=== PATIENT | female | born 1975 | race Caucasian/White ===

== ENCOUNTER 2016-08-13 18:39 | Inpatient (IN) | payer BC ==
--- NOTE | 2016-08-13 19:51 | EDM.PDOC ---
ED HPI GENERAL MEDICAL PROBLEM - General Chief Complaint: Respiratory Problem Stated Complaint: LUNG PAIN Time Seen by Provider: 08/13/16 19:05 Source of Information: Reports: Patient, Family (), RN Notes Reviewed History Limitations: Reports: No Limitations - History of Present Illness INITIAL COMMENTS - FREE TEXT/NARRATIVE: The patient has lymphangioleiomatosis, aka MCNAIR, a rare genetic disorder that causes proliferation of abnormal smooth muscle and cystic lesion formation, affecting multiple organs, but especially the lungs. Common symptoms include progressively worsening LIN and asthma-like reversible airflow obstruction. About a third of patients will develop a spontaneous pneumothorax. The patient states that she developed a "gurgling" in her lower left ribs with inspiration, whenever she was in the left decubitus position 2 nights ago. She states that she hears a "weird sounds". She chronically has chest tightness, but states it is worse than usual. She also reports worsening dyspnea on exertion. She had nausea 2 nights ago, but none since. No recent fever, vomiting, constipation, diarrhea, or urinary symptoms. No prior similar symptoms. The patient's PCP is Emani Mcclendon. Her Iron Carrier is Dr. Forrest. Left Chest Pain Score (Numeric/FACES): 2 - Related Data Allergies Allergy/AdvReac Type Severity Reaction Status Date / Time shellfish derived Allergy Rash Verified 04/29/16 16:33 Home Meds: Home Meds Dextroamphetamine/Amphetamine [Adderall 20 mg Tablet] 1 tab PO TID 04/29/16 [ History] Fluticasone/Vilanterol [Breo Ellipta 100-25 MCG Inhalation Kit] 1 puff INH DAILY 04/29/16 [History] Meloxicam 1 tab PO DAILY 04/29/16 [History] Methocarbamol [Robaxin] 1 tab PO TID PRN 04/29/16 [History] Metoprolol Succinate 1 tab PO DAILY 04/29/16 [History] clonazePAM [Clonazepam] 1 tab PO BID PRN 04/29/16 [History] oxyCODONE HCl/Acetaminophen [oxyCODONE-Acetaminophen 5-325] 1 tab PO Q6H PRN 12/05 [History] traMADol [Ultram] 1 tab PO QID PRN 04/29/16 [History] Ibuprofen [IJD: Ibuprofen] 600 mg PO Q4H PRN #30 tablet 04/30/16 [Rx] Fluticasone/Vilanterol [Breo Ellipta 200-25 Mcg INH] 1 puff INH DAILY 08/13/16 [ History] Sirolimus 1 mg PO DAILY 08/13/16 [History] Past Medical History HEENT History: Reports: Allergic Rhinitis Cardiovascular History: Reports: Hypertension 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: Musculoskeletal History: Reports: Other (See Below) (lymphangioleiomatosis, aka MCNAIR) Psychiatric History: Reports: ADD, ADHD, Anxiety Hematologic History: Reports: Anemia, Iron Deficiency - Past Surgical History Female Surgical History: Reports: Section (x 2) Social & Family History - Tobacco Use Smoking Status *Q: Former Smoker Years of Tobacco use: 3 Used Tobacco, but Quit: Yes Month Tobacco Last Used: 10 yrs - Caffeine Use Caffeine Use: Reports: Soda - Alcohol Use Alcohol Use History: No - Recreational Drug Use Recreational Drug Use: No - Living Situation & Occupation Living situation: Reports: , with Spouse, with Family (3 kids) Occupation: Unemployed ED ROS GENERAL - Review of Systems Review Of Systems: See Below Constitutional: Reports: No Symptoms HEENT: Reports: No Symptoms Respiratory: Reports: No Symptoms Cardiovascular: Reports: No Symptoms Endocrine: Reports: No Symptoms GI/Abdominal: Reports: No Symptoms : Reports: No Symptoms Musculoskeletal: Reports: No Symptoms Skin: Reports: No Symptoms Neurological: Reports: No Symptoms Psychiatric: Reports: No Symptoms Hematologic/Lymphatic: Reports: No Symptoms Immunologic: Reports: No Symptoms ED EXAM, GENERAL - Physical Exam Exam: See Below Exam Limited By: No Limitations General Appearance: Alert, WD/WN, No Apparent Distress, Anxious Eye Exam: Bilateral Eye: Normal Inspection Ears: Normal External Exam, Hearing Grossly Normal Ear Exam: Bilateral Ear: Auricle Normal Nose: Normal Inspection, No Blood Throat/Mouth: Normal Inspection, Normal Lips, Normal Voice, No Airway Compromise Head: Atraumatic, Normocephalic Neck: Normal Inspection, Full Range of Motion Respiratory/Chest: No Respiratory Distress, Lungs Clear, Normal Breath Sounds, No Accessory Muscle Use, Other (No crepitus). No: Decreased Breath Sounds, Crackles, Rhonchi, Wheezing, Prolonged Expiration Cardiovascular: Normal Peripheral Pulses, Regular Rate, Rhythm, No Edema, No Gallop, No JVD, No Murmur, No Rub GI/Abdominal: Normal Bowel Sounds, Soft, Non-Tender, No Organomegaly, No Distention, No Abnormal Bruit, No Mass (Female) Exam: Normal External Exam, Normal Speculum Exam, Normal Bimanual Exam Rectal (Female) Exam: Normal Exam, Normal Rectal Tone Back Exam: Normal Inspection, Full Range of Motion, NT Extremities: Normal Inspection, Normal Range of Motion, Non-Tender, Normal Capillary Refill, No Pedal Edema Neurological: Alert, Oriented, CN II-XII Intact, Normal Cognition, Normal Gait, Normal Reflexes, No Motor/Sensory Deficits Psychiatric: Normal Affect, Normal Mood Skin Exam: Warm, Dry, Intact, Normal Color, No Rash Lymphatic: No Adenopathy Course - Vital Signs Last Recorded V/S: Last Vital Signs Temp 36.7 C 08/13/16 18:57 Pulse 72 08/13/16 21:55 Resp 20 08/13/16 18:57 BP 145/75 H 08/13/16 21:55 Pulse Ox 95 08/13/16 18:57 - Orders/Labs/Meds Orders: Active Orders 24 hr Category Date Time Status Chest 2V [CR] Stat Exams 08/13/16 19:26 Taken Chest w Cont [CT] Stat Exams 08/13/16 20:24 Taken Metoprolol Succinate [Toprol XL] Med 08/14/16 21:00 Active 50 mg PO BEDTIME Sodium Chloride 0.9% [Normal Saline] 1,000 ml Med 08/13/16 20:30 Active IV ASDIRECTED Sodium Chloride 0.9% [Saline Flush] Med 08/13/16 21:12 Active 10 ml FLUSH ONETIME PRN Medication Orders Sodium Chloride (Normal Saline) 1,000 mls @ 150 mls/hr IV ASDIRECTED NOEMÍ Last Admin: 08/13/16 20:51 Dose: 150 mls/hr Metoprolol Succinate (Toprol Xl) 50 mg PO BEDTIME NOEMÍ Last Admin: 08/13/16 21:55 Dose: 50 mg Sodium Chloride (Saline Flush) 10 ml FLUSH ONETIME PRN PRN Reason: Keep Vein Open Last Admin: 08/13/16 21:57 Dose: 10 ml Labs: Laboratory Tests 08/13/16 08/13/16 08/13/16 Range/Units 20:23 20:42 20:42 WBC 8.57 (3.98-10.04) K/mm3 RBC 5.05 (3.98-5.22) M/mm3 Hgb 14.4 (11.2-15.7) gm/L Hct 43.0 (34.1-44.9) % MCV 85.1 (79.4-94.8) fl MCH 28.5 (25.6-32.2) pg MCHC 33.5 (32.2-35.5) g/dl RDW Std Deviation 48.4 H (36.4-46.3) fL Plt Count 496 H (182-369) K/mm3 MPV 8.7 L (9.4-12.3) fl Neutrophils % (Manual) 62 H (40-60) % Band Neutrophils % 1 (0-10) % Lymphocytes % (Manual) 24 (20-40) % Atypical Lymphs % 0 % Monocytes % (Manual) 5 (2-10) % Eosinophils % (Manual) 7 H (0.7-5.8) % Basophils % (Manual) 1 (0.1-1.2) Platelet Estimate Adequate RBC Morph Comment Normal Puncture Site Rt radial ABG pH 7.42 (7.35-7.45) ABG pCO2 32.7 L (35.0-45.0) mmHg ABG pO2 65.0 L (80.0-100.0) mmHg ABG HCO3 20.7 L (22.0-26.0) meq/L ABG O2 Saturation 95.0 L (96.0-97.0) % ABG Base Excess -2.5 L (-2-2.0) Kayden Test Positive A-a Gradient 28 mmHg O2 Delivery Device Room air FiO2 21.00 (21.00-100.00) % Sodium 143 (136-145) mEq/L Potassium 3.8 (3.5-5.1) mEq/L Chloride 106 (98-107) mEq/L Carbon Dioxide 26 (21-32) mEq/L Anion Gap 14.8 (5-15) BUN 17 (7-18) mg/dL Creatinine 0.9 (0.55-1.02) mg/dL Est Cr Clr Drug Dosing 81.61 mL/min Estimated GFR (MDRD) > 60 (>60) mL/min BUN/Creatinine Ratio 18.9 H (14-18) Glucose 77 (74-106) mg/dL Calcium 9.2 (8.5-10.1) mg/dL Total Bilirubin 0.2 (0.2-1.0) mg/dL AST 19 (15-37) U/L ALT 27 (14-59) U/L Alkaline Phosphatase 89 (46-116) U/L Total Protein 8.4 H (6.4-8.2) g/dl Albumin 3.1 L (3.4-5.0) g/dl Globulin 5.3 gm/dL Albumin/Globulin Ratio 0.6 L (1-2) Meds: Medications Generic Name Dose Route Start Last Admin Trade Name Freq PRN Reason Stop Dose Admin Sodium Chloride 1,000 mls @ 150 mls/hr 08/13/16 20:30 08/13/16 20:51 Normal Saline IV 150 mls/hr ASDIRECTED NOEMÍ Administration Metoprolol Succinate 50 mg 08/14/16 21:00 08/13/16 21:55 Toprol Xl PO 50 mg BEDTIME NOEMÍ Administration Sodium Chloride 10 ml 08/13/16 21:12 08/13/16 21:57 Saline Flush FLUSH 10 ml ONETIME PRN Administration Keep Vein Open Discontinued Medications Generic Name Dose Route Start Last Admin Trade Name Freq PRN Reason Stop Dose Admin Iopamidol 80 ml 08/13/16 21:12 08/13/16 21:53 Isovue-370 (76%) IVPUSH 08/13/16 21:13 80 ml ONETIME ONE Administration Oxycodone/Acetaminophen 1 tab 08/13/16 21:45 08/13/16 21:56 Percocet 325-5 Mg PO 08/13/16 21:46 1 tab ONETIME ONE Administration - Radiology Interpretation Free Text/Narrative:: Two-view chest radiograph reviewed. Cardiac silhouette is within normal limits. No pulmonary vascular congestion, although there does appear to be diffusely increased pulmonary markings, consistent with pulmonary fibrosis. No pleural effusions. No focal infiltrate. There appears to be a very small pneumothorax at the left costophrenic angle. Formal read per the Radiologist pending. CT of the chest with IV contrast is read by virtual radiology as: 1. Findings consistent with lymphangioleiomyomatosis. 2. Small LEFT hydropneumothorax. - Re-Assessments/Exams Free Text/Narrative Re-Assessment/Exam: 08/13/16 20:33 Chest radiograph results discussed with Dr. Coffey, teletype mechanic at [facility], stonemason for Dr. Forrest. He is recommending we check a CT scan of the chest to not only confirm a normal thorax but also possible causes of pneumothorax, such as local infection. He would like me to check an ABG, then, presuming there is a pneumothorax, treated with 100% oxygen. This would require admission to the hospital to follow serial chest radiographs. The patient will eventually require pleurocentesis. 08/13/16 22:[address] Jesus at 22:21. He agrees to admit the patient to the medical floor. I will write bridge orders. Departure - Departure Time of Disposition: 22:23 Disposition: Admitted As Inpatient 67 Condition: fair Clinical Impression: Lymphangiomyomatosis - Discharge Information - My Orders Last 24 Hours: My Active Orders 08/13/16 19:26 Chest 2V [CR] Stat 08/13/16 20:24 Chest w Cont [CT] Stat 08/13/16 20:30 Sodium Chloride 0.9% [Normal Saline] 1,000 ml IV ASDIRECTED 08/13/16 21:12 Sodium Chloride 0.9% [Saline Flush] 10 ml FLUSH ONETIME PRN 08/14/16 21:00 Metoprolol Succinate [Toprol XL] 50 mg PO BEDTIME - Assessment/Plan Last 24 Hours: My Active Orders 08/13/16 19:26 Chest 2V [CR] Stat 08/13/16 20:24 Chest w Cont [CT] Stat 08/13/16 20:30 Sodium Chloride 0.9% [Normal Saline] 1,000 ml IV ASDIRECTED 08/13/16 21:12 Sodium Chloride 0.9% [Saline Flush] 10 ml FLUSH ONETIME PRN 08/14/16 21:00 Metoprolol Succinate [Toprol XL] 50 mg PO BEDTIME
[2016-08-13] MEDS ORDERED: Sodium Chloride 0.9% 1,000 ML IV SCH (20:30)
[2016-08-13] MEDS ORDERED: Iopamidol 755 Mg/ML 100 ML Bottle IVPUSH ONE (21:12)
[2016-08-13] MEDS ORDERED: Sodium Chloride 0.9% 10 ML Syringe FLUSH PRN (21:12)
[2016-08-13] MEDS ORDERED: Acetaminophen/oxyCODONE 325-5 MG Tab PO ONE (21:45)
[2016-08-14] MEDS ORDERED: traZODone 50 MG Tab PO PRN (00:09)
[2016-08-14] MEDS ORDERED: Cyclobenzaprine 10 MG Tab PO PRN (03:32)
[2016-08-14] MEDS: Acetaminophen/oxyCODONE 325-5 MG Tab PO PRN ×2 (03:45→13:57)
[2016-08-14] MEDS ORDERED: LORazepam 2 MG/ML MDV IV PRN (06:00)
[2016-08-14] MEDS ORDERED: Albuterol/Ipratropium 3.0-0.5 MG/3 ML Neb Soln NEB PRN (06:00)
[2016-08-14] MEDS ORDERED: Ibuprofen 400 MG Tab PO PRN (06:00)
[2016-08-14] MEDS ORDERED: Bisacodyl 5 MG Tab PO PRN (06:00)
[2016-08-14] MEDS ORDERED: Promethazine 12.5 MG in Sodium Chloride 0.9% 50 ML IV PRN (06:00)
[2016-08-14] MEDS ORDERED: Polyethylene Glycol 3350 Powder 17 GM Packet PO PRN (06:00)
[2016-08-14] MEDS ORDERED: Ondansetron 4 MG/2 ML SDV IV PRN (06:00)
[2016-08-14] MEDS ORDERED: Acetaminophen 325 MG Tab PO PRN (06:00)
[2016-08-14] MEDS ORDERED: hydrALAZINE 20 MG/ML SDV IVPUSH PRN (06:00)
[2016-08-14] MEDS ORDERED: Metoprolol Tartrate 5 MG/5 ML SDV IVPUSH PRN (06:00)
[2016-08-14] MEDS ORDERED: Temazepam 15 MG Cap PO PRN (06:00)
[2016-08-14] MEDS ORDERED: Docusate Sodium 100 MG Cap PO PRN (06:00)
[2016-08-14] MEDS ORDERED: HYDROmorphone 0.5 MG/0.5 ML Syringe IVPUSH PRN (06:00)
--- NOTE | 2016-08-14 06:00 | PCM.HP ---
H&P History of Present Illness - General Date of Service: 08/14/16 Admit Problem/Dx: Admission Diagnosis/Problem Admission Diagnosis/Problem Spontaneous pneumothorax Source of Information: Patient, Old Records, Provider, RN Notes Reviewed History Limitations: Reports: No Limitations - History of Present Illness Initial Comments - Free Text/Narative: This is a 40 yo white female with past medical hx/o HTN, AR, MCNAIR ( Lymphangioleiomyomatosis), ADD/ADHD, Anxiety and SHALINI who comes in with worsening shortness of breath that started 3 days ago. Patient feels a pooping sound when she breaths localized to her left chest. She admits to having chronic chest tightness but no worse than usual. She denies any signs of systemic infection. Patient follows Dr. Forrest, Primary Special Educator in [place]. Dr. Coffey mohs surgeon railroad brakeman was consult and recommended patient get a CT scan, r/o infection and ABG. If pos for pneumothorax, to treat with 100% O2 with serial CXR. Her work up in ED shows, a CBC remarkable for platelet 496. Her chemistry is significant for total protein of 8.4, and albumin 3.1. Her ABG shows pH 7.42, pCO2 32.7, pO2 65, HCO3 20.7, and O2 sat of 95% on RA. her CT scan report reads Diffuse bilateral thin walled cysts consistent with lymphangioleiomyomatosis and small left hydropneumothorax. Patient was admitted for medical management of MCNAIR and Small Left Sided Hydropneumothorax. Left Chest Pain Score (Numeric/FACES): 2 - Related Data Allergies/Adverse Reactions: Allergies Allergy/AdvReac Type Severity Reaction Status Date / Time shellfish derived Allergy Rash Verified 04/29/16 16:33 Home Medications: Home Meds Dextroamphetamine/Amphetamine [Adderall 20 mg Tablet] 1 tab PO TID 04/29/16 [ History] Fluticasone/Vilanterol [Breo Ellipta 100-25 MCG Inhalation Kit] 1 puff INH DAILY 04/29/16 [History] Meloxicam 1 tab PO BEDTIME 04/29/16 [History] Methocarbamol [Robaxin] 1 tab PO TID PRN 04/29/16 [History] clonazePAM [Clonazepam] 1 tab PO BID PRN 04/29/16 [History] oxyCODONE HCl/Acetaminophen [oxyCODONE-Acetaminophen 5-325] 1 tab PO Q6H PRN 12/05 [History] traMADol [Ultram] 1 tab PO QID PRN 04/29/16 [History] Ibuprofen [IJD: Ibuprofen] 600 mg PO Q4H PRN #30 tablet 04/30/16 [Rx] Fluticasone/Vilanterol [Breo Ellipta 200-25 Mcg INH] 1 puff INH DAILY 08/13/16 [ History] Sirolimus 1 mg PO DAILY 08/13/16 [History] traZODone 50 mg PO BEDTIME PRN 08/13/16 [History] Cyclobenzaprine HCl [Cyclobenzaprine HCl] 10 mg PO BID PRN 08/14/16 [History] Metoprolol Succinate 50 mg PO BEDTIME 08/14/16 [History] Past Medical History - Past Health History Medical/Surgical History: Denies Medical/Surgical History HEENT History: Reports: Allergic Rhinitis Cardiovascular History: Reports: Hypertension Respiratory History: Reports: Other (See Below) Other Respiratory History: LAMS - lymphangioleiomyomatosis Gastrointestinal History: Reports: Other (See Below) Other Gastrointestinal History: liver cyst - presents with the LAMS Genitourinary History: Reports: Renal Calculus 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 Generalized pain from chemo drug Neurological History: Reports: None Psychiatric History: Reports: ADD, ADHD, Anxiety Endocrine/Metabolic History: Reports: None Hematologic History: Reports: Anemia, Iron Deficiency, Other (See Below) Other Hematologic History: both related to Immunologic History: Reports: Immunosuppression Other Immunologic History: on an immnosuppresent drug for the LAMS Oncologic (Cancer) History: Reports: None Other Oncologic History: LMA present - Lymphangioleiomyomatosis Dermatologic History: Reports: None - Past Surgical History Head Surgeries/Procedures: Reports: None Female Surgical History: Reports: Section Social & Family History - Family History Family Medical History: Noncontributory - Tobacco Use Smoking Status *Q: Former Smoker Years of Tobacco use: 2 Packs/Tins Daily: 1 Used Tobacco, but Quit: Yes Month Tobacco Last Used: 10 years ago Second Hand Smoke Exposure: No - Caffeine Use Caffeine Use: Reports: Soda Other Caffeine Use: sometimes - Recreational Drug Use Recreational Drug Use: No - Living Situation & Occupation Living situation: Reports: , with Spouse, with Family (3 kids) Occupation: Unemployed H&P Review of Systems - Review of Systems: Review Of Systems: ROS reveals no pertinent complaints other than HPI. Exam - Exam Exam: See Below - Vital Signs Vital Signs: Last Vital Signs Temp 36.6 C 08/13/16 23:26 Pulse 93 08/13/16 23:26 Resp 18 08/13/16 23:26 BP 127/66 08/13/16 23:26 Pulse Ox 100 08/13/16 23:26 Weight: 66.224 kg - Exam Quality Assessment: Supplemental Oxygen General: Alert, Oriented, Cooperative. No: Mild Distress HEENT: Conjunctiva Clear, EACs Clear, EOMI, Hearing Intact, Mucosa Moist & [place] , Nares Patent, Normal Nasal Septum, Posterior Pharynx Clear, Pupils Equal, Pupils Reactive Neck: Supple, Trachea Midline Lungs: Clear to Auscultation, Normal Respiratory Effort, Other (no crunchy sound or crepitus) Cardiovascular: Regular Rhythm Abdomen: Normal Bowel Sounds, Soft. No: Pelvis Stable, Organomegaly, Tenderness (Female) Exam: Deferred Rectal (Female) Exam: Deferred Back Exam: Normal Inspection, Decreased Range of Motion Extremities: Normal Inspection, Normal Pulses. No: Cyanosis, Edema Peripheral Pulses: 3+: Posterior Tibial (L), Posterior Tibial (R), Dorsalis Pedis (L), Dorsalis Pedis (R) Skin: Warm, Dry, Intact Neuro Extensive - Mental Status: Oriented x3, Normal Cognition, Memory Intact Neuro Extensive - Motor, Sensory, Reflexes: CN II-XII Intact, Normal Gait Psychiatric: Alert, Normal Affect, Normal Mood - Patient Data Result Diagrams: 08/13/16 20:42 08/13/16 20:42 *Q Meaningful Use (ADM) - VTE *Q VTE Criteria *Q: - Stroke *Q Stroke Criteria *Q: - AMI *Q AMI Criteria *Q: Problem List Initiated/Reviewed/Updated: Yes Orders Last 24hrs: Active Orders 24 hr Category Date Time Status Oxygen Therapy [RC] ASDIRECTED Care 08/14/16 01:52 Active Regular Diet [DIET] Diet 08/14/16 Breakfast Active Acetaminophen/oxyCODONE [Percocet 325-5 MG] Med 08/14/16 03:32 Active 1 tab PO Q6H PRN Cyclobenzaprine [Flexeril] Med 08/14/16 03:32 Active 10 mg PO BID PRN Meloxicam Med 08/14/16 21:00 Pending 1 tab PO BEDTIME traZODone Med 08/14/16 00:09 Active 50 mg PO BEDTIME PRN Resuscitation Status Routine Resus Stat 08/14/16 03:47 Ordered Medication Orders Cyclobenzaprine HCl (Flexeril) 10 mg PO BID PRN PRN Reason: Pain Last Admin: 08/14/16 03:45 Dose: 10 mg Metoprolol Succinate (Toprol Xl) 50 mg PO BEDTIME NOEMÍ Last Admin: 08/13/16 21:55 Dose: 50 mg Non-Formulary Medication (Meloxicam) 1 tab PO BEDTIME NOEMÍ Oxycodone/Acetaminophen (Percocet 325-5 Mg) 1 tab PO Q6H PRN PRN Reason: Pain Last Admin: 08/14/16 03:45 Dose: 1 tab Sodium Chloride (Saline Flush) 10 ml FLUSH ONETIME PRN PRN Reason: Keep Vein Open Last Admin: 08/13/16 21:57 Dose: 10 ml Trazodone HCl (Trazodone) 50 mg PO BEDTIME PRN PRN Reason: Insomnia Last Admin: 08/14/16 00:26 Dose: 50 mg Assessment/Plan Comment:: Assessment/Plan: Acute: MCNAIR (Lymphangioleiomyomatosis) - Supportive care - Follow up with Primary Special Educator after discharge - She appears to be fairly stable Small Left Sided Hydropneumothorax - 2/2 MCNAIR - Serial CXR - Continue 100% O2 Therapy - Consider GS consult if she becomes more symptomatic or increasing pneumothorax size Chronic: AR HTN ADD/ADHD Anxiety Chronic Pain SHALINI Plan: Admitted to the floor overnight with bridged orders Resume Home Meds Routine AM Labs RT consult SW/NICO for d/c planning Telephone Consult with Pulmo [facility]. Daily
[2016-08-14] MEDS ORDERED: ClonazePAM 0.5 MG Tab PO PRN (06:04)
[2016-08-14] MEDS ORDERED: traMADol 50 MG Tab PO PRN (06:04)
[2016-08-14] MEDS ORDERED: Methocarbamol 500 MG Tab PO PRN (06:30)
[2016-08-14] MEDS ORDERED: Formoterol/Mometasone 200-5 MCG 8.8 GM Inhaler IH SCH (06:30)
[2016-08-14] MEDS ORDERED: Metoprolol Succinate 50 MG Tab.ER PO SCH ×2 (09:00→21:00)
[2016-08-14] MEDS ORDERED: Enoxaparin 40 MG/0.4 ML Syringe SUBCUT SCH (09:00)
[2016-08-14] MEDS ORDERED: Non-Formulary Medication 1 Each (Fluticasone/Vilanterol 1 PUFF) INH SCH (09:00)
[2016-08-14] MEDS: Morphine 2 MG/ML Syringe IVPUSH PRN ×2 (09:14→15:21)
[2016-08-14] MEDS: Dextroamphetamine/Amphetamine [Adderall 20 Mg Tablet] PO SCH ×2 (09:24→15:30)
[2016-08-14 12:33] VITALS: BP 111/90
--- NOTE | 2016-08-14 14:27 | CR ---
Chest: Portable view of the chest was obtained. Comparison: Previous chest x-ray of 08/13/16. Moderate sized pneumothorax is seen. This has increased in size from previous exam. This involves approximately 30-40% of the chest. Diffuse interstitial change and cystic findings are seen throughout the chest which are stable. Heart size and mediastinum are normal. Impression: 1. Increasing size of left sided pneumothorax. Consider chest tube. Diagnostic code #5
[2016-08-14] MEDS ORDERED: LORazepam 2 MG/ML MDV IVPUSH ONE (15:15)
--- NOTE | 2016-08-14 15:23 | PCM.SN ---
- Free Text/Narrative Note: Repeat CXR shows increasing size if left sided pneumothorax. Called in report to Dr. Coffey plastic production machine setter [employer]. He wants chest tube placement and then pleurodesis afterwards. Informed him we could only do chest tube placement here. Dr. Coffey wants either pig tail or small sized tube but told him all our tubes comes standard-big based on my observations. Informed Dr. Coffey I will be transferring her to [place]. Dr. Coffey agreed to be consulted.
--- NOTE | 2016-08-14 15:29 | PCM.DCSUM1 ---
Discharge Summary - Hospital Course Brief History: This is a 40 yo white female with past medical hx/o HTN, AR, MCNAIR (Lymphangioleiomyomatosis), ADD/ADHD, Anxiety and SHALINI who comes in with worsening shortness of breath that started 3 days ago. Patient feels a pooping sound when she breaths localized to her left chest. She admits to having chronic chest tightness but no worse than usual. She denies any signs of systemic infection. She was admitted for medical management of small left sided pneumothorax. - Discharge Data Discharge Date: 08/14/16 Discharge Disposition: DC/Tfer to Acute Hospital 02 Condition: Good - Discharge Diagnosis/Problem(s) (1) Pulmonary lymphangioleiomyomatosis SNOMED Code(s): 093413341, 925605139 ICD Code: J84.81 - LYMPHANGIOLEIOMYOMATOSIS Status: Acute Current Visit: Yes (2) Pneumothorax on left SNOMED Code(s): 641268200 ICD Code: J93.9 - PNEUMOTHORAX, UNSPECIFIED Status: Acute Current Visit: Yes (3) Anxiety and depression SNOMED Code(s): 654201866 ICD Code: F41.9 - ANXIETY DISORDER, UNSPECIFIED; F32.9 - MAJOR DEPRESSIVE DISORDER, SINGLE EPISODE, UNSPECIFIED Status: Chronic Current Visit: Yes - Patient Summary/Data Operative Procedure(s) Performed: None Complications: Worsening left sized pneumothorax Consults: Consultations 08/14/16 06:02 Consult to Case Management [CONS] Routine Consult to Foreign Exchange Services Manager [CONS] Routine Consult to Spiritual Care [CONS] Routine OT Evaluation and Treatment [CONS] Routine PT Evaluation and Treatment [CONS] Routine Respiratory Care Assess and Treatment [CONS] Routine Recommended Follow-up Testing/Procedures: Chest tube placement and pleurodesis Hospital Course: Patient was admitted for medical management of small left sided pneumothorax. However her follow up CXR shows worsening size. We called [facility] Dr. Coffey and he recommended chest tube placement and pleurodesis. Unfortunately nobody does pleurodosis here so we decided she be shipped out to [place]. Dr. Coffey agreed to be consulted. Patient will be under the services of Dr. Trammell , Hospitalist. Her vitals are stable. She leave via ground once transportation gets here. - Patient Instructions Diet: Usual Diet as Tolerated, NPO Activity: As Tolerated Driving: Do Not Drive Showering/Bathing: May Shower Notify Provider of: Increased Pain, Swelling and Redness, Nausea and/or Vomiting Other/Special Instructions: - Transfer to [facility] under the services of the . Lesa Cuenca will be consulting. - Discharge Plan Home Medications: Home Meds Dextroamphetamine/Amphetamine [Adderall 20 mg Tablet] 1 tab PO TID 04/29/16 [ History] Fluticasone/Vilanterol [Breo Ellipta 100-25 MCG Inhalation Kit] 1 puff INH DAILY 04/29/16 [History] Meloxicam 1 tab PO BEDTIME 04/29/16 [History] Methocarbamol [Robaxin] 1 tab PO TID PRN 04/29/16 [History] clonazePAM [Clonazepam] 1 tab PO BID PRN 04/29/16 [History] oxyCODONE HCl/Acetaminophen [oxyCODONE-Acetaminophen 5-325] 1 tab PO Q6H PRN 12/05 [History] traMADol [Ultram] 1 tab PO QID PRN 04/29/16 [History] Ibuprofen [IJD: Ibuprofen] 600 mg PO Q4H PRN #30 tablet 04/30/16 [Rx] Fluticasone/Vilanterol [Breo Ellipta 200-25 Mcg INH] 1 puff INH DAILY 08/13/16 [ History] Sirolimus 1 mg PO DAILY 08/13/16 [History] traZODone 50 mg PO BEDTIME PRN 08/13/16 [History] Cyclobenzaprine HCl 10 mg PO BID PRN 08/14/16 [History] Metoprolol Succinate 50 mg PO BEDTIME 08/14/16 [History] Referrals: Emani Mcclendon, [employer] DYEING MACHINE TENDER [Primary Care Provider] - - Discharge Summary/Plan Comment DC Time >30 min.: Yes (45 mins) Discharge Summary/Plan Comment: Transfer to [facility] for upper level or care - General Info Date of Service: 08/14/16 Admission Dx/Problem (Free Text: Admission Diagnosis/Problem Admission Diagnosis/Problem Spontaneous pneumothorax Subjective Update: Follow Up Functional Status: Reports: pain controlled, tolerating diet, ambulating, urinating. Denies: new symptoms - Review of Systems General: Denies: Fever, Weakness, Fatigue, Malaise, Chills HEENT: Reports: no symptoms Pulmonary: Reports: shortness of breath Cardiovascular: Denies: Chest Pain, Palpitations, Dyspnea on Exertion Gastrointestinal: Denies: Abdominal pain, Nausea, Vomiting Genitourinary: Reports: no symptoms Musculoskeletal: Reports: no symptoms Skin: Reports: no symptoms Neurological: Denies: Confusion, Dizziness, Difficulty Walking, Weakness, Gait Disturbance Psychiatric: Reports: anxiety. Denies: confusion, depression, agitation, hallucinations Systems Review Comment: No overnight or acuet issue. She i relatively stable. - Patient Data Vitals - Most Recent: Last Vital Signs Temp 37.1 C 08/14/16 12:28 Pulse 85 08/14/16 12:28 Resp 12 08/14/16 12:28 BP 111/90 08/14/16 12:28 Pulse Ox 100 08/14/16 14:30 Weight - Most Recent: 66.224 kg I&O - Last 24 hours: Intake & Output 08/14/16 08/14/16 08/14/16 06:59 14:59 22:59 Intake Total 917 120 Output Total 400 Balance 517 120 Med Orders - Current: Current Medications Acetaminophen (Tylenol) 650 mg PO Q4H PRN PRN Reason: Pain (Mild 1-3)/fever Albuterol/Ipratropium (Duoneb 3.0-0.5 Mg/3 Ml) 3 ml NEB Q4H PRN PRN Reason: Shortness Of Breath/wheezing Bisacodyl (Dulcolax) 5 mg PO DAILY PRN PRN Reason: Constipation Clonazepam (Klonopin) 0.5 mg PO BID PRN PRN Reason: Anxiety Cyclobenzaprine HCl (Flexeril) 10 mg PO BID PRN PRN Reason: Pain Last Admin: 08/14/16 03:45 Dose: 10 mg Docusate Sodium (Colace) 100 mg PO BID PRN PRN Reason: Constipation Enoxaparin Sodium (Lovenox) 40 mg SUBCUT DAILY NOEMÍ Last Admin: 08/14/16 09:17 Dose: 40 mg Hydralazine HCl (Apresoline) 20 mg IVPUSH Q4H PRN PRN Reason: Hypertension Hydromorphone HCl (Dilaudid) 0.25 mg IVPUSH Q2H PRN PRN Reason: Pain (severe 7-10) Promethazine HCl 12.5 mg/ (Sodium Chloride) 50.5 mls @ 100 mls/hr IV Q6H PRN PRN Reason: Nausea/Vomiting Ibuprofen (Motrin) 400 mg PO Q6H PRN PRN Reason: Pain (mild 1-3) Lorazepam (Ativan) 1 mg IV Q6H PRN PRN Reason: Anxiety Lorazepam (Ativan) 2 mg IVPUSH ONETIME ONE Stop: 08/14/16 15:16 Methocarbamol (Robaxin) 750 mg PO TID PRN PRN Reason: Spasms Metoprolol Succinate (Toprol Xl) 50 mg PO BEDTIME [facility] Last Admin: 08/13/16 21:55 Dose: 50 mg Metoprolol Tartrate (Lopressor) 5 mg IVPUSH Q4H PRN PRN Reason: Tachycardia Mometasone Furoate/Formoterol Fumar (Dulera 200-5 Mcg) 2 puff IH BIDRT [facility] Last Admin: 08/14/16 09:55 Dose: 2 puff Morphine Sulfate (Morphine) 1 mg IVPUSH Q4H PRN PRN Reason: Dyspnea Last Admin: 08/14/16 15:21 Dose: 1 mg Ondansetron HCl (Zofran) 4 mg IV Q6H PRN PRN Reason: Nausea/Vomiting Oxycodone/Acetaminophen (Percocet 325-5 Mg) 1 tab PO Q6H PRN PRN Reason: Pain Last Admin: 08/14/16 13:57 Dose: 1 tab Meloxicam 15 Mg 0 each PO BEDTIME [facility] Dextroamphetamine/Amphetamine [ Adderall 20 Mg Tablet] 0 each PO TID [facility] Last Admin: 08/14/16 09:24 Dose: Not Given Sirolimus 1 Mg 0 each PO DAILY [facility] Last Admin: 08/14/16 09:24 Dose: Not Given Polyethylene Glycol (Miralax) 17 gm PO DAILY PRN PRN Reason: Constipation Senna/Docusate Sodium (Senna Plus) 1 tab PO BID PRN PRN Reason: Constipation Temazepam (Restoril) 15 mg PO BEDTIME PRN PRN Reason: Sleep Tramadol HCl (Ultram) 50 mg PO QID PRN PRN Reason: Pain Trazodone HCl (Trazodone) 50 mg PO BEDTIME PRN PRN Reason: Insomnia Last Admin: 08/14/16 00:26 Dose: 50 mg Discontinued Medications Sodium Chloride (Normal Saline) 1,000 mls @ 150 mls/hr IV ASDIRECTED [facility] Last Admin: 08/13/16 20:51 Dose: 150 mls/hr Iopamidol (Isovue-370 (76%)) 80 ml IVPUSH ONETIME ONE Stop: 08/13/16 21:13 Last Admin: 08/13/16 21:53 Dose: 80 ml Metoprolol Succinate (Toprol Xl) 100 mg PO DAILY [facility] Last Admin: 08/14/16 09:11 Dose: Not Given Non-Formulary Medication (Fluticasone/Vilanterol) 1 puff INH DAILY [facility] Oxycodone/Acetaminophen (Percocet 325-5 Mg) 1 tab PO ONETIME ONE Stop: 08/13/16 21:46 Last Admin: 08/13/16 21:56 Dose: 1 tab Sodium Chloride (Saline Flush) 10 ml FLUSH ONETIME PRN PRN Reason: Keep Vein Open Last Admin: 08/13/16 21:57 Dose: 10 ml *Q Meaningful Use (DIS) - VTE *Q VTE Criteria *Q: - Stroke *Q Stroke Criteria *Q: - AMI *Q AMI Criteria *Q:
--- NOTE | 2016-08-15 08:17 | CT ---
CT chest Technique: Multiple axial sections were obtained from above the lung apices inferiorly through the lung bases. Intravenous contrast was utilized. Comparison: No previous chest CT, previous chest x-ray performed earlier on the same day (7:53 PM). Findings: Mediastinum and hilar regions show no adenopathy or mass. No chest wall abnormalities are seen. No coronary artery calcification is noted. Small portion of the visualized upper abdominal structures show a vague low-density lesion within the right lobe of the liver measuring approximately 1.1 cm in size which is likely benign. Innumerable air-filled cysts seen throughout both lungs compatible with clinical history of lymphangioleiomyomatosis (MCNAIR). Interstitial fibrosis is also seen diffusely within both lungs. Left-sided pneumothorax is seen with small amount of pleural fluid also noted within the left base. No right-sided pneumothorax is seen. Bone window settings were reviewed which show minimal degenerative spurring within the spine. Impression: 1. Left-sided hydropneumothorax which by CT exam appears to involve 20-30 percent of the lung. Consider chest tube. 2. Diffuse cystic changes and mild diffuse interstitial fibrosis. Findings are compatible with clinical history of lymphangioleiomyomatosis . 3. Other findings felt to be incidental as described above. Diagnostic code #5 Agree with preliminary report issued by [employer] ([employer] preliminary report dictated on 08/13/16, 11:05 PM Central Time)
--- NOTE | 2016-08-15 08:17 | CR ---
Chest: Two views of the chest were obtained. Comparison: Previous chest x-ray of 10/31/14. Heart size and mediastinum are normal. Lung markings are increased which appear to be chronic but improved from prior exam. Lungs are hyperinflated. Small left sided pneumothorax is seen measuring approximately 15-20 percent. Blunting of the lateral left costophrenic angle is seen compatible with small amount of fluid. Bony structures are grossly intact. Impression: 1. Small hydropneumothorax with pneumothorax measuring around 15-20 percent. 2. Chronic increased lung markings which are improved from previous study of 10/31/14. Diagnostic code #5
== END 2016-08-14 16:04 | DRG 143 ==
LOC: JD.ED 18:39 → JD.MS 22:44
PROVIDERS: ADMIT Internal Medicine; ATTEND Internal Medicine
DX: J94.8 Other specified pleural conditions (principal); J84.81 Lymphangioleiomyomatosis; I10 Essential (primary) hypertension; J30.9 Allergic rhinitis, unspecified; D50.9 Iron deficiency anemia, unspecified; F41.9 Anxiety disorder, unspecified; Z79.899 Other long term (current) drug therapy; Z87.891 Personal history of nicotine dependence; Z91.013 Allergy to seafood; F90.9 Attention-deficit hyperactivity disorder, unspecified type; G89.29 Other chronic pain
CPT/HCPCS: 36415; 36600; 71010; 71010-26; 71020; 71020-26; 71260; 71260-26; 80053; 82803; 85025; 94664; 96360; 96361; 97161-GP; 99285; 99285-25; A9270-GY; J1650; J2060; J2270; J7040; J7050; Q9967

== ENCOUNTER 2016-08-24 11:38 | Emergency (ER) | payer BC ==
--- NOTE | 2016-08-24 12:06 | EDM.PDOC ---
ED HPI GENERAL MEDICAL PROBLEM - General Chief Complaint: Lower Extremity Injury/Pain Stated Complaint: LEG PAIN Time Seen by Provider: 08/24/16 12:01 Source of Information: Reports: Patient, Family (spouse) History Limitations: Reports: No Limitations - History of Present Illness INITIAL COMMENTS - FREE TEXT/NARRATIVE: 40-year-old female presents to the ED for evaluation of bilateral calf pain. Concern for DVT presented itself after she discussed her recent hospitalization with nurse. Patient was admitted to [facility] in [facility] due to a pneumothorax. She had a initial Heimlich valve placed for 48 hours but it failed to reduce the pneumothorax. She therefore then had a formal thoracotomy with pleural thesis and pleurectomy and use of talcum powder to provide dermodesis. She had a chest tube in place for 48 hours and was removed last Tuesday. Supposedly she's been laying around a bit more than certainly normally. She has pain in both calf muscles and gastrocnemius muscles distribution. Denies any shortness of breath or pleuritic pain. Onset: Gradual (Noticed calf muscle tenderness yesterday.) Onset Date: 08/23/16 Duration: Hour(s):, Constant Location: Reports: Lower Extremity, Left, Lower Extremity, Right (The distribution of the calf musculature posteriorly. Must musculature posteriorly.) Quality: Reports: Ache Severity: Moderate (Worsened by walking.) Improves with: Reports: Rest Worsens with: Reports: Movement Context: Denies: Activity (Walking.), Exercise, Lifting, Sick Contact, Trauma, Other Associated Symptoms: Reports: No Other Symptoms, Chest Pain (Has a little chest pain at the chest tube insertion site. The wound in this area was reviewed and it is healing satisfactorily.). Denies: Confusion, Cough, cough w sputum Treatments PER DIEM CLERK: Reports: Other (see below) (None.Did receive Lovenox injections subcutaneously in the abdomen while she was hospitalized.) - Related Data Allergies Allergy/AdvReac Type Severity Reaction Status Date / Time shellfish derived Allergy Rash Verified 04/29/16 16:33 Home Meds: Home Meds Dextroamphetamine/Amphetamine [Adderall 20 mg Tablet] 1 tab PO TID 04/29/16 [ History] Fluticasone/Vilanterol [Breo Ellipta 100-25 MCG Inhalation Kit] 1 puff INH DAILY 04/29/16 [History] Meloxicam 1 tab PO BEDTIME 04/29/16 [History] Methocarbamol [Robaxin] 1 tab PO TID PRN 04/29/16 [History] clonazePAM [Clonazepam] 1 tab PO BID PRN 04/29/16 [History] oxyCODONE HCl/Acetaminophen [oxyCODONE-Acetaminophen 5-325] 1 tab PO Q6H PRN 12/05 [History] traMADol [Ultram] 1 tab PO QID PRN 04/29/16 [History] Ibuprofen [IJD: Ibuprofen] 600 mg PO Q4H PRN #30 tablet 04/30/16 [Rx] Fluticasone/Vilanterol [Breo Ellipta 200-25 Mcg INH] 1 puff INH DAILY 08/13/16 [ History] Sirolimus 1 mg PO DAILY 08/13/16 [History] traZODone 50 mg PO BEDTIME PRN 08/13/16 [History] Cyclobenzaprine HCl 10 mg PO BID PRN 08/14/16 [History] Metoprolol Succinate 50 mg PO BEDTIME 08/14/16 [History] Past Medical History - Past Health History Medical/Surgical History: Denies Medical/Surgical History HEENT History: Reports: Allergic Rhinitis Cardiovascular History: Reports: Hypertension Respiratory History: Reports: Other (See Below) Other Respiratory History: LAMS - lymphangioleiomyomatosis Gastrointestinal History: Reports: Other (See Below) Other Gastrointestinal History: liver cyst - presents with the LAMS Genitourinary History: Reports: Renal Calculus Other Genitourinary History: 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 Generalized pain from chemo drug Neurological History: Reports: None Psychiatric History: Reports: ADD, ADHD, Anxiety Endocrine/Metabolic History: Reports: None Hematologic History: Reports: Anemia, Iron Deficiency, Other (See Below) Other Hematologic History: both related to Immunologic History: Reports: Immunosuppression Other Immunologic History: on an immnosuppresent drug for the LAMS Oncologic (Cancer) History: Reports: None Other Oncologic History: LMA present - Lymphangioleiomyomatosis Dermatologic History: Reports: None - Past Surgical History Head Surgeries/Procedures: Reports: None Female Surgical History: Reports: Section Social & Family History - Family History Family Medical History: Noncontributory - Tobacco Use Smoking Status *Q: Former Smoker Years of Tobacco use: 2 Packs/Tins Daily: 1 Used Tobacco, but Quit: Yes Month Tobacco Last Used: 10 years ago Second Hand Smoke Exposure: No - Caffeine Use Caffeine Use: Reports: Soda Other Caffeine Use: sometimes - Recreational Drug Use Recreational Drug Use: No - Living Situation & Occupation Living situation: Reports: , with Spouse, with Family (3 kids) Occupation: Unemployed Review of Systems - Review of Systems Review Of Systems: See Below Constitutional: Reports: No Symptoms. Denies: Chills, Diaphoresis, Weakness, Other Eyes: Reports: No Symptoms Ears: Reports: No Symptoms Nose: Reports: No Symptoms Mouth/Throat: Reports: No Symptoms Respiratory: Reports: Other (Recovering from your be cysts on the left lung. Intermittent pleuritic chest pains.). Denies: Shortness of Breath, Wheezing Cardiovascular: Reports: No Symptoms GI/Abdominal: Reports: No Symptoms Genitourinary: Reports: No Symptoms Musculoskeletal: Reports: Other (Bilateral posterior calf pain) Skin: Reports: No Symptoms ( since yesterday.) Neurological: Reports: No Symptoms Psychiatric: Reports: No Symptoms ED EXAM, GENERAL - Physical Exam Exam: See Below Exam Limited By: No Limitations General Appearance: Alert, WD/WN, Anxious, Mild Distress Respiratory/Chest: No Respiratory Distress, Lungs Clear, Normal Breath Sounds, No Accessory Muscle Use, Other (Elected her chest wall wound where she had the chest tube. The wound is healing satisfactorily this time) Cardiovascular: Normal Peripheral Pulses, Regular Rate, Rhythm, No Edema, No Gallop, No Murmur Peripheral Pulses: 3+: Posterior Tibial (L), Posterior Tibial (R), Dorsalis Pedis (L), Dorsalis Pedis (R) GI/Abdominal: Normal Bowel Sounds Extremities: Other (She has no evidence of edema in either lower extremity. The calf muscles and cells are somewhat tender to palpation in the gastrocnemius muscle distribution bilaterally left perhaps a little worse on the right. She has good pulses. There is no evidence of DVT clinically.) Neurological: Alert, Oriented, CN II-XII Intact, Normal Cognition, Normal Gait Psychiatric: Normal Affect, Normal Mood Skin Exam: Warm, Dry, Intact, Normal Color, No Rash Course - Vital Signs Last Recorded V/S: Last Vital Signs Temp 36.7 C 08/24/16 11:52 Pulse 96 08/24/16 11:52 Resp 20 08/24/16 11:52 BP 133/90 08/24/16 11:52 Pulse Ox 86 L 08/24/16 13:46 - Orders/Labs/Meds Orders: Active Orders 24 hr Category Date Time Status Oxygen Therapy [RC] PRN Care 08/24/16 13:46 Active Chest 1V Frontal [CR] Stat Exams 08/24/16 13:44 Taken Venous Doppler Lwr Ext Bi [US] Stat Exams 08/24/16 13:03 Taken Labs: Laboratory Tests 08/24/16 08/24/16 08/24/16 Range/Units 12:13 12:13 12:13 WBC 5.63 (3.98-10.04) K/mm3 RBC 4.70 (3.98-5.22) M/mm3 Hgb 13.1 (11.2-15.7) gm/L Hct 40.1 (34.1-44.9) % MCV 85.3 (79.4-94.8) fl MCH 27.9 (25.6-32.2) pg MCHC 32.7 (32.2-35.5) g/dl RDW Std Deviation 46.1 (36.4-46.3) fL Plt Count 448 H (182-369) K/mm3 MPV 8.3 L (9.4-12.3) fl Neutrophils % (Manual) 46 (40-60) % Band Neutrophils % 0 (0-10) % Lymphocytes % (Manual) 39 (20-40) % Atypical Lymphs % 0 % Monocytes % (Manual) 6 (2-10) % Eosinophils % (Manual) 8 H (0.7-5.8) % Basophils % (Manual) 1 (0.1-1.2) Platelet Estimate Adequate RBC Morph Comment Normal PT 10.1 (8.0-13.0) SECONDS INR 0.93 D-Dimer, Quantitative 7.37 H (0.19-0.59) mg/L Sodium 139 (136-145) mEq/L Potassium 4.6 (3.5-5.1) mEq/L Chloride 103 (98-107) mEq/L Carbon Dioxide 24 (21-32) mEq/L Anion Gap 16.6 H (5-15) BUN 12 (7-18) mg/dL Creatinine 1.0 (0.55-1.02) mg/dL Est Cr Clr Drug Dosing 78.93 mL/min Estimated GFR (MDRD) > 60 (>60) mL/min BUN/Creatinine Ratio 12.0 L (14-18) Glucose 114 H (74-106) mg/dL Calcium 8.8 (8.5-10.1) mg/dL Total Bilirubin 0.2 (0.2-1.0) mg/dL AST 25 (15-37) U/L ALT 30 (14-59) U/L Alkaline Phosphatase 84 (46-116) U/L Total Protein 7.7 (6.4-8.2) g/dl Albumin 3.1 L (3.4-5.0) g/dl Globulin 4.6 gm/dL Albumin/Globulin Ratio 0.7 L (1-2) - Radiology Interpretation Free Text/Narrative:: 40-year-old female presents the ED for evaluation of bilateral lower extremity pain in the distribution of the calf musculature. This was noted yesterday and seems to be as bad as it was yesterday. Able to walk at times. She had recent hospitalization for a week due to spontaneous pneumothorax on the left side. Patient has a hereditary disease called lymphangioleiomyomatosis. She developed a spontaneous pneumothorax on the left side which failed to improve with Heimlich valve. She never required a thoracostomy where she had produces some pleural dissection. She then had a large chest tube placed for 48 hours. She is recovering from his surgery last week. She was discharged home on August 20. She developed diffuse aching in both lower extremities yesterday and seen today with painful walking. Concern was therefore for possible DVT development. However examination she has some tenderness in the calf musculature particularly the gastrocnemius muscles bilaterally. However clinically there is no evidence of a DVT. Pain does go into order a CBC and a d-dimer on her versus ultrasound in both lower extremities. Of note is brought to my attention that her O2 sats dipped from 92% down to 89%. I find this a bit unusual at her age that she would have any hypoxemia. Therefore the possibility of a pulmonary embolism does exist.. - Re-Assessments/Exams Free Text/Narrative Re-Assessment/Exam: 08/24/16 13:05 labs are back to reveal a normal white count at 5.63 hemoglobin 13.1 hematocrit 40.1 platelets are mildly elevated at 440,000. PT is 10.1 INR 0.93. D dimer came back elevated at 7.37. Therefore she will have bilateral Doppler ultrasounds performed on her lower extremities. 08/24/16 13:47 patient's O2 sats been staying around 88--89%. I will therefore start her on 2 L of oxygen by nasal prongs. It appears that she is likely going to need CT pulmonary angiogram. 08/24/16 14:24 Doppler ultrasound done on both lower extremities does not reveal any signs of DVT in either leg. She will therefore be discharged to home. 02 sts improve to 96 % when she takes a few deep breaths. Splinting respirations on the Lt due to recent pleurodesis. CXR reveals no pneumothorax and evidence of Lt sided infiltrate laterally due to recent pleurodesis. Departure - Departure Time of Disposition: 14:20 Disposition: Home, Self-Care 01 Condition: fair Clinical Impression: Bilateral lower extremity pain - Discharge Information Referrals: Emani Mcclendon, INTERIOR [employer]SEMBLIES DEVELOPER [employer] [Primary Care Provider] - Forms: ED Department Discharge Additional Instructions: Evaluation in the emergency today in regards to bilateral lower extremity pain after being laid off last week due to pneumothorax in the left lung. Chest tube placed after initial thoracostomy tube failed to improve pneumothorax. Surgery was performed of the left lung with pleurodesis and possibly stapling of blebs that were on the superficial surface of the lung. Development of bilateral lower extremity pain in the gastrocnemius muscles over the last 48 hours raised concern for possible development of deep venous thrombosis. From the history it sounds like he did receive Lovenox injections subcutaneous in the abdominal wall the you're hospitalized. On examination her lower extremities there is no clinical evidence of deep venous thrombosis. D-dimer was found to be elevated however likely related to recent surgery. Therefore ultrasound was completed on both lower extremities and no blood clots were identified.Suggest follow up with Emani Mcclendon in clinic next week for pulse oximitry check up. - My Orders Last 24 Hours: My Active Orders 08/24/16 13:03 Venous Doppler Lwr Ext Bi [US] Stat 08/24/16 13:44 Chest 1V Frontal [CR] Stat 08/24/16 13:46 Oxygen Therapy [RC] PRN - Assessment/Plan Last 24 Hours: My Active Orders 08/24/16 13:03 Venous Doppler Lwr Ext Bi [US] Stat 08/24/16 13:44 Chest 1V Frontal [CR] Stat 08/24/16 13:46 Oxygen Therapy [RC] PRN
--- NOTE | 2016-08-24 14:29 | US ---
Bilateral lower extremity deep venous ultrasound: Duplex and color flow imaging was obtained of the right and left common femoral, proximal greater saphenous, superficial femoral, popliteal, posterior tibial and peroneal veins. Findings: Normal phasic flow, augmentation and compression is seen. Impression: 1. No evidence of deep venous thrombosis is seen within either the right or left lower extremities. Diagnostic code #1
--- NOTE | 2016-08-24 14:34 | CR ---
Chest: Portable view of the chest was obtained. Comparison: Previous chest x-ray of 08/14/16. Diffuse interstitial change is seen which appears to be chronic and due to fibrosis. Vague lucency is seen along the lateral left upper chest. Difficult to exclude small residual pneumothorax from prior pneumothorax being seen en face. Nothing acute is otherwise seen within the lungs. Heart size and mediastinum are normal. Bony structures are unremarkable. Impression: 1. Diffuse interstitial change compatible with fibrosis from lymphangioleiomyomatosis as noted in previous clinical history. 2. Vague lucency along the lateral left upper chest and difficult to exclude residual pneumothorax being seen en face which could be loculated. Diagnostic code #3
[2016-08-24 14:43] VITALS: BP 134/89
== END 2016-08-24 14:38 | disposition home or self-care (01) ==
LOC: JD.ED 11:38
DX: M79.604 Pain in right leg (principal); M79.605 Pain in left leg; I10 Essential (primary) hypertension; F41.9 Anxiety disorder, unspecified; Z86.2 Personal history of diseases of the blood and blood-forming organs and certain disorders involving the immune mechanism; Z79.899 Other long term (current) drug therapy; Z91.013 Allergy to seafood; Z98.890 Other specified postprocedural states
CPT/HCPCS: 36415; 71010; 71010-26; 80053; 85025; 85379; 85610; 93970; 93970-26; 99283; 99284-25

== ENCOUNTER 2016-09-02 12:11 | Emergency (ER) | payer BC ==
[2016-09-02 12:25] VITALS: BP 144/105
--- NOTE | 2016-09-02 12:36 | EDM.PDOC ---
ED HPI GENERAL MEDICAL PROBLEM - General Chief Complaint: Respiratory Problem Stated Complaint: CHEST PAIN/GARGLING SOUND WHEN BREATHING Time Seen by Provider: 09/02/16 12:33 Source of Information: Reports: Patient, Family History Limitations: Reports: No Limitations - History of Present Illness INITIAL COMMENTS - FREE TEXT/NARRATIVE: 40-year-old female presents to the ED with mildly increased shortness of breath and gurgling in sounds in the left side of her chest. Patient had a spontaneous pneumothorax about 2 weeks ago. She required a Heimlich valve which failed to resolve the problem. She required open open thoracostomy tube drainage. She then underwent a pleural ectomy and then pleurodesis with talcum powder. The thoracotomy tube was then pulled 2 days later. I seen her last week with pain in her calves and she was worked up to rule out a DVT development and none was found. Her elevated d-dimer 7.56 was felt to be due to the recent surgery. She has noted an appreciable difference in the sounds of her breathing with gurgling sounds in the left side of her chest over the last 2 days. There is increased discomfort but not sharp and stabbing with this. No fever or chills. No cough or sputum production. He is concerned she's developed a new pneumothorax. Onset: Gradual Onset Date: 09/01/16 Duration: Hour(s): Location: Reports: Chest Quality: Reports: Other (See history of present illness) Severity: Moderate (discomfort throughout the left side of her chest but not sharp and pleuritic.) Worsens with: Reports: Breathing Context: Reports: Activity Associated Symptoms: Reports: No Other Symptoms, Chest Pain, Shortness of Breath. Denies: Confusion, Cough (Chest discomfort but not pleuritic pain), cough w sputum, Diaphoresis, Fever/Chills, Headaches, Loss of Appetite, Malaise , Nausea/Vomiting, Rash, Seizure, Syncope (Chronically. Perhaps a little worse than normal) Left Chest Pain Score (Numeric/FACES): 5 - Related Data Allergies Allergy/AdvReac Type Severity Reaction Status Date / Time shellfish derived Allergy Rash Verified 09/02/16 12:25 Home Meds: Home Meds Dextroamphetamine/Amphetamine [Adderall 20 mg Tablet] 1 tab PO TID 04/29/16 [ History] Fluticasone/Vilanterol [Breo Ellipta 100-25 MCG Inhalation Kit] 1 puff INH DAILY 04/29/16 [History] Meloxicam 1 tab PO BEDTIME 04/29/16 [History] Methocarbamol [Robaxin] 1 tab PO TID PRN 04/29/16 [History] clonazePAM [Clonazepam] 1 tab PO BID PRN 04/29/16 [History] oxyCODONE HCl/Acetaminophen [oxyCODONE-Acetaminophen 5-325] 1 tab PO Q6H PRN 12/05 [History] traMADol [Ultram] 1 tab PO QID PRN 04/29/16 [History] Ibuprofen [IJD: Ibuprofen] 600 mg PO Q4H PRN #30 tablet 04/30/16 [Rx] Fluticasone/Vilanterol [Breo Ellipta 200-25 Mcg INH] 1 puff INH DAILY 08/13/16 [ History] Sirolimus 1 mg PO DAILY 08/13/16 [History] traZODone 50 mg PO BEDTIME PRN 08/13/16 [History] Cyclobenzaprine HCl 10 mg PO BID PRN 08/14/16 [History] Metoprolol Succinate 50 mg PO BEDTIME 08/14/16 [History] oxyCODONE HCl/Acetaminophen [Percocet 5-325 mg Tablet] 1 - 2 each PO Q4H PRN # 24 tablet 09/02/16 [Rx] Past Medical History - Past Health History Medical/Surgical History: Denies Medical/Surgical History HEENT History: Reports: Allergic Rhinitis Cardiovascular History: Reports: Hypertension Respiratory History: Reports: Other (See Below) Other Respiratory History: LAMS - lymphangioleiomyomatosis, pneumothorax Gastrointestinal History: Reports: Other (See Below) Other Gastrointestinal History: liver cyst - presents with the LAMS Genitourinary History: Reports: Renal Calculus Other Genitourinary History: 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 Generalized pain from chemo drug Neurological History: Reports: None Psychiatric History: Reports: ADD, ADHD, Anxiety Endocrine/Metabolic History: Reports: None Hematologic History: Reports: Anemia, Iron Deficiency, Other (See Below) Other Hematologic History: both related to Immunologic History: Reports: Immunosuppression Other Immunologic History: on an immnosuppresent drug for the LAMS Oncologic (Cancer) History: Reports: None Other Oncologic History: LMA present - Lymphangioleiomyomatosis Dermatologic History: Reports: None - Past Surgical History Head Surgeries/Procedures: Reports: None Respiratory Surgical History: Reports: Pleurodesis, Other (See Below) Other Respiratory Surgeries/Procedures: chest tube placement Female Surgical History: Reports: Section Social & Family History - Family History Family Medical History: Noncontributory - Tobacco Use Smoking Status *Q: Former Smoker Years of Tobacco use: 2 Packs/Tins Daily: 1 Used Tobacco, but Quit: Yes Month Tobacco Last Used: 10 years ago Second Hand Smoke Exposure: No - Caffeine Use Caffeine Use: Reports: Soda Other Caffeine Use: sometimes - Recreational Drug Use Recreational Drug Use: No - Living Situation & Occupation Living situation: Reports: , with Spouse, with Family (3 kids) Occupation: Unemployed ED ROS GENERAL - Review of Systems Review Of Systems: See Below Constitutional: Reports: Fatigue. Denies: Fever, Chills, Malaise, Weakness, Decreased Appetite, Weight Loss HEENT: Reports: No Symptoms Respiratory: Reports: Shortness of Breath, Other (Gurgling respirations left chest.). Denies: Wheezing, Pleuritic Chest Pain Cardiovascular: Reports: Chest Pain, Blood Pressure Problem (Left chest discomfort.), Dyspnea on Exertion (Chronically.). 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 No: Lymphadenopathy (L), Lymphadenopathy (R) Respiratory/Chest: Respiratory Distress (Mild tachypnea at rest), Decreased Breath Sounds (Markedly decreased breath sounds to left lower lung field but no dullness to percussion.), Rhonchi (She has rhonchi orally large lower pleural rub on the left side particularly heard throughout the left anterior chest.). No: Crackles, Rales, Wheezing Cardiovascular: Normal Peripheral Pulses, Regular Rate, Rhythm, No Edema, No Murmur GI/Abdominal: Normal Bowel Sounds, Soft, Non-Tender, No Organomegaly, No Distention Extremities: Normal Inspection, Normal Range of Motion, Non-Tender, No Pedal Edema, Normal Capillary Refill Neurological: Alert, Oriented, CN II-XII Intact, Normal Cognition, Normal Gait, Normal Reflexes, No Motor/Sensory Deficits Psychiatric: Normal Affect, Normal Mood Skin Exam: Warm, Dry, Intact, Normal Color, No Rash EKG INTERPRETATION EKG Date: 09/02/16 Time: 12:20 Rhythm: NSR Rate (Beats/Min): 75 [place]: Normal P-Wave: Present QRS: Other (There is near Q-wave in V1 and V2 suggestive scope of an old anteroseptal myocardial infarction. There is left ventricular hypertrophy pattern. Left atrial hypertrophy suspect. QT is mildly prolonged.) ST-T: Normal QT: Prolonged (Mildly prolonged) Course - Vital Signs Last Recorded V/S: Last Vital Signs Temp 36.1 C 09/02/16 12:16 Pulse 86 09/02/16 12:16 Resp 20 09/02/16 12:16 BP 144/105 H 09/02/16 12:16 Pulse Ox 95 09/02/16 12:16 - Orders/Labs/Meds Orders: Active Orders 24 hr Category Date Time Status EKG Documentation Completion [RC] STAT Care 09/02/16 12:15 Active Chest 2V [CR] Stat Exams 09/02/16 12:33 Taken Meds: Medications Discontinued Medications Generic Name Dose Route Start Last Admin Trade Name Freq PRN Reason Stop Dose Admin Hydromorphone HCl 0.5 mg 09/02/16 12:51 09/02/16 13:11 Dilaudid IVPUSH 09/02/16 12:52 0.5 mg ONETIME ONE Administration Sodium Chloride 1,000 mls @ 150 mls/hr 09/02/16 13:00 09/02/16 13:08 Normal Saline IV 150 mls/hr ASDIRECTED NOEMÍ Administration Ketorolac Tromethamine 30 mg 09/02/16 13:00 09/02/16 13:10 Toradol IVPUSH 30 mg ONETIME NOEMÍ Administration Ondansetron HCl 4 mg 09/02/16 12:51 09/02/16 13:09 Zofran IVPUSH 09/02/16 12:52 4 mg ONETIME ONE Administration - Radiology Interpretation Free Text/Narrative:: 40-year-old female presents to the ED with a change in her breathing pattern. She underwent pleurodesis because of a spontaneous pneumothorax on the left side is noted to have multiple large blebs on her left lung related to her underlying connective tissue disorder. She noticed gurgling respirations developing yesterday but they got worse overnight. She is mildly more short of breath than normal. She has discomfort in the left side of the chest but no pleuritic component to the pain. Denies cough or sputum production and she has no fever or chills. O2 sats are 95% on room air. This is her usual. She desaturates on exertion. On auscultation she does have a loud pleural rub on the left side. Plan ; Two view chest x-ray to be done. - Re-Assessments/Exams Free Text/Narrative Re-Assessment/Exam: 09/02/16 12:52 patient has returned from x-ray but is having increased left- sided chest pain and heaviness. Therefore IV will be started with normal saline at 150 mils per hour. We'll give her Zofran 4 mg IV Toradol 30 mg IV and Dilaudid 0.5 mg IV for pain relief. 09/02/16 13:30 chest x-ray- two-view done reveals no recurrence of pneumothorax. The previously noted infiltrate from last week in the left lung field laterally is improved about 50% of what it was. Therefore the noisy respirations or pleural rub is likely to persist for a period of time until the pleura adhered together completely. There does not appear to be any loculated effusions. Patient reassured in this regard. She is seeking pain medication. Has a prescription that has been written by Dr. Norris's office in [place] but she's not going to be able to pick it up. Not sure if it was for Dilaudid or Percocet tabs. At this time Percocet tabs should be suitable. I will write a prescription for 20 tablets of Percocet 5-325 mg strength.. Departure - Departure Time of Disposition: 13:32 Disposition: Home, Self-Care 01 Condition: Fair Clinical Impression: Left sided chest pain, Non-cardiac chest pain, Pleural friction rub - Discharge Information Prescriptions: oxyCODONE HCl/Acetaminophen [Percocet 5-325 mg Tablet] 1 - 2 each PO Q4H PRN # 24 tablet PRN Reason: pain relief. Instructions: Nonspecific Chest Pain, [id number] Referrals: Emani Mcclendon, [facility] [Primary Care Provider] - Forms: ED Department Discharge Additional Instructions: Evaluation in the emergency room today in regards to noisy respirations gurgling type on the left side of the lung field. Recent spontaneous pneumothorax due to connective tissue disorder with pleurodesis performed using talk compartment while in [place]. Dr. Jr sandoval vascular surgeon performed surgery. On examination today O2 sats were 95% on room air. Definite pleural rub appreciated in the left lung field anteriorly. Decreased air into the left lung field posteriorly appreciated. Chest x-ray however compared to last week is improved. There is only is no recurrence of pneumothorax. There is decreased infiltrate or inflammation in the left lower lung field about half as much as there was a week ago. Is no loculated collections of fluid between the pleura. Therefore overall things seem to be healing satisfactorily. Which her hearing with breathing is a pleural friction rub not uncommon after having pleurodesis procedure. Often will last for a repeat between 10 and 30 days. Pain will gradually improve as well. Your given Dilaudid 0.5 mg IV with Toradol 30 mg IV in the ED. Use Percocet 5/3/25 milligram tablets 1 or 2 every 4-6 hours for pain relief as needed. May also continue Aleve 2 tablets every 8 hours for pain and inflammation relief. Follow up with Dr. Uriarte's plan. - My Orders Last 24 Hours: My Active Orders 09/02/16 12:15 EKG Documentation Completion [RC] STAT 09/02/16 12:33 Chest 2V [CR] Stat - Assessment/Plan Last 24 Hours: My Active Orders 09/02/16 12:15 EKG Documentation Completion [RC] STAT 09/02/16 12:33 Chest 2V [CR] Stat
[2016-09-02] MEDS ORDERED: Ondansetron 4 MG/2 ML SDV IVPUSH ONE (12:51)
[2016-09-02] MEDS ORDERED: HYDROmorphone 0.5 MG/0.5 ML Syringe IVPUSH ONE (12:51)
[2016-09-02] MEDS ORDERED: Sodium Chloride 0.9% 1,000 ML IV SCH (13:00)
[2016-09-02] MEDS ORDERED: Ketorolac 30 MG/ML SDV IVPUSH SCH (13:00)
--- NOTE | 2016-09-03 08:43 | CR ---
Chest: Two views of the chest were obtained. Comparison: Previous chest x-ray of 08/24/16, 08/14/16 and chest x-ray of 08/13/16. Lucency seen above the left hemidiaphragm. This may represent an air bleb but small loculated pneumothorax is felt to be most likely as there appears to be a small amount of pleural fluid. No additional pneumothorax is seen. Atelectasis noted behind the left heart. Diffuse interstitial changes seen which is stable. Bony structures are grossly intact. Impression: 1. Small loculated hydropneumothorax believed to be present within the left lung base. This less likely represents an air bleb. 2. Slight atelectasis and stable interstitial change. Diagnostic code #5
== END 2016-09-02 14:11 | disposition home or self-care (01) ==
LOC: JD.ED 12:11
DX: R07.89 Other chest pain (principal); R09.89 Other specified symptoms and signs involving the circulatory and respiratory systems; I10 Essential (primary) hypertension; F41.9 Anxiety disorder, unspecified; Z98.890 Other specified postprocedural states; Z87.891 Personal history of nicotine dependence; Z79.899 Other long term (current) drug therapy; Z91.013 Allergy to seafood; Z87.442 Personal history of urinary calculi
CPT/HCPCS: 71020; 93005; 96361; 96374; 96375; 99285; J1170; J1885; J2405; J7040; 99284

== ENCOUNTER 2016-11-27 20:34 | Emergency (ER) | payer BC ==
[2016-11-27 20:50] VITALS: BP 138/94
[2016-11-27] MEDS ORDERED: Albuterol/Ipratropium 3.0-0.5 MG/3 ML Neb Soln NEB ONE (21:58)
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
[2016-11-27] MEDS ORDERED: predniSONE 20 MG Tab PO ONE (22:53)
[2016-11-27] MEDS ORDERED: Codeine/Promethazine 10-6.25 MG/5 ML Syrup 5 ML UD Cup PO ONE (22:54)
--- NOTE | 2016-11-29 08:58 | CR ---
Chest: Two views of the chest were obtained. Comparison: Previous chest x-ray of 09/02/16. Interstitial fibrosis is seen which is stable. Lucency is seen within both lung bases which is felt to be incidental. Heart size and mediastinum are normal. Mild disc space narrowing is scattered within thoracic spine of mild scattered endplate osteophytes and minimal scoliosis. Impression: 1. Stable interstitial change and other incidental findings. Nothing acute is appreciated. Diagnostic code #3
--- NOTE | 2016-11-29 12:16 | CT ---
CT chest Technique: Multiple axial sections through the chest were obtained. Intravenous contrast was not utilized. Comparison: Prior chest CT of 08/13/16. Findings: Diffuse cystic change throughout both sides of the lung are seen compatible with lymphangioleiomyomatosis. Slight atelectasis or scarring is noted within the left base. Lungs otherwise are clear. No pneumothorax is seen. Mediastinum and hilar regions are unremarkable. No pericardial thickening is seen. Bone window settings were reviewed which show mild disc space narrowing within the spine with scattered endplate osteophytes. Impression: 1. Diffuse cystic change compatible with lymphangioleiomyomatosis. 2. Other incidental findings. 3. Nothing acute is appreciated. Diagnostic code #3 Agree with preliminary report issued by [facility] ([facility] preliminary report dictated on 11/27/16, 11:47 PM Central Time
== END 2016-11-27 23:35 | disposition home or self-care (01) ==
LOC: JD.ED 20:34
DX: J45.901 Unspecified asthma with (acute) exacerbation (principal); I10 Essential (primary) hypertension; Z87.891 Personal history of nicotine dependence; Z86.2 Personal history of diseases of the blood and blood-forming organs and certain disorders involving the immune mechanism; Z79.899 Other long term (current) drug therapy; Z91.013 Allergy to seafood
CPT/HCPCS: 71020; 71250; 94664; 99284; A9270

== ENCOUNTER 2017-02-01 15:36 | Emergency (ER) | payer BC ==
[2017-02-01 15:48] VITALS: BP 144/99
--- NOTE | 2017-02-01 16:58 | EDM.PDOC ---
ED HPI GENERAL MEDICAL PROBLEM - General Chief Complaint: Back Pain or Injury Stated Complaint: UPPER BACK PAIN/SOB Time Seen by Provider: 02/01/17 15:46 Source of Information: Reports: Patient History Limitations: Reports: No Limitations - History of Present Illness INITIAL COMMENTS - FREE TEXT/NARRATIVE: 41-year-old female presents for evaluation and treatment of chest tightness, shortness of breath and dyspnea with exertion. Patient also complains of pain to her left side of her back in between her shoulder blades. She has a history of lymphangiomyomatosis. She currently sees pulmonology and Wenceslao at [facility]. She has had complications from this disease including a spontaneous pneumothorax in July. Consequently had a left-sided pleurodesis. She is concerned that she may have developed another pneumothorax. States she did not have any back pain previously with her pneumothorax. Location: Reports: Back Left Back Pain Score (Numeric/FACES): 7 - Related Data Allergies Allergy/AdvReac Type Severity Reaction Status Date / Time shellfish derived Allergy Rash Verified 02/01/17 15:42 Home Meds: Home Meds Dextroamphetamine/Amphetamine [Adderall 20 mg Tablet] 1 tab PO TID 04/29/16 [ History] Meloxicam 1 tab PO BEDTIME 04/29/16 [History] clonazePAM [Clonazepam] 1 tab PO BID PRN 04/29/16 [History] traMADol [Ultram] 1 tab PO QID PRN 04/29/16 [History] Ibuprofen [IJD: Ibuprofen] 600 mg PO Q4H PRN #30 tablet 04/30/16 [Rx] Sirolimus 1 mg PO DAILY 08/13/16 [History] traZODone 50 mg PO BEDTIME PRN 08/13/16 [History] Cyclobenzaprine HCl 10 mg PO BID PRN 08/14/16 [History] oxyCODONE HCl/Acetaminophen [Percocet 5-325 mg Tablet] 1 - 2 each PO Q4H PRN # 24 tablet 09/02/16 [Rx] Hydrocodone/Chlorphen P-Stirex [Tussionex Pennkinetic Susp] 5 ml PO DAILY PRN # 50 ml 11/27/16 [Rx] Nebivolol HCl [Bystolic] 10 mg PO DAILY 11/27/16 [History] Past Medical History - Past Health History Medical/Surgical History: Denies Medical/Surgical History HEENT History: Reports: Allergic Rhinitis Cardiovascular History: Reports: Hypertension, Other (See Below) Other Cardiovascular History: MCNAIR disease Respiratory History: Reports: Other (See Below) Other Respiratory History: LAMS - lymphangioleiomyomatosis, pneumothorax Gastrointestinal History: Reports: Other (See Below) Other Gastrointestinal History: liver cyst - presents with the LAMS Genitourinary History: Reports: Renal Calculus Other Genitourinary History: 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 Generalized pain from chemo drug Neurological History: Reports: None Psychiatric History: Reports: ADD, ADHD, Anxiety Endocrine/Metabolic History: Reports: None Hematologic History: Reports: Anemia, Iron Deficiency, Other (See Below) Other Hematologic History: both related to Immunologic History: Reports: Immunosuppression Other Immunologic History: on an immnosuppresent drug for the LAMS Oncologic (Cancer) History: Reports: None Other Oncologic History: LMA present - Lymphangioleiomyomatosis Dermatologic History: Reports: None - Past Surgical History Head Surgeries/Procedures: Reports: None Respiratory Surgical History: Reports: Pleurodesis, Other (See Below) Other Respiratory Surgeries/Procedures: chest tube placement Female Surgical History: Reports: Section Social & Family History - Family History Family Medical History: Noncontributory - Tobacco Use Smoking Status *Q: Never Smoker Years of Tobacco use: 2 Packs/Tins Daily: 1 Used Tobacco, but Quit: Yes Month Tobacco Last Used: 10 years ago Second Hand Smoke Exposure: No - Caffeine Use Caffeine Use: Reports: Coffee, Soda Other Caffeine Use: sometimes - Recreational Drug Use Recreational Drug Use: No - Living Situation & Occupation Living situation: Reports: , with Spouse, with Family (3 kids) Occupation: Unemployed ED ROS GENERAL - Review of Systems Review Of Systems: See Below Respiratory: Reports: Shortness of Breath Cardiovascular: Reports: Chest Pain (tightness), Dyspnea on Exertion Musculoskeletal: Reports: Back Pain (left sided in between spine and shoulder blade) Psychiatric: Reports: Anxiety ED EXAM, GENERAL - Physical Exam Exam: See Below Exam Limited By: No Limitations General Appearance: Alert, WD/WN, No Apparent Distress, Anxious Eye Exam: Bilateral Eye: Normal Inspection Ears: Normal External Exam Nose: Normal Inspection Throat/Mouth: Normal Inspection, No Airway Compromise Respiratory/Chest: No Respiratory Distress, Lungs Clear, Normal Breath Sounds, Chest Non-Tender Cardiovascular: Normal Peripheral Pulses, Regular Rate, Rhythm, No Murmur Back Exam: Normal Inspection, Paraspinal Tenderness (muscle spasm present in the left rhomboid muscle). No: Vertebral Tenderness Neurological: Alert, Oriented, Normal Cognition Psychiatric: Normal Affect, Normal Mood Skin Exam: Warm, Dry, Normal Color Course - Vital Signs Last Recorded V/S: Last Vital Signs Temp 36.1 C 02/01/17 15:45 Pulse 93 02/01/17 15:45 Resp BP 144/99 H 02/01/17 15:45 Pulse Ox 99 02/01/17 15:45 - Orders/Labs/Meds Orders: Active Orders 24 hr Category Date Time Status Chest 2V [CR] Stat Exams 02/01/17 16:16 Ordered - Radiology Interpretation Free Text/Narrative:: chest xray reviewed by myself and Dr. Reeves. No acute intrathoracic process. - Re-Assessments/Exams Free Text/Narrative Re-Assessment/Exam: 02/01/17 16:58 I reviewed the x-ray results with the patient. She was relieved that she does not have a pneumo at this time. Feels comfortable at home, has no additional concerns. Will discharge home. Departure - Departure Time of Disposition: 16:59 Disposition: Home, Self-Care 01 Condition: Good Clinical Impression: Muscle spasm of back - Discharge Information Instructions: Muscle Cramps and Spasms, [id number] Referrals: Emani Mcclendon, ASSISTANT PROFESSOR OF PHYSICS [Primary Care Provider] - Forms: ED Department Discharge Additional Instructions: Recommending using heat to the sore area in your back. Continue with your pain medications as needed for discomfort. Follow-up with your primary care provider if your symptoms are not much better within 1 week. Please return to the ER if your symptoms change or worsen. - My Orders Last 24 Hours: My Active Orders 02/01/17 16:16 Chest 2V [CR] Stat - Assessment/Plan Last 24 Hours: My Active Orders 02/01/17 16:16 Chest 2V [CR] Stat
--- NOTE | 2017-02-02 06:56 | CR ---
Chest: Two views of the chest were obtained. Comparison: Prior chest CT of 11/27/16 and chest x-ray of 11/27/16. Lung markings are diffusely increased most of which appear to be chronic. Difficult to exclude mild superimposed bronchitis if patient has any infectious symptoms. Lungs otherwise are clear. Heart size and mediastinum are normal. Lungs are hyperinflated. Cystic change that was seen on CT study is poorly appreciated within the lungs on plain film exam. Bony structures appear within normal limits for the patient's age. Impression: 1. Lung markings are increased most of which appear chronic but difficult to exclude superimposed bronchitis if patient has infectious symptoms. 2. Other portions of the chest are stable from previous exams. Diagnostic code #3
== END 2017-02-01 17:18 | disposition home or self-care (01) ==
LOC: JD.ED 15:36
DX: M62.830 Muscle spasm of back (principal); Z79.899 Other long term (current) drug therapy; Z91.013 Allergy to seafood
CPT/HCPCS: 71020; 71020-26; 99283

== ENCOUNTER 2017-06-01 15:32 | Emergency (ER) | payer BC ==
[2017-06-01 15:43] VITALS: BP 156/117
--- NOTE | 2017-06-01 16:14 | EDM.PDOC ---
ED HPI GENERAL MEDICAL PROBLEM - General Chief Complaint: Respiratory Problem Stated Complaint: CHEST CONGESTION CHEST PAIN WHEN COUGHING Time Seen by Provider: 06/01/17 15:56 Source of Information: Reports: Patient History Limitations: Reports: No Limitations - History of Present Illness INITIAL COMMENTS - FREE TEXT/NARRATIVE: patient is a 41-year-old female with a history of MCNAIR disease who presents ED complaining of worsening productive cough with chest congestion for the past few days. Patient states kids have been sick with flu like symptoms. Over the past few days patient has been having a difficult time sleeping. She's been in contact with Dr. Oliva her produce team lead and prescribed Robitussin with codeine with minimal relief. She spoke to Dr. Oliva today and was placed on Omnicef and prednisone. She took one dose of the Omnicef. She's been coughing up some thickened mucous that is starting to thin out. She does have a history of pneumonia and also spontaneous pneumothorax requiring pleurodesis with talc. This occurred last July. 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 She's been dealing with this for the past [address] Oliva produce team lead was concerned about pneumonia and thus suggested come to the ED for chest x-ray. Patient's also wishing for influenza screening as well. Patient does have some sinus congestion, mild sore throat with coughing, ear congestion, with no recent documented fever. she denies being . She has been eating and drinking well. MCNAIR is an indolent progressive growth a smooth muscle cells throughout the lungs , pulmonary blood vessels, lymphatics, and pleura. It is rare increase exclusively young women. Chest Pain Score (Numeric/FACES): 5 - Related Data Allergies Allergy/AdvReac Type Severity Reaction Status Date / Time shellfish derived Allergy Rash Verified 06/01/17 15:43 Home Meds: Home Meds Dextroamphetamine/Amphetamine [Adderall 20 mg Tablet] 1 tab PO TID 04/29/16 [ History] clonazePAM [Clonazepam] 1 tab PO BID PRN 04/29/16 [History] traMADol [Ultram] 1 tab PO QID PRN 04/29/16 [History] Ibuprofen [IJD: Ibuprofen] 600 mg PO Q4H PRN #30 tablet 04/30/16 [Rx] Sirolimus 1 mg PO DAILY 08/13/16 [History] Cyclobenzaprine HCl 10 mg PO BID PRN 08/14/16 [History] oxyCODONE HCl/Acetaminophen [Percocet 5-325 mg Tablet] 1 - 2 each PO Q4H PRN # 24 tablet 09/02/16 [Rx] Nebivolol HCl [Bystolic] 10 mg PO DAILY 11/27/16 [History] Past Medical History - Past Health History Medical/Surgical History: Denies Medical/Surgical History HEENT History: Reports: Allergic Rhinitis Cardiovascular History: Reports: Hypertension, Other (See Below) Other Cardiovascular History: MCNAIR disease Respiratory History: Reports: Other (See Below) Other Respiratory History: LAMS - lymphangioleiomyomatosis, pneumothorax Gastrointestinal History: Reports: Other (See Below) Other Gastrointestinal History: liver cyst - presents with the LAMS Genitourinary History: Reports: Renal Calculus Other Genitourinary History: 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 Generalized pain from chemo drug Neurological History: Reports: None Psychiatric History: Reports: ADD, ADHD, Anxiety Endocrine/Metabolic History: Reports: None Hematologic History: Reports: Anemia, Iron Deficiency, Other (See Below) Other Hematologic History: both related to Immunologic History: Reports: Immunosuppression Other Immunologic History: on an immnosuppresent drug for the LAMS Oncologic (Cancer) History: Reports: None Other Oncologic History: LMA present - Lymphangioleiomyomatosis Dermatologic History: Reports: None - Past Surgical History Head Surgeries/Procedures: Reports: None Respiratory Surgical History: Reports: Pleurodesis, Other (See Below) Other Respiratory Surgeries/Procedures: chest tube placement Female Surgical History: Reports: Section Social & Family History - Family History Family Medical History: Noncontributory - Tobacco Use Smoking Status *Q: Never Smoker Years of Tobacco use: 2 Packs/Tins Daily: 1 Used Tobacco, but Quit: Yes Month/Year Tobacco Last Used: 10 years ago Second Hand Smoke Exposure: No - Caffeine Use Caffeine Use: Reports: None Other Caffeine Use: sometimes - Recreational Drug Use Recreational Drug Use: No - Living Situation & Occupation Living situation: Reports: , with Spouse, with Family (3 kids) Occupation: Unemployed ED ROS GENERAL - Review of Systems Review Of Systems: ROS reveals no pertinent complaints other than HPI. ED EXAM, GENERAL - Physical Exam Exam: See Below Exam Limited By: No Limitations General Appearance: Alert, WD/WN, No Apparent Distress Ears: Normal External Exam, Normal Canal, Hearing Grossly Normal, Normal TMs Nose: Normal Inspection Throat/Mouth: Normal Inspection, Normal Oropharynx, Normal Voice, No Airway Compromise Head: Atraumatic, Normocephalic Neck: Normal Inspection, Supple, Non-Tender, Full Range of Motion Respiratory/Chest: No Respiratory Distress, Lungs Clear, Normal Breath Sounds, No Accessory Muscle Use, Chest Non-Tender Cardiovascular: Normal Peripheral Pulses, Regular Rate, Rhythm (99) Peripheral Pulses: 4+: Radial (R) GI/Abdominal: Normal Bowel Sounds, Soft, Non-Tender, No Organomegaly, No Distention Extremities: Normal Inspection, Non-Tender, No Pedal Edema, Normal Capillary Refill Neurological: Alert, Oriented, CN II-XII Intact, Normal Cognition, No Motor/ Sensory Deficits Psychiatric: Normal Affect, Normal Mood Skin Exam: Warm, Dry, Intact, Normal Color Course - Vital Signs Last Recorded V/S: Last Vital Signs Temp 99.9 F 06/01/17 15:38 Pulse 100 06/01/17 15:38 Resp 18 06/01/17 15:38 BP 156/117 H 06/01/17 15:38 Pulse Ox - Orders/Labs/Meds Labs: Laboratory Tests 06/01/17 06/01/17 Range/Units 16:32 16:32 WBC 4.48 (3.98-10.04) K/mm3 RBC 4.74 (3.98-5.22) M/mm3 Hgb 13.8 (11.2-15.7) gm/L Hct 40.6 (34.1-44.9) % MCV 85.7 (79.4-94.8) fl MCH 29.1 (25.6-32.2) pg MCHC 34.0 (32.2-35.5) g/dl RDW Std Deviation 43.1 (36.4-46.3) fL Plt Count 277 (182-369) K/mm3 MPV 8.5 L (9.4-12.3) fl Neutrophils % (Manual) 54 (40-60) % Band Neutrophils % 0 (0-10) % Lymphocytes % (Manual) 30 (20-40) % Atypical Lymphs % 0 % Monocytes % (Manual) 12 H (2-10) % Eosinophils % (Manual) 3 (0.7-5.8) % Basophils % (Manual) 1 (0.1-1.2) Platelet Estimate Adequate RBC Morph Comment Normal Sodium 135 L (136-145) mEq/L Potassium 3.5 (3.5-5.1) mEq/L Chloride 99 (98-107) mEq/L Carbon Dioxide 24 (21-32) mEq/L Anion Gap 15.5 H (5-15) BUN 10 (7-18) mg/dL Creatinine 0.7 (0.55-1.02) mg/dL Est Cr Clr Drug Dosing 103.89 mL/min Estimated GFR (MDRD) > 60 (>60) mL/min BUN/Creatinine Ratio 14.3 (14-18) Glucose 109 H (74-106) mg/dL Calcium 8.8 (8.5-10.1) mg/dL Total Bilirubin 0.2 (0.2-1.0) mg/dL AST 47 H (15-37) U/L ALT 167 H (14-59) U/L Alkaline Phosphatase 102 (46-116) U/L C-Reactive Protein 6.6 H* (<1.0) mg/dL Total Protein 7.5 (6.4-8.2) g/dl Albumin 3.5 (3.4-5.0) g/dl Globulin 4.0 gm/dL Albumin/Globulin Ratio 0.9 L (1-2) Meds: Medications Discontinued Medications Generic Name Dose Route Start Last Admin Trade Name Freq PRN Reason Stop Dose Admin Clonazepam 0.5 mg 06/01/17 16:19 06/01/17 16:27 Klonopin PO 06/01/17 16:20 0.5 mg ONETIME ONE Administration Guaifenesin 600 mg 06/01/17 17:23 06/01/17 17:42 Mucinex PO 06/01/17 17:24 600 mg ONETIME ONE Administration - Re-Assessments/Exams Free Text/Narrative Re-Assessment/Exam: Influenza screen and also chest x-ray obtained. Will hold off on labs at this point. Patient's had no documented fever and is eating and drinking well. Patient is feeling anxious requesting something for the anxiety. Patient takes clonazepam at home. Ordered clonazepam 0.5 mg PO. Influenza screen B screen was positive. patient's out of the 48 hour window for Tamiflu. Chest x-ray final impression: Lungs are hyperinflated. Findings are similar to prior exam. Increasing interstitial change from previous exam. Findings could represent worsening pulmonary fibrosis as well as fibrosis superimposed upon acute bronchitis. Labs reviewed: CBC essentially normal, differential is pending. Sodium 135, potassium 3.5, cr 0.7, glucose 109, AST and ALT are mildly elevated, CRP 6.6. Manual differential reviewed with no concerns. Will start the patient on Mucinex 600 mg while in the ED. Patient has albuterol neb treatments at home. Will continue on the Omnicef as prescribed along with the prednisone. Will have her contact her produce team lead to discuss recent findings of influenza and determine treatment plan thereafter. Departure - Departure Time of Disposition: 17:24 Disposition: Home, Self-Care 01 Condition: Good Clinical Impression: Influenza, Lymphangiomyomatosis - Discharge Information Instructions: Shortness of Breath, Adult, [id number], Influenza, Adult, Upper Respiratory Infection, Adult, [id number] Referrals: Emani Mcclendon NP [Primary Care Provider] - Bailey Oliva MD [Ordering Only Provider] - Forms: ED Department Discharge Additional Instructions: As discussed you have influenza B. you are out of the 48 hour window for treatment with Tamiflu. Treatment at this point will be symptomatic care including: Albuterol neb treatments every 4 hours as needed for wheezing and coughing along with shortness of breath. Mucinex 600 mg twice a day, Tylenol and ibuprofen in alternating fashion for body aches and fever. Continue taking the Omnicef and prednisone as prescribed by your produce team lead. Contact your produce team lead tomorrow to advise that you have influenza and see if any modification to treatment will be started at that time. Refrain from contact with the extremely younger old or immunocompromised. Return to ED if you develop any new or worsening symptoms.
[2017-06-01] MEDS ORDERED: ClonazePAM 0.5 MG Tab PO ONE (16:19)
--- NOTE | 2017-06-01 16:42 | CR ---
Chest: 2 views of the chest were obtained. Comparison: Prior chest x-ray of 02/01/17. Increasing interstitial change is noted from prior exam. Lungs are hyperinflated. Heart size and mediastinum are normal. Scattered disc space narrowing is noted throughout the thoracic spine. Impression: 1. Lungs are hyperinflated. Findings are similar to prior exam. 2. Increasing interstitial change from previous exam. Findings could represent worsening pulmonary fibrosis as well as fibrosis superimposed upon acute bronchitis. 3. Other incidental findings. Diagnostic code #3
[2017-06-01] MEDS ORDERED: guaiFENesin 600 MG Tab.ER PO ONE (17:23)
== END 2017-06-01 17:40 | disposition home or self-care (01) ==
LOC: JD.ED 15:32
DX: J11.1 Influenza due to unidentified influenza virus with other respiratory manifestations (principal); J84.81 Lymphangioleiomyomatosis; I10 Essential (primary) hypertension; Z79.899 Other long term (current) drug therapy; Z91.013 Allergy to seafood; Z87.891 Personal history of nicotine dependence
CPT/HCPCS: 36415; 71046; 80053; 85025; 86140; 87804; 99284; A9270; 99283

== ENCOUNTER 2017-07-26 15:38 | Emergency (ER) | payer BC ==
[2017-07-26 15:47] VITALS: BP 158/99
--- NOTE | 2017-07-26 16:35 | EDM.PDOC ---
ED HPI GENERAL MEDICAL PROBLEM - General Chief Complaint: Respiratory Problem Stated Complaint: SOB Time Seen by Provider: 07/26/17 16:06 Source of Information: Reports: Patient History Limitations: Reports: No Limitations - History of Present Illness INITIAL COMMENTS - FREE TEXT/NARRATIVE: Patient is a 41 year old female with history of MCNAIR's Disease presents to the E.D. complaining of SOB that has resolved with admission to the E.D. States over the past two days has been experiencing increased SOB. Has utilized albuterol neb tx x 2 yesterday and 3 times daily due to shortness of breath. She is concerned she has a pneumothorax. Patient has a history of spontaneous pneumothorax with similar symptoms. Although she does not have any chest pain. Pneumothorax requred pleurodesis one year ago. She sees Dr. Oliva Pul[facility]ologists at [facility] every three months for routine monitoring. Patient has not been on any new medications as of recent. She denies CP, SOB, N/V, Fever, Sinus congestion, sore throat, abdominal pain, or any additional complaints. Patient denies any recent sick exposures. 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 Current medications inc Adderall, clonazepam, tramadol, ibuprofen,sirolimus, cyclobenzaprine, Percocet, and bystolic. - Related Data Allergies Allergy/AdvReac Type Severity Reaction Status Date / Time shellfish derived Allergy Rash Verified 07/28/17 11:47 Home Meds: Home Meds Dextroamphetamine/Amphetamine [Adderall 20 mg Tablet] 1 tab PO TID 04/29/16 [ History] clonazePAM [Clonazepam] 1 tab PO BID PRN 04/29/16 [History] traMADol [Ultram] 2 tab PO QID PRN 04/29/16 [History] Ibuprofen [IJD: Ibuprofen] 600 mg PO Q4H PRN #30 tablet 04/30/16 [Rx] Sirolimus 1 mg PO DAILY 08/13/16 [History] Cyclobenzaprine HCl 10 mg PO BID PRN 08/14/16 [History] oxyCODONE HCl/Acetaminophen [Percocet 5-325 mg Tablet] 1 - 2 each PO Q4H PRN # 24 tablet 09/02/16 [Rx] Metoprolol Succinate 100 mg PO DAILY 07/26/17 [History] Past Medical History - Past Health History Medical/Surgical History: Denies Medical/Surgical History HEENT History: Reports: Allergic Rhinitis Cardiovascular History: Reports: Hypertension, Other (See Below) Other Cardiovascular History: MCNAIR disease Respiratory History: Reports: Other (See Below) Other Respiratory History: LAMS - lymphangioleiomyomatosis, pneumothorax Gastrointestinal History: Reports: Other (See Below) Other Gastrointestinal History: liver cyst - presents with the LAMS Genitourinary History: Reports: Renal Calculus 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 Generalized pain from chemo drug Neurological History: Reports: None Psychiatric History: Reports: ADD, ADHD, Anxiety Endocrine/Metabolic History: Reports: None Hematologic History: Reports: Anemia, Iron Deficiency, Other (See Below) Other Hematologic History: both related to Immunologic History: Reports: Immunosuppression Other Immunologic History: on an immnosuppresent drug for the LAMS Oncologic (Cancer) History: Reports: None Other Oncologic History: LMA present - Lymphangioleiomyomatosis Dermatologic History: Reports: None - Past Surgical History Head Surgeries/Procedures: Reports: None Respiratory Surgical History: Reports: Pleurodesis, Other (See Below) Other Respiratory Surgeries/Procedures: chest tube placement Female Surgical History: Reports: Section Social & Family History - Family History Family Medical History: Noncontributory - Caffeine Use Caffeine Use: Reports: None Other Caffeine Use: sometimes - Living Situation & Occupation Living situation: Reports: , with Spouse, with Family (3 kids) Occupation: Unemployed ED ROS GENERAL - Review of Systems Review Of Systems: ROS reveals no pertinent complaints other than HPI. ED EXAM, GENERAL - Physical Exam Exam: See Below Exam Limited By: No Limitations General Appearance: Alert, WD/WN, No Apparent Distress, Other (Patient is able to speak in full sentences with no shortness of breath. She is not coughing. Vital signs are stable. She is not tachycardic.) Ears: Hearing Grossly Normal Nose: Normal Inspection Throat/Mouth: Normal Inspection, Normal Oropharynx, Normal Voice, No Airway Compromise Head: Atraumatic, Normocephalic Neck: Normal Inspection, Supple Respiratory/Chest: No Respiratory Distress, Lungs Clear, Normal Breath Sounds, No Accessory Muscle Use, Chest Non-Tender Cardiovascular: Normal Peripheral Pulses, Regular Rate, Rhythm, No Murmur Peripheral Pulses: 4+: Radial (L) GI/Abdominal: Normal Bowel Sounds, Soft, Non-Tender, No Organomegaly, No Distention Neurological: Alert, Oriented, CN II-XII Intact, Normal Cognition, No Motor/ Sensory Deficits Psychiatric: Normal Affect, Normal Mood Skin Exam: Warm, Dry, Intact, Normal Color Course - Vital Signs Last Recorded V/S: Last Vital Signs Temp 98.5 F 07/26/17 15:44 Pulse 90 07/26/17 15:44 Resp 22 H 07/26/17 15:44 BP 158/99 H 07/26/17 15:44 Pulse Ox 96 07/26/17 15:44 - Re-Assessments/Exams Free Text/Narrative Re-Assessment/Exam: Patient is requesting a chest x-ray. No additional labs will be ordered. Patient 's lung sounds are clear. She is speaking in full sentences with no signs of shortness of breath. Her vital signs are stable. All symptoms have completely resolved per patient with admission to the ED. She states she is not short of breath. 07/26/17 17:02 Reviewed x-ray with Dr. Flynn.No acute findings noted. Final interpretation pending. Discussed cxr with the patient. Continues to state she has no symptoms. Advised her to speak with Dr. Oliva tomorrow. 1710 Nursing staff has brought to my attention patient wants something for her cough. I spoke with the patient. She has a intermittent cough at HS. Requests something with codeine in it. I advised her to take a percocet later in the evening. This will decrease cough as well. She agrees with plan. Discharge instructions as documented. Departure - Departure Time of Disposition: 17:11 Disposition: Home, Self-Care 01 Condition: Good Clinical Impression: Lymphangiomyomatosis, Cough - Discharge Information Instructions: Cough, Adult Referrals: Emani Mcclendon, [employer] [Primary Care Provider] - Forms: ED Department Discharge Additional Instructions: All symptoms have resolved with admission to the ED. Continue taking all your home medications as prescribed. Contact your solar installation manager tomorrow morning to keep her updated with recent events. Return to the ED if you develop any new or worsening symptoms.
--- NOTE | 2017-07-28 10:21 | CR ---
Addendum: Previous chest x-ray was reviewed which shows a small right apical pneumothorax. This was not mentioned on original report. --- Addendum1 above dictated on [07/28/2017 14:35] by [Jadyn Bolden, Daniel Galeas] --- --- Addendum1 above signed on [07/28/2017 14:37] by [Jadyn Bolden Hilton J.] --- --- Original report below dictated on [07/28/2017 08:19] by [Jadyn Bolden, Daniel Galeas] --- --- Original report below signed on [07/28/2017 10:16] by [Jadyn Bolden, Daniel Galeas] --- Chest: Frontal view of the chest was obtained. Comparison: Prior chest x-ray of 06/01/17. Heart size and mediastinum are normal. Lungs are hyperinflated compatible with emphysematous change. Interstitial change is noted which appears slightly less prominent than on prior exam with findings now appearing to return to baseline fibrosis. No acute pulmonary densities are seen. Impression: 1. Emphysematous change and interstitial fibrosis. Findings which are felt to be baseline. Nothing acute is definitely appreciated. Diagnostic code #3 --- Addendum1 signed ---
== END 2017-07-26 17:17 | disposition home or self-care (01) ==
LOC: JD.ED 15:38
DX: J84.81 Lymphangioleiomyomatosis (principal); Z91.013 Allergy to seafood
CPT/HCPCS: 71045; 71045-26; 99285

== ENCOUNTER 2017-07-28 11:40 | Inpatient (IN) | payer BC ==
[2017-07-28] MEDS ORDERED: Sodium Chloride 0.9% 1,000 ML IV SCH (12:00)
--- NOTE | 2017-07-28 12:03 | EDM.PDOC ---
ED HPI GENERAL MEDICAL PROBLEM - General Chief Complaint: Respiratory Problem Stated Complaint: [facility] Time Seen by Provider: 07/28/17 11:58 Source of Information: Reports: Patient History Limitations: Reports: Respiratory Distress (She is working hard to breathe.) - History of Present Illness INITIAL COMMENTS - FREE TEXT/NARRATIVE: 41-year-old female presents to the ED per ambulance. Patient has developed gradually worsening dyspnea over the last 5 days. Occasional pleuritic chest pain on the right side. Tuesday and apparently a chest x-ray was carried out and was normal. Has had previous left-sided pneumothorax requiring pleurodesis. 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 She is thus prone to developing pneumothoraces. O2 sats at paramedics examination was 87-88% at home. She was hyperventilating is working hard to breathe. Denies fever or chills or cough. Just feels short of breath. Paramedics placed on 2 L/ m by nasal cannula which gave her O2 sats in the 9798 percentile. We reduced it to 1 L/m by nasal cannula and she remains at 95-96%. Onset: Gradual Onset Date: 07/24/17 Duration: Day(s):, Getting Worse Location: Reports: Chest (Dyspnea.) Quality: Reports: Other (Occasional mild pleuritic right-sided chest pains.) Severity: Moderate Improves with: Reports: None, Other (Oxygen by nasal cannula.) Worsens with: Reports: Movement (Dyspnea worsens on exertion.) Context: Denies: Activity, Exercise, Lifting, Sick Contact, Trauma, Other Associated Symptoms: Reports: Chest Pain, Malaise, Shortness of Breath. Denies : No Other Symptoms, Confusion, Cough, cough w sputum, Diaphoresis, Fever/ Chills (Occasional intermittent short-lived. 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: Other (see below) - Related Data Allergies Allergy/AdvReac Type Severity Reaction Status Date / Time shellfish derived Allergy Rash Verified 07/28/17 11:47 Home Meds: Home Meds Dextroamphetamine/Amphetamine [Adderall 20 mg Tablet] 1 tab PO TID 04/29/16 [ History] clonazePAM [Clonazepam] 1 tab PO BID PRN 04/29/16 [History] traMADol [Ultram] 2 tab PO QID PRN 04/29/16 [History] Ibuprofen [IJD: Ibuprofen] 600 mg PO Q4H PRN #30 tablet 04/30/16 [Rx] Sirolimus 1 mg PO DAILY 08/13/16 [History] Cyclobenzaprine HCl 10 mg PO BID PRN 08/14/16 [History] oxyCODONE HCl/Acetaminophen [Percocet 5-325 mg Tablet] 1 - 2 each PO Q4H PRN # 24 tablet 09/02/16 [Rx] Metoprolol Succinate 50 mg PO DAILY 07/26/17 [History] Past Medical History - Past Health History Medical/Surgical History: Denies Medical/Surgical History HEENT History: Reports: Allergic Rhinitis Cardiovascular History: Reports: Hypertension, Other (See Below) Other Cardiovascular History: MCNAIR disease Respiratory History: Reports: Other (See Below) Other Respiratory History: LAMS - lymphangioleiomyomatosis, pneumothorax Gastrointestinal History: Reports: Other (See Below) Other Gastrointestinal History: liver cyst - presents with the LAMS Genitourinary History: Reports: Renal Calculus Other Genitourinary History: 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 Generalized pain from chemo drug Neurological History: Reports: None Psychiatric History: Reports: ADD, ADHD, Anxiety Endocrine/Metabolic History: Reports: None Hematologic History: Reports: Anemia, Iron Deficiency, Other (See Below) Other Hematologic History: both related to Immunologic History: Reports: Immunosuppression Other Immunologic History: on an immnosuppresent drug for the LAMS Oncologic (Cancer) History: Reports: None Other Oncologic History: LMA present - Lymphangioleiomyomatosis Dermatologic History: Reports: None - Past Surgical History Head Surgeries/Procedures: Reports: None Respiratory Surgical History: Reports: Pleurodesis, Other (See Below) Other Respiratory Surgeries/Procedures: chest tube placement Female Surgical History: Reports: Section Social & Family History - Family History Family Medical History: Noncontributory - Tobacco Use Smoking Status *Q: Former Smoker Used Tobacco, but Quit: No - Caffeine Use Caffeine Use: Reports: None Other Caffeine Use: sometimes - Recreational Drug Use Recreational Drug Use: No - Living Situation & Occupation Living situation: Reports: , with Spouse, with Family (3 kids) Occupation: Unemployed ED ROS GENERAL - Review of Systems Review Of Systems: See Below Constitutional: Reports: Weakness, Fatigue. Denies: Fever, Chills, Malaise, Decreased Appetite, Weight Loss HEENT: Reports: No Symptoms Respiratory: Reports: Shortness of Breath, Wheezing (Occasional wheezing), Pleuritic Chest Pain (Occasional short-lived pleuritic right-sided chest pains) , Other (Very short of breath gradually worsening over the last 5 days). Denies : Cough, Sputum, Hemoptysis Cardiovascular: Reports: Dyspnea on Exertion. Denies: Chest Pain, Blood Pressure Problem (No known to be hypertensive but is hypertensive at time of evaluation with BP 150/115. She is quite anxious.), Claudication, Edema, Lightheadedness, Palpitations Endocrine: Reports: No Symptoms GI/Abdominal: Reports: No Symptoms : Reports: No Symptoms Musculoskeletal: Reports: No Symptoms Skin: Reports: No Symptoms Neurological: Reports: No Symptoms Psychiatric: Reports: No Symptoms Hematologic/Lymphatic: Reports: No Symptoms Immunologic: Reports: No Symptoms ED EXAM, GENERAL - Physical Exam Exam: See Below Exam Limited By: Respiratory Distress (Mild to moderate respiratory distress site At 22-24/m. Hypoxia on room air at 80) General Appearance: Alert (Mild to moderate respiratory distress site At 22-24/ m. Hypoxia on room air at 86-88% improved to 9596% on 1 L of oxygen per nasal cannula.), WD/WN, Anxious (Moderately anxious.), Mild Distress (Anxiety and working hard to breathe.) Eye Exam: Bilateral Eye: Normal Inspection Throat/Mouth: Normal Inspection, Normal Lips, Normal Teeth, Normal Gums, Other ( Trachea is midline.). No: Dysphagia Neck: Normal Inspection, Supple, Non-Tender, Full Range of Motion, Other. No: Carotid Bruit, Lymphadenopathy (L), Lymphadenopathy (R), Thyromegaly (Storden is midline.) Respiratory/Chest: Respiratory Distress (Mild to moderate tachypnea 22-26/m with hypoxia. Room air is 88% 95-96% on 1 L/m by nasal cannula.), Decreased Breath Sounds (Markedly decreased breath sounds to the entire right lung field.) . No: Rales, Rhonchi, Wheezing (No adventitial sounds are identified) Cardiovascular: Normal Peripheral Pulses, Regular Rate, Rhythm, No Edema, No Gallop, No Murmur Peripheral Pulses: 3+: Posterior Tibial (L), Posterior Tibial (R), Dorsalis Pedis (L), Dorsalis Pedis (R) GI/Abdominal: Normal Bowel Sounds, Soft, Non-Tender, No Organomegaly Back Exam: Normal Inspection, Full Range of Motion. No: CVA Tenderness (L), CVA Tenderness (R) Extremities: Normal Inspection, Normal Range of Motion, Non-Tender, No Pedal Edema Neurological: Alert, Oriented, CN II-XII Intact, Normal Cognition Psychiatric: Anxious (Moderately anxious. Hyperventilating.) Skin Exam: Warm, Dry, Intact, Normal Color, No Rash Course - Vital Signs Last Recorded V/S: Last Vital Signs Temp 36.5 C 07/28/17 12:55 Pulse 84 07/28/17 12:55 Resp 22 H 07/28/17 12:55 BP 150/115 H 07/28/17 12:55 Pulse Ox 97 07/28/17 12:55 - Orders/Labs/Meds Orders: Active Orders 24 hr Category Date Time Status Sodium Chloride 0.9% [Normal Saline] 100 ml Med 07/28/17 12:15 Active IV ASDIRECTED Medication Orders Acetaminophen (Tylenol) 650 mg PO Q6H PRN PRN Reason: Pain (mild 1-3) Clonazepam (Klonopin) 0.5 mg PO BID PRN PRN Reason: Anxiety Cyclobenzaprine HCl (Flexeril) 10 mg PO BID PRN PRN Reason: Pain Fentanyl (Sublimaze) 25 mcg IVPUSH Q1H PRN PRN Reason: Pain (severe 7-10) Stop: 07/29/17 13:54 Sodium Chloride (Normal Saline) 100 mls @ 60 mls/hr IV ASDIRECTED NOEMÍ Last Admin: 07/28/17 12:25 Dose: 60 mls/hr Ibuprofen (Motrin) 600 mg PO Q4H PRN PRN Reason: Pain Ketorolac Tromethamine (Toradol) 15 mg IVPUSH Q6H PRN PRN Reason: Pain Oxycodone/Acetaminophen (Percocet 325-5 Mg) 1 - 2 tab PO Q4H PRN PRN Reason: pain relief. Dextroamphetamine/Amphetamine [ Adderall 20 Mg Tablet] 1 T 0 each PO TID NOEMÍ Sirolimus [Sirolimus (] 1 Mg) 0 each PO DAILY NOEMÍ Sodium Chloride (Saline Flush) 10 ml FLUSH ASDIRECTED PRN PRN Reason: Keep Vein Open Tramadol HCl (Ultram) 100 mg PO QID PRN PRN Reason: Pain Labs: Laboratory Tests 07/28/17 07/28/17 07/28/17 Range/Units 12:35 12:35 12:35 WBC 11.43 H (3.98-10.04) K/mm3 RBC 5.16 (3.98-5.22) M/mm3 Hgb 14.8 (11.2-15.7) gm/L Hct 44.3 (34.1-44.9) % MCV 85.9 (79.4-94.8) fl MCH 28.7 (25.6-32.2) pg MCHC 33.4 (32.2-35.5) g/dl RDW Std Deviation 45.1 (36.4-46.3) fL Plt Count 353 (182-369) K/mm3 MPV 8.7 L (9.4-12.3) fl Neutrophils % (Manual) 77 H (40-60) % Band Neutrophils % 1 (0-10) % Lymphocytes % (Manual) 19 L (20-40) % Atypical Lymphs % 0 % Immat Monocytes % (Man) 0 Monocytes % (Manual) 3 (2-10) % Eosinophils % (Manual) 0 L (0.7-5.8) % Basophils % (Manual) 0 L (0.1-1.2) Metamyelocytes % 0 Myelocytes % 0 Promyelocytes % 0 Blast Cells % 0 Plasma Cell % (Manual) 0 Nucleated RBCs 0.0 % Platelet Estimate Adequate RBC Morph Comment Normal D-Dimer, Quantitative 0.36 (0.19-0.50) mg/L Sodium 139 (136-145) mEq/L Potassium 3.9 (3.5-5.1) mEq/L Chloride 103 (98-107) mEq/L Carbon Dioxide 25 (21-32) mEq/L Anion Gap 14.9 (5-15) BUN 11 (7-18) mg/dL Creatinine 0.8 (0.55-1.02) mg/dL Est Cr Clr Drug Dosing 90.90 mL/min Estimated GFR (MDRD) > 60 (>60) mL/min BUN/Creatinine Ratio 13.8 L (14-18) Glucose 102 (74-106) mg/dL Calcium 9.1 (8.5-10.1) mg/dL Total Bilirubin 0.3 (0.2-1.0) mg/dL AST 31 (15-37) U/L ALT 39 (14-59) U/L Alkaline Phosphatase 64 (46-116) U/L Total Protein 7.6 (6.4-8.2) g/dl Albumin 3.9 (3.4-5.0) g/dl Globulin 3.7 gm/dL Albumin/Globulin Ratio 1.1 (1-2) Meds: Medications Generic Name Dose Route Start Last Admin Trade Name Freq PRN Reason Stop Dose Admin Acetaminophen 650 mg 07/28/17 13:51 Tylenol PO Q6H PRN Pain (mild 1-3) Clonazepam 0.5 mg 07/28/17 13:56 Klonopin PO BID PRN Anxiety Cyclobenzaprine HCl 10 mg 07/28/17 13:56 Flexeril PO BID PRN Pain Fentanyl 25 mcg 07/28/17 13:51 Sublimaze IVPUSH 07/29/17 13:54 Q1H PRN Pain (severe 7-10) Sodium Chloride 100 mls @ 60 mls/hr 07/28/17 12:15 07/28/17 12:25 Normal Saline IV 60 mls/hr ASDIRECTED NOEMÍ Administration Ibuprofen 600 mg 07/28/17 13:56 Motrin PO Q4H PRN Pain Ketorolac Tromethamine 15 mg 07/28/17 13:51 Toradol IVPUSH Q6H PRN Pain Oxycodone/Acetaminophen 1 - 2 tab 07/28/17 13:56 Percocet 325-5 Mg PO Q4H PRN pain relief. Dextroamphetamine/ 0 each 07/28/17 15:00 Amphetamine [ PO Adderall 20 Mg TID NOEMÍ Tablet] 1 T Sirolimus [Sirolimus 0 each 07/29/17 09:00 ] 1 Mg PO DAILY NOEMÍ Sodium Chloride 10 ml 07/28/17 13:51 Saline Flush FLUSH ASDIRECTED PRN Keep Vein Open Tramadol HCl 100 mg 07/28/17 13:56 Ultram PO QID PRN Pain Discontinued Medications Generic Name Dose Route Start Last Admin Trade Name Araceli PRN Reason Stop Dose Admin Fentanyl Confirm 07/28/17 13:50 Sublimaze Administered 07/28/17 13:51 Dose 100 mcg .ROUTE .STK-MED ONE Sodium Chloride 1,000 mls @ 100 mls/hr 07/28/17 12:00 07/28/17 12:23 Normal Saline IV 100 mls/hr ASDIRECTED NOEMÍ Administration Lidocaine HCl Confirm 07/28/17 13:02 Xylocaine-Mpf 1% Administered 07/28/17 13:03 Dose 4 mls @ as directed .ROUTE .STK-MED ONE Iopamidol 100 ml 07/28/17 12:05 07/28/17 12:25 Isovue-370 (76%) IVPUSH 07/28/17 12:06 100 ml ONETIME ONE Administration Ketamine HCl Confirm 07/28/17 13:02 Ketalar Administered 07/28/17 13:03 Dose 500 mg .ROUTE .STK-MED ONE Midazolam HCl Confirm 07/28/17 13:01 Versed 1 Mg/Ml Administered 07/28/17 13:02 Dose 2 mg .ROUTE .STK-MED ONE Propofol Confirm 07/28/17 13:01 Diprivan 20 Ml Administered 07/28/17 13:02 Dose 200 mg .ROUTE .STK-MED ONE Sodium Chloride 10 ml 07/28/17 12:05 07/28/17 12:23 Saline Flush FLUSH 07/28/17 12:06 10 ml ONETIME ONE Administration - Radiology Interpretation Free Text/Narrative:: 41-year-old female with a history of lymphangioleiomyomatosis( MCNAIR`s disease) presents once again to the hospital because of increasing dyspnea and identified hypoxemia at home. Patient is prone to spontaneous pneumothoraces and have set a previous left-sided pneumothorax requiring thoracotomy tube drainage and then definitive management with pleurodesis on the left. This was not done prophylactically on the right side. On examination she is dyspneic and working hard to breathe with tachypnea 22-26/m. Requiring oxygen support at 1 L per minute by nasal cannula maintaining are 95-96%. Trachea is midline. There is diffuse decreased air entry throughout the entire right lung. Concern is therefore for development of right-sided pneumothorax. Note she was here 2 days ago and a chest x-ray done at that time did not reveal any pneumothorax. Done to include a d-dimer as well. The only thing else that would decrease air entry to the right lung would be a large mucous plug in the major bronchus. She of the chest will be done with IV contrast. - Re-Assessments/Exams Free Text/Narrative Re-Assessment/Exam: 07/28/17 12:27 CT chest confirms clinical suspicion of a large right-sided pneumothorax a proximally 70%. Patient will require a chest tube placement. I will contact Dr. Evans in this regard. Anxious and I suspect she will require some degree of anesthesia I with either with propofol for conscious sedation to allow placement of the chest tube. Large tube needs to be placed as she is a candidate for repeat pleurodesis on the right side. Previous pleurodesis was done on the left side post development of pneumothorax. 07/28/17 12:[address] Evans--web content manager surgeon who will attend the patient in the ED. Contacted [employer] to help provide conscious sedation or duration. 07/28/17 14:22 patient is having increased chest pain at the insertion site of the chest tube. I will therefore give her Dilaudid 0.5 mg IV with Zofran 4 mg IV. Again she remains very anxious and she may need small doses of Ativan during her hospitalization. Dr. Evans has written orders for admission to the hospital. Departure - Departure Time of Disposition: 14:25 Disposition: Admitted As Inpatient 67 Condition: Fair Clinical Impression: Spontaneous pneumothorax, Pulmonary lymphangioleiomyomatosis - Discharge Information - My Orders Last 24 Hours: My Active Orders 07/28/17 12:15 Sodium Chloride 0.9% [Normal Saline] 100 ml IV ASDIRECTED - Assessment/Plan Last 24 Hours: My Active Orders 07/28/17 12:15 Sodium Chloride 0.9% [Normal Saline] 100 ml IV ASDIRECTED
[2017-07-28] MEDS ORDERED: Iopamidol 755 Mg/ML 100 ML Bottle IVPUSH ONE (12:05)
[2017-07-28] MEDS ORDERED: Sodium Chloride 0.9% 10 ML Syringe FLUSH ONE (12:05)
[2017-07-28] MEDS ORDERED: Sodium Chloride 0.9% 100 ML IV SCH (12:15)
--- NOTE | 2017-07-28 12:46 | CT ---
CT chest Technique: Multiple axial sections through the chest were obtained. Intravenous contrast was utilized. Study has been performed as a pulmonary angiogram protocol. Comparison: Prior chest CT study of 11/27/16. Findings: Pulmonary arteries are well opacified. No filling defects are seen to indicate pulmonary embolism. Mediastinum and hilar regions show no adenopathy or mass. No pericardial thickening is seen. Small portion of the visualized upper abdominal structures appear within normal limits. Large right sided pneumothorax is seen. Diffuse cystic change is seen throughout both lungs. Small amount of pleural fluid is seen within the right lung base. Impression: 1. Large right-sided pneumothorax which will require a chest tube. 2. Small amount of pleural fluid within the right lung base. 3. Diffuse cystic changes throughout both lungs compatible with lymphangioleiomyomatosis. This cystic changes similar to previous CT exam. Diagnostic code #5
--- NOTE | 2017-07-28 12:51 | PCM.PREANE ---
Preanesthetic Assessment - Anesthesia/Transfusion/Family Hx Anesthesia History: Prior Anesthesia Reaction Family History of Anesthesia Reaction: Yes (pseudocholinestersae deficency) Transfusion History: No Prior Transfusion(s) - Review of Systems General: Fatigue Pulmonary: Shortness of Breath Cardiovascular: No Symptoms Gastrointestinal: No Symptoms Neurological: No Symptoms Other: Reports: None - Physical Assessment NPO Status Date: 07/28/17 NPO Status Time: 12:50 (food 0730, sips of h2o here and "there") Pulse: 84 O2 Sat by Pulse Oximetry: 97 Respiratory Rate: 22 Blood Pressure: 150/115 Temperature: 36.5 C Vital Signs: Last Vital Signs Temp 36.7 C 07/28/17 11:47 Pulse 84 07/28/17 11:47 Resp 22 H 07/28/17 11:47 BP 150/115 H 07/28/17 11:47 Pulse Ox 97 07/28/17 11:47 Height: 1.7 m Weight: 65.771 kg ASA Class: 2 Mental Status: Alert & Oriented x3 Airway Class: Mallampati = 1 Dentition: Reports: Normal Dentition Thyro-Mental Finger Breadths: 3 Mouth Opening Finger Breadths: 3 ROM/Head Extension: Full Lungs: Clear to Auscultation, Normal Respiratory Effort, Decreased Breath Sounds (right side) Cardiovascular: Regular Rhythm, Tachycardia - Lab Values: Laboratory Last Values WBC 11.43 K/mm3 (3.98-10.04) H 07/28/17 12:35 RBC 5.16 M/mm3 (3.98-5.22) 07/28/17 12:35 Hgb 14.8 gm/L (11.2-15.7) 07/28/17 12:35 Hct 44.3 % (34.1-44.9) 07/28/17 12:35 MCV 85.9 fl (79.4-94.8) 07/28/17 12:35 MCH 28.7 pg (25.6-32.2) 07/28/17 12:35 MCHC 33.4 g/dl (32.2-35.5) 07/28/17 12:35 RDW Std Deviation 45.1 fL (36.4-46.3) 07/28/17 12:35 Plt Count 353 K/mm3 (182-369) 05/10/18 12:35 MPV 8.7 fl (9.4-12.3) L 07/28/17 12:35 - Allergies Allergies/Adverse Reactions: Allergies Allergy/AdvReac Type Severity Reaction Status Date / Time shellfish derived Allergy Rash Verified 07/28/17 11:47 - Blood Blood Available: No Product(s) Available: None - Anesthesia Plan Pre-Op Medication Ordered: Beta Ayo Beta Ayo: Metoprolol Med Last Dose Date: 07/27/17 Med Last Dose Time: 20:00 - Acknowledgements Anesthesia Type Planned: MAC Pt an Appropriate Candidate for the Planned Anesthesia: Yes Alternatives and Risks of Anesthesia Discussed w Pt/Guardian: Yes Pt/Guardian Understands and Agrees with Anesthesia Plan: Yes PreAnesthesia Questionnaire - Past Health History Medical/Surgical History: Denies Medical/Surgical History HEENT History: Reports: Allergic Rhinitis Cardiovascular History: Reports: Hypertension, Other (See Below) Other Cardiovascular History: MCNAIR disease Respiratory History: Reports: Other (See Below) Other Respiratory History: LAMS - lymphangioleiomyomatosis, pneumothorax Gastrointestinal History: Reports: Other (See Below) Other Gastrointestinal History: liver cyst - presents with the LAMS Genitourinary History: Reports: Renal Calculus 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 Generalized pain from chemo drug Neurological History: Reports: None Psychiatric History: Reports: ADD, ADHD, Anxiety Endocrine/Metabolic History: Reports: None Hematologic History: Reports: Anemia, Iron Deficiency, Other (See Below) Other Hematologic History: both related to Immunologic History: Reports: Immunosuppression Other Immunologic History: on an immnosuppresent drug for the LAMS Oncologic (Cancer) History: Reports: None Other Oncologic History: LMA present - Lymphangioleiomyomatosis Dermatologic History: Reports: None - Past Surgical History Head Surgeries/Procedures: Reports: None Respiratory Surgical History: Reports: Pleurodesis, Other (See Below) Other Respiratory Surgeries/Procedures: chest tube placement Female Surgical History: Reports: Section - SUBSTANCE USE Smoking Status *Q: Former Smoker Recreational Drug Use History: No - HOME MEDS Home Medications: Home Meds Dextroamphetamine/Amphetamine [Adderall 20 mg Tablet] 1 tab PO TID 04/29/16 [ History] clonazePAM [Clonazepam] 1 tab PO BID PRN 04/29/16 [History] traMADol [Ultram] 1 tab PO QID PRN 04/29/16 [History] Ibuprofen [IJD: Ibuprofen] 600 mg PO Q4H PRN #30 tablet 04/30/16 [Rx] Sirolimus 1 mg PO DAILY 08/13/16 [History] Cyclobenzaprine HCl 10 mg PO BID PRN 08/14/16 [History] oxyCODONE HCl/Acetaminophen [Percocet 5-325 mg Tablet] 1 - 2 each PO Q4H PRN # 24 tablet 09/02/16 [Rx] Metoprolol Succinate 50 mg PO DAILY 07/26/17 [History] - CURRENT (IN HOUSE) MEDS Current Meds: Current Medications Sodium Chloride (Normal Saline) 1,000 mls @ 100 mls/hr IV ASDIRECTED [facility] Last Admin: 07/28/17 12:23 Dose: 100 mls/hr Sodium Chloride (Normal Saline) 100 mls @ 60 mls/hr IV ASDIRECTED [facility] Last Admin: 07/28/17 12:25 Dose: 60 mls/hr Discontinued Medications Iopamidol (Isovue-370 (76%)) 100 ml IVPUSH ONETIME ONE Stop: 07/28/17 12:06 Last Admin: 07/28/17 12:25 Dose: 100 ml Sodium Chloride (Saline Flush) 10 ml FLUSH ONETIME ONE Stop: 07/28/17 12:06 Last Admin: 07/28/17 12:23 Dose: 10 ml
[2017-07-28] MEDS ORDERED: Propofol 200 MG/20 ML SDV ONE (13:01)
[2017-07-28] MEDS ORDERED: Midazolam 1 MG/ML 2 ML SDV ONE (13:01)
[2017-07-28] MEDS ORDERED: Lidocaine 1% 4 ML ONE (13:02)
[2017-07-28] MEDS ORDERED: Ketamine 500 mg/10 ML MDV ONE (13:02)
[2017-07-28] MEDS ORDERED: fentaNYL 100 MCG/2 ML SDV ONE (13:50)
[2017-07-28] MEDS ORDERED: Acetaminophen 325 MG Tab PO PRN (13:51)
[2017-07-28] MEDS ORDERED: Sodium Chloride 0.9% 10 ML Syringe FLUSH PRN (13:51)
[2017-07-28] MEDS ORDERED: Ibuprofen 600 MG Tab PO PRN (13:56)
--- NOTE | 2017-07-28 14:01 | PCM.HP ---
H&P History of Present Illness - General Date of Service: 07/28/17 Admit Problem/Dx: Admission Diagnosis/Problem Admission Diagnosis/Problem Pneumothorax on right Source of Information: Patient, RN History Limitations: Reports: No Limitations, Other (Anxious) - History of Present Illness Initial Comments - Free Text/Narative: 41-year-old female presents with a history of shortness of breath. She has a history of a left-sided spontaneous pneumothorax treated with surgical pleurodesis. She was seen in the ED and a CT scan revealed a right-sided pneumothorax with pulmonary parenchymal bullous disease. I was asked see her for chest tube placement and subsequent management. - Related Data Allergies/Adverse Reactions: Allergies Allergy/AdvReac Type Severity Reaction Status Date / Time shellfish derived Allergy Rash Verified 07/28/17 11:47 Home Medications: Home Meds Dextroamphetamine/Amphetamine [Adderall 20 mg Tablet] 1 tab PO TID 04/29/16 [ History] clonazePAM [Clonazepam] 1 tab PO BID PRN 04/29/16 [History] traMADol [Ultram] 2 tab PO QID PRN 04/29/16 [History] Ibuprofen [IJD: Ibuprofen] 600 mg PO Q4H PRN #30 tablet 04/30/16 [Rx] Sirolimus 1 mg PO DAILY 08/13/16 [History] Cyclobenzaprine HCl 10 mg PO BID PRN 08/14/16 [History] oxyCODONE HCl/Acetaminophen [Percocet 5-325 mg Tablet] 1 - 2 each PO Q4H PRN # 24 tablet 09/02/16 [Rx] Metoprolol Succinate 50 mg PO DAILY 07/26/17 [History] Past Medical History - Past Health History Medical/Surgical History: Denies Medical/Surgical History HEENT History: Reports: Allergic Rhinitis Cardiovascular History: Reports: Hypertension, Other (See Below) Other Cardiovascular History: MCNAIR disease Respiratory History: Reports: Other (See Below) Other Respiratory History: LAMS - lymphangioleiomyomatosis, pneumothorax Gastrointestinal History: Reports: Other (See Below) Other Gastrointestinal History: liver cyst - presents with the LAMS Genitourinary History: Reports: Renal Calculus Other Genitourinary History: 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 Generalized pain from chemo drug Neurological History: Reports: None Psychiatric History: Reports: ADD, ADHD, Anxiety Endocrine/Metabolic History: Reports: None Hematologic History: Reports: Anemia, Iron Deficiency, Other (See Below) Other Hematologic History: both related to Immunologic History: Reports: Immunosuppression Other Immunologic History: on an immnosuppresent drug for the LAMS Oncologic (Cancer) History: Reports: None Other Oncologic History: LMA present - Lymphangioleiomyomatosis Dermatologic History: Reports: None - Past Surgical History Head Surgeries/Procedures: Reports: None Respiratory Surgical History: Reports: Pleurodesis, Other (See Below) Other Respiratory Surgeries/Procedures: chest tube placement Female Surgical History: Reports: Section Social & Family History - Family History Family Medical History: Noncontributory - Tobacco Use Smoking Status *Q: Former Smoker Used Tobacco, but Quit: No - Caffeine Use Caffeine Use: Reports: None Other Caffeine Use: sometimes - Recreational Drug Use Recreational Drug Use: No - Living Situation & Occupation Living situation: Reports: , with Spouse, with Family (3 kids) Occupation: Unemployed H&P Review of Systems - Review of Systems: Review Of Systems: ROS reveals no pertinent complaints other than HPI. Exam - Exam Exam: See Below - Vital Signs Vital Signs: Last Vital Signs Temp 36.5 C 07/28/17 12:55 Pulse 84 07/28/17 12:55 Resp 22 H 07/28/17 12:55 BP 150/115 H 07/28/17 12:55 Pulse Ox 97 07/28/17 12:55 Weight: 65.771 kg - Exam Quality Assessment: Supplemental Oxygen General: Alert, Oriented, Cooperative, Mild Distress HEENT: EOMI, Hearing Intact Neck: Supple, Trachea Midline Lungs: Normal Respiratory Effort, Decreased Breath Sounds (Right chest) Cardiovascular: Regular Rate, Regular Rhythm, Normal S1, Normal S2 GI/Abdominal Exam: Soft, Non-Tender Rectal (Female) Exam: Deferred Extremities: Normal Inspection, Non-Tender Skin: Warm, Dry, Intact Neuro Extensive - Mental Status: Alert, Oriented x3, Normal Mood/Affect, Normal Cognition Psychiatric: Alert, Normal Affect, Normal Mood, Anxious - Patient Data Lab Results Last 24 hrs: Laboratory Results - last 24 hr 05/10/18 05/10/18 05/10/18 Range/Units 12:35 12:35 12:35 WBC 11.43 H (3.98-10.04) K/mm3 RBC 5.16 (3.98-5.22) M/mm3 Hgb 14.8 (11.2-15.7) gm/L Hct 44.3 (34.1-44.9) % MCV 85.9 (79.4-94.8) fl MCH 28.7 (25.6-32.2) pg MCHC 33.4 (32.2-35.5) g/dl RDW Std Deviation 45.1 (36.4-46.3) fL Plt Count 353 (182-369) K/mm3 MPV 8.7 L (9.4-12.3) fl Neutrophils % (Manual) 77 H (40-60) % Band Neutrophils % 1 (0-10) % Lymphocytes % (Manual) 19 L (20-40) % Atypical Lymphs % 0 % Immat Monocytes % (Man) 0 Monocytes % (Manual) 3 (2-10) % Eosinophils % (Manual) 0 L (0.7-5.8) % Basophils % (Manual) 0 L (0.1-1.2) Metamyelocytes % 0 Myelocytes % 0 Promyelocytes % 0 Blast Cells % 0 Plasma Cell % (Manual) 0 Nucleated RBCs 0.0 % Platelet Estimate Adequate RBC Morph Comment Normal D-Dimer, Quantitative 0.36 (0.19-0.50) mg/L Sodium 139 (136-145) mEq/L Potassium 3.9 (3.5-5.1) mEq/L Chloride 103 (98-107) mEq/L Carbon Dioxide 25 (21-32) mEq/L Anion Gap 14.9 (5-15) BUN 11 (7-18) mg/dL Creatinine 0.8 (0.55-1.02) mg/dL Est Cr Clr Drug Dosing 90.90 mL/min Estimated GFR (MDRD) > 60 (>60) mL/min BUN/Creatinine Ratio 13.8 L (14-18) Glucose 102 (74-106) mg/dL Calcium 9.1 (8.5-10.1) mg/dL Total Bilirubin 0.3 (0.2-1.0) mg/dL AST 31 (15-37) U/L ALT 39 (14-59) U/L Alkaline Phosphatase 64 (46-116) U/L Total Protein 7.6 (6.4-8.2) g/dl Albumin 3.9 (3.4-5.0) g/dl Globulin 3.7 gm/dL Albumin/Globulin Ratio 1.1 (1-2) Result Diagrams: 07/28/17 12:35 07/28/17 12:35 - Problem List (1) Pneumothorax, right SNOMED Code(s): 793641610 ICD Code: J93.9 - PNEUMOTHORAX, UNSPECIFIED Status: Acute Current Visit: Yes Problem List Initiated/Reviewed/Updated: Yes Orders Last 24hrs: Active Orders 24 hr Category Date Time Status Patient Status [ADT] Routine ADT 07/28/17 13:51 Ordered Chest Tube Management [RC] ASDIRECTED Care 07/28/17 13:51 Ordered Head of Bed Elevation [RC] ASDIRECTED Care 07/28/17 13:53 Ordered Oxygen Therapy [RC] PRN Care 07/28/17 13:51 Ordered Up to Chair [RC] ASDIRECTED Care 07/28/17 13:51 Ordered Vital Signs [RC] PER UNIT ROUTINE Care 07/28/17 13:51 Ordered Regular Diet [DIET] Diet 07/28/17 Dinner Ordered Chest 1V-Tube Placement Chk NC [CR] Stat Exams 07/28/17 13:55 Ordered Acetaminophen [Tylenol] Med 07/28/17 13:51 Ordered 650 mg PO Q6H PRN Acetaminophen/oxyCODONE [Percocet 325-5 MG] Med 07/28/17 13:56 Ordered 1 - 2 each PO Q4H PRN ClonazePAM [KlonoPIN] Med 07/28/17 13:56 Ordered 1 tab PO BID PRN Cyclobenzaprine [Flexeril] Med 07/28/17 13:56 Ordered 10 mg PO BID PRN Dextroamphetamine/Amphetamine [Adderall 20 mg Tablet] Med 07/28/17 15:00 Ordered 1 tab PO TID Ibuprofen [Motrin] Med 07/28/17 13:56 Ordered 600 mg PO Q4H PRN Ketorolac [Toradol] Med 07/28/17 13:51 Ordered 15 mg IVPUSH Q6H PRN Sirolimus [Sirolimus] Med 07/29/17 09:00 Ordered 1 mg PO DAILY Sodium Chloride 0.9% [Normal Saline] 1,000 ml Med 07/28/17 12:00 Active IV ASDIRECTED Sodium Chloride 0.9% [Normal Saline] 100 ml Med 07/28/17 12:15 Active IV ASDIRECTED Sodium Chloride 0.9% [Saline Flush] Med 07/28/17 13:51 Ordered 10 ml FLUSH ASDIRECTED PRN fentaNYL [Sublimaze] Med 07/28/17 13:51 Ordered 25 mcg IVPUSH Q1H PRN traMADol [Ultram] Med 07/28/17 13:56 Ordered 2 tab PO QID PRN Saline Lock Insert [OM.PC] Routine Oth 07/28/17 13:51 Ordered Resuscitation Status Routine Resus Stat 07/28/17 13:51 Ordered Medication Orders Acetaminophen (Tylenol) 650 mg PO Q6H PRN PRN Reason: Pain (mild 1-3) Fentanyl (Sublimaze) 25 mcg IVPUSH Q1H PRN PRN Reason: Pain (severe 7-10) Stop: 07/29/17 13:54 Sodium Chloride (Normal Saline) 1,000 mls @ 100 mls/hr IV ASDIRECTED [facility] Last Admin: 07/28/17 12:23 Dose: 100 mls/hr Sodium Chloride (Normal Saline) 100 mls @ 60 mls/hr IV ASDIRECTED [facility] Last Admin: 07/28/17 12:25 Dose: 60 mls/hr Ketorolac Tromethamine (Toradol) 15 mg IVPUSH Q6H PRN PRN Reason: Pain Sodium Chloride (Saline Flush) 10 ml FLUSH ASDIRECTED PRN PRN Reason: Keep Vein Open Assessment/Plan Comment:: Right-sided pneumothorax secondary to underlying connective tissue disorder. She 'll need a chest tube for lung reexpansion. Continuous suction for 5-7 days if there is an ongoing leak then I recommend thoracoscopic intervention.
--- NOTE | 2017-07-28 14:04 | PCM.OPNOTE ---
- General Post-Op/Procedure Note Date of Surgery/Procedure: 07/28/17 Operative Procedure(s): Right tube thoracostomy Findings: Air in the right chest secondary to pneumothorax Pre Op Diagnosis: Right symptomatic pneumothorax Post-Op Diagnosis: Same Anesthesia Technique: Local, MAC, Moderate Sedation Primary Surgeon: James Evans Pathology: None EBL in mLs: 0 Complications: None Condition: Good Free Text/Narrative:: After adequate IV sedation with monitoring the patient was placed on her left side. The fifth intercostal space at the inferior mammary crease and right anterior axillary line was prepped and draped sterilely with field towels. 5 mL of local analgesia was infused into the skin subcutaneous tissues and intercostal space. An 11 blade was used to make a 1 1/2 cm incision through the skin and subcutaneous tissues and through the intercostal musculature. There was a del cast[place] of air. A 28 Irish chest tube was inserted into the right pleural space and connected to suction. The tube was secured to the skin with an 0 silk suture. Gauze and silk tape were used for the dressing. There was a small air leak in the atrium. She tolerated the procedure well. A chest x-ray is pending.
[2017-07-28] MEDS ORDERED: Ondansetron 4 MG/2 ML SDV IVPUSH ONE (14:22)
[2017-07-28] MEDS ORDERED: HYDROmorphone 0.5 MG/0.5 ML SYRINGE IVPUSH ONE (14:22)
[2017-07-28] MEDS: Ketorolac 15 MG/ML SDV IVPUSH PRN ×3 (14:30→23:41)
[2017-07-28] MEDS: Acetaminophen/oxyCODONE 325-5 MG Tab PO PRN ×2 (14:31→18:44)
--- NOTE | 2017-07-28 14:41 | CR ---
Chest: Frontal view of the chest was obtained. Comparison: Prior chest CT performed earlier on the same date (12:12 PM). Right sided chest tube is seen. Previous pneumothorax has been evacuated. Diffuse interstitial change is seen. No acute pulmonary densities are noted. Heart size and mediastinum are normal. Bony structures are unremarkable. Impression: 1. Right-sided chest tube with evacuation of previous pneumothorax. 2. Other portions of the chest are stable. Diagnostic code #3
[2017-07-28] MEDS: traMADol 50 MG Tab PO PRN (16:23)
[2017-07-28] MEDS: ClonazePAM 0.5 MG Tab PO PRN (16:24)
[2017-07-28] MEDS ORDERED: Ondansetron 4 MG/2 ML SDV IVPUSH PRN (17:06)
[2017-07-28] MEDS: LORazepam 1 MG Tab PO PRN (17:13)
[2017-07-28] MEDS: fentaNYL 100 MCG/2 ML SDV IVPUSH PRN ×2 (18:10→20:32)
[2017-07-28] MEDS: AMPHETAMINE PO SCH ×2 (20:13→21:03)
[2017-07-28] MEDS: DEXTROAMPHETAMINE PO SCH ×2 (20:13→21:03)
[2017-07-28] MEDS: Cyclobenzaprine 10 MG Tab PO PRN (21:14)
[2017-07-28] MEDS: Zolpidem 5 MG Tab PO PRN (21:14)
[2017-07-29] MEDS: Acetaminophen/oxyCODONE 325-5 MG Tab PO PRN ×5 (02:18→23:36)
[2017-07-29] MEDS: LORazepam 1 MG Tab PO PRN ×3 (02:33→20:49)
[2017-07-29] MEDS: fentaNYL 100 MCG/2 ML SDV IVPUSH PRN ×4 (02:49→12:40)
[2017-07-29] MEDS: traMADol 50 MG Tab PO PRN ×2 (03:31→10:42)
[2017-07-29] MEDS: Ketorolac 15 MG/ML SDV IVPUSH PRN ×3 (06:59→20:41)
--- NOTE | 2017-07-29 08:23 | PCM.PN ---
- General Info Date of Service: 07/29/17 Functional Status: Reports: Pain Controlled (Mostly complains of localized chest wall pain on the right but significantly improved since chest tube insertion.), Tolerating Diet, Urinating - Patient Data Vitals - Most Recent: Last Vital Signs Temp 36.7 C 07/29/17 06:46 Pulse 75 07/29/17 06:46 Resp 16 07/29/17 06:46 BP 117/84 07/29/17 06:46 Pulse Ox 94 L 07/29/17 06:46 Weight - Most Recent: 67.903 kg I&O - Last 24 Hours: Intake & Output 07/28/17 07/29/17 07/29/17 22:59 06:59 14:59 Intake Total 0 630 Output Total 800 Balance 0 -170 Lab Results Last 24 Hours: Laboratory Results - last 24 hr 07/28/17 07/28/17 07/28/17 Range/Units 12:35 12:35 12:35 WBC 11.43 H (3.98-10.04) K/mm3 RBC 5.16 (3.98-5.22) M/mm3 Hgb 14.8 (11.2-15.7) gm/L Hct 44.3 (34.1-44.9) % MCV 85.9 (79.4-94.8) fl MCH 28.7 (25.6-32.2) pg MCHC 33.4 (32.2-35.5) g/dl RDW Std Deviation 45.1 (36.4-46.3) fL Plt Count 353 (182-369) K/mm3 MPV 8.7 L (9.4-12.3) fl Neutrophils % (Manual) 77 H (40-60) % Band Neutrophils % 1 (0-10) % Lymphocytes % (Manual) 19 L (20-40) % Atypical Lymphs % 0 % Immat Monocytes % (Man) 0 Monocytes % (Manual) 3 (2-10) % Eosinophils % (Manual) 0 L (0.7-5.8) % Basophils % (Manual) 0 L (0.1-1.2) Metamyelocytes % 0 Myelocytes % 0 Promyelocytes % 0 Blast Cells % 0 Plasma Cell % (Manual) 0 Nucleated RBCs 0.0 % Platelet Estimate Adequate RBC Morph Comment Normal D-Dimer, Quantitative 0.36 (0.19-0.50) mg/L Sodium 139 (136-145) mEq/L Potassium 3.9 (3.5-5.1) mEq/L Chloride 103 (98-107) mEq/L Carbon Dioxide 25 (21-32) mEq/L Anion Gap 14.9 (5-15) BUN 11 (7-18) mg/dL Creatinine 0.8 (0.55-1.02) mg/dL Est Cr Clr Drug Dosing 90.90 mL/min Estimated GFR (MDRD) > 60 (>60) mL/min BUN/Creatinine Ratio 13.8 L (14-18) Glucose 102 (74-106) mg/dL Calcium 9.1 (8.5-10.1) mg/dL Total Bilirubin 0.3 (0.2-1.0) mg/dL AST 31 (15-37) U/L ALT 39 (14-59) U/L Alkaline Phosphatase 64 (46-116) U/L Total Protein 7.6 (6.4-8.2) g/dl Albumin 3.9 (3.4-5.0) g/dl Globulin 3.7 gm/dL Albumin/Globulin Ratio 1.1 (1-2) Med Orders - Current: Current Medications Acetaminophen (Tylenol) 650 mg PO Q6H PRN PRN Reason: Pain (mild 1-3) Clonazepam (Klonopin) 0.5 mg PO BID PRN PRN Reason: Anxiety Last Admin: 07/28/17 16:24 Dose: 0.5 mg Cyclobenzaprine HCl (Flexeril) 10 mg PO BID PRN PRN Reason: Pain Last Admin: 07/28/17 21:14 Dose: 10 mg Fentanyl (Sublimaze) 25 mcg IVPUSH Q1H PRN PRN Reason: Pain (severe 7-10) Stop: 07/29/17 13:54 Last Admin: 07/29/17 02:49 Dose: 25 mcg Ibuprofen (Motrin) 600 mg PO Q4H PRN PRN Reason: Pain Ketorolac Tromethamine (Toradol) 15 mg IVPUSH Q6H PRN PRN Reason: Pain Last Admin: 07/29/17 06:59 Dose: 15 mg Lorazepam (Ativan) 2 mg PO Q8H PRN PRN Reason: Anxiety Last Admin: 07/29/17 02:33 Dose: 2 mg Ondansetron HCl (Zofran) 4 mg IVPUSH Q6H PRN PRN Reason: Nausea Oxycodone/Acetaminophen (Percocet 325-5 Mg) 1 - 2 tab PO Q4H PRN PRN Reason: pain relief. Last Admin: 07/29/17 02:18 Dose: 2 tab Dextroamphetamine/Amphetamine [ Adderall 20 Mg Tablet] 1 T 0 each PO TID [facility] Last Admin: 07/28/17 21:03 Dose: Not Given Sirolimus [Sirolimus (] 1 Mg) 0 each PO DAILY [facility] Sodium Chloride (Saline Flush) 10 ml FLUSH ASDIRECTED PRN PRN Reason: Keep Vein Open Tramadol HCl (Ultram) 100 mg PO QID PRN PRN Reason: Pain Last Admin: 07/29/17 03:31 Dose: 100 mg Zolpidem Tartrate (Ambien) 5 mg PO BEDTIME PRN PRN Reason: Sleep Last Admin: 07/28/17 21:14 Dose: 5 mg Discontinued Medications Fentanyl (Sublimaze) Confirm Administered Dose 100 mcg .ROUTE .STK-MED ONE Stop: 07/28/17 13:51 Hydromorphone HCl (Dilaudid) 0.5 mg IVPUSH ONETIME ONE Stop: 07/28/17 14:23 Last Admin: 07/28/17 14:42 Dose: 0.5 mg Sodium Chloride (Normal Saline) 1,000 mls @ 100 mls/hr IV ASDIRECTED [facility] Last Admin: 07/28/17 12:23 Dose: 100 mls/hr Sodium Chloride (Normal Saline) 100 mls @ 60 mls/hr IV ASDIRECTED [facility] Last Admin: 07/28/17 12:25 Dose: 60 mls/hr Lidocaine HCl (Xylocaine-Mpf 1%) Confirm Administered Dose 4 mls @ as directed .ROUTE .STK-MED ONE Stop: 07/28/17 13:03 Iopamidol (Isovue-370 (76%)) 100 ml IVPUSH ONETIME ONE Stop: 07/28/17 12:06 Last Admin: 07/28/17 12:25 Dose: 100 ml Ketamine HCl (Ketalar) Confirm Administered Dose 500 mg .ROUTE .STK-MED ONE Stop: 07/28/17 13:03 Midazolam HCl (Versed 1 Mg/Ml) Confirm Administered Dose 2 mg .ROUTE .STK-MED ONE Stop: 07/28/17 13:02 Ondansetron HCl (Zofran) 4 mg IVPUSH ONETIME ONE Stop: 07/28/17 14:23 Last Admin: 07/28/17 14:34 Dose: Not Given Propofol (Diprivan 20 Ml) Confirm Administered Dose 200 mg .ROUTE .STK-MED ONE Stop: 07/28/17 13:02 Sodium Chloride (Saline Flush) 10 ml FLUSH ONETIME ONE Stop: 07/28/17 12:06 Last Admin: 07/28/17 12:23 Dose: 10 ml - Exam General: Alert, Oriented, Cooperative, No Acute Distress - Problem List & Annotations (1) Pneumothorax, right SNOMED Code(s): 381362689 Code(s): J93.9 - PNEUMOTHORAX, UNSPECIFIED Status: Acute Current Visit: Yes - Problem List Review Problem List Initiated/Reviewed/Updated: Yes - My Orders Last 24 Hours: My Active Orders 07/28/17 13:51 Patient Status [ADT] Routine Chest Tube Management [RC] QSHIFT Oxygen Therapy [RC] PRN Up to Chair [RC] QSHIFT Vital Signs [RC] Q4HR Acetaminophen [Tylenol] 650 mg PO Q6H PRN Ketorolac [Toradol] 15 mg IVPUSH Q6H PRN Sodium Chloride 0.9% [Saline Flush] 10 ml FLUSH ASDIRECTED PRN fentaNYL [Sublimaze] 25 mcg IVPUSH Q1H PRN Saline Lock Insert [OM.PC] Routine Resuscitation Status Routine 07/28/17 13:53 Head of Bed Elevation [RC] QSHIFT 07/28/17 13:56 Acetaminophen/oxyCODONE [Percocet 325-5 MG] 1 - 2 tab PO Q4H PRN ClonazePAM [KlonoPIN] 0.5 mg PO BID PRN Cyclobenzaprine [Flexeril] 10 mg PO BID PRN Ibuprofen [Motrin] 600 mg PO Q4H PRN traMADol [Ultram] 100 mg PO QID PRN 07/28/17 15:00 Patient's Own Medication [Ptom] 0 each PO TID 07/28/17 17:05 LORazepam [Ativan] 2 mg PO Q8H PRN 07/28/17 17:06 Ondansetron [Zofran] 4 mg IVPUSH Q6H PRN 07/28/17 20:02 Zolpidem [Ambien] 5 mg PO BEDTIME PRN 07/28/17 21:21 Cooling Measures [Cooling Warming Measures] [RC] ASDIRECTED 07/28/17 Dinner Regular Diet [DIET] 07/29/17 09:00 Patient's Own Medication [Ptom] 0 each PO DAILY - Assessment Assessment:: Stable p.m. Anxiety is less. Chest tube shows no air leak. Plan the same. She tells me that her filleter from the [facility] recommend early thoracoscopic management of her spontaneous right-sided pneumothorax because of the underlying parenchymal disease and her need for sacrilimus. Dr. Norris was her thoracic surgeon in [place] who operated on the left chest and my office will reach out to him regarding a procedure for the right chest. - Plan Plan:: See above.
[2017-07-29] MEDS: DEXTROAMPHETAMINE PO SCH ×3 (09:11→22:56)
[2017-07-29] MEDS: AMPHETAMINE PO SCH ×3 (09:11→22:56)
[2017-07-29] MEDS: SIROLIMUS 1 MG PO SCH (12:04)
[2017-07-29] MEDS: Cyclobenzaprine 10 MG Tab PO PRN (14:56)
[2017-07-29] MEDS ORDERED: fentaNYL 12 MCG/HR Transdermal Patch TRDERM SCH (16:00)
[2017-07-29] MEDS: Zolpidem 5 MG Tab PO PRN (20:42)
[2017-07-30] MEDS: Ketorolac 15 MG/ML SDV IVPUSH PRN ×3 (07:29→21:15)
[2017-07-30] MEDS: Acetaminophen/oxyCODONE 325-5 MG Tab PO PRN ×4 (07:30→21:14)
--- NOTE | 2017-07-30 08:07 | PCM.PN ---
- General Info Date of Service: 07/30/17 Functional Status: Reports: Pain Controlled, Tolerating Diet, Urinating - Patient Data Vitals - Most Recent: Last Vital Signs Temp 36.7 C 07/30/17 05:09 Pulse 82 07/30/17 05:09 Resp 16 07/30/17 05:09 BP 107/60 07/30/17 05:09 Pulse Ox 97 07/30/17 05:09 Weight - Most Recent: 67.903 kg I&O - Last 24 Hours: Intake & Output 07/29/17 07/30/17 07/30/17 22:59 06:59 14:59 Intake Total 1000 1200 Output Total 718 Balance 282 1200 Med Orders - Current: Current Medications Acetaminophen (Tylenol) 650 mg PO Q6H PRN PRN Reason: Pain (mild 1-3) Clonazepam (Klonopin) 0.5 mg PO BID PRN PRN Reason: Anxiety Last Admin: 07/28/17 16:24 Dose: 0.5 mg Cyclobenzaprine HCl (Flexeril) 10 mg PO BID PRN PRN Reason: Pain Last Admin: 07/29/17 14:56 Dose: 10 mg Fentanyl (Duragesic) 12 mcg TRDERM Q72H [facility] Last Admin: 07/29/17 15:51 Dose: 12 mcg Ibuprofen (Motrin) 600 mg PO Q4H PRN PRN Reason: Pain Ketorolac Tromethamine (Toradol) 15 mg IVPUSH Q6H PRN PRN Reason: Pain Last Admin: 07/30/17 07:29 Dose: 15 mg Lorazepam (Ativan) 2 mg PO Q8H PRN PRN Reason: Anxiety Last Admin: 07/29/17 20:49 Dose: 2 mg Metoprolol Succinate (Toprol Xl) 100 mg PO DAILY [facility] Miscellaneous Information (Remove Patch) 1 ea TRDERM Q72H [facility] Ondansetron HCl (Zofran) 4 mg IVPUSH Q6H PRN PRN Reason: Nausea Oxycodone/Acetaminophen (Percocet 325-5 Mg) 1 - 2 tab PO Q4H PRN PRN Reason: pain relief. Last Admin: 07/30/17 07:30 Dose: 2 tab Dextroamphetamine/Amphetamine [ Adderall 20 Mg Tablet] 1 T 0 each PO TID [facility] Last Admin: 07/29/17 22:56 Dose: Not Given Sirolimus [Sirolimus (] 1 Mg) 0 each PO DAILY [facility] Last Admin: 07/29/17 12:04 Dose: Not Given Sodium Chloride (Saline Flush) 10 ml FLUSH ASDIRECTED PRN PRN Reason: Keep Vein Open Tramadol HCl (Ultram) 100 mg PO QID PRN PRN Reason: Pain Last Admin: 07/29/17 10:42 Dose: 100 mg Zolpidem Tartrate (Ambien) 5 mg PO BEDTIME PRN PRN Reason: Sleep Last Admin: 07/29/17 20:42 Dose: 5 mg Discontinued Medications Fentanyl (Sublimaze) Confirm Administered Dose 100 mcg .ROUTE .STK-MED ONE Stop: 07/28/17 13:51 Fentanyl (Sublimaze) 25 mcg IVPUSH Q1H PRN PRN Reason: Pain (severe 7-10) Stop: 07/29/17 13:54 Last Admin: 07/29/17 12:40 Dose: 25 mcg Hydromorphone HCl (Dilaudid) 0.5 mg IVPUSH ONETIME ONE Stop: 07/28/17 14:23 Last Admin: 07/28/17 14:42 Dose: 0.5 mg Sodium Chloride (Normal Saline) 1,000 mls @ 100 mls/hr IV ASDIRECTED [facility] Last Admin: 07/28/17 12:23 Dose: 100 mls/hr Sodium Chloride (Normal Saline) 100 mls @ 60 mls/hr IV ASDIRECTED [facility] Last Admin: 07/28/17 12:25 Dose: 60 mls/hr Lidocaine HCl (Xylocaine-Mpf 1%) Confirm Administered Dose 4 mls @ as directed .ROUTE .STK-MED ONE Stop: 07/28/17 13:03 Iopamidol (Isovue-370 (76%)) 100 ml IVPUSH ONETIME ONE Stop: 07/28/17 12:06 Last Admin: 07/28/17 12:25 Dose: 100 ml Ketamine HCl (Ketalar) Confirm Administered Dose 500 mg .ROUTE .STK-MED ONE Stop: 07/28/17 13:03 Midazolam HCl (Versed 1 Mg/Ml) Confirm Administered Dose 2 mg .ROUTE .STK-MED ONE Stop: 07/28/17 13:02 Ondansetron HCl (Zofran) 4 mg IVPUSH ONETIME ONE Stop: 07/28/17 14:23 Last Admin: 07/28/17 14:34 Dose: Not Given Propofol (Diprivan 20 Ml) Confirm Administered Dose 200 mg .ROUTE .STK-MED ONE Stop: 07/28/17 13:02 Sodium Chloride (Saline Flush) 10 ml FLUSH ONETIME ONE Stop: 07/28/17 12:06 Last Admin: 07/28/17 12:23 Dose: 10 ml - Exam Lungs: Other (Some respiratory variation in the collection unit but no) - Problem List & Annotations (1) Pneumothorax, right SNOMED Code(s): 762866792 Code(s): J93.9 - PNEUMOTHORAX, UNSPECIFIED Status: Acute Current Visit: Yes - Problem List Review Problem List Initiated/Reviewed/Updated: Yes - My Orders Last 24 Hours: My Active Orders 07/29/17 09:00 Patient's Own Medication [Ptom] 0 each PO DAILY 07/29/17 16:00 fentaNYL [Duragesic] 12 mcg TRDERM Q72H 07/30/17 09:00 Metoprolol Succinate [Toprol XL] 100 mg PO DAILY 08/01/17 16:00 Remove Patch 1 ea TRDERM Q72H - Assessment Assessment:: Pain better controlled. - Plan Plan:: Discussed transfer plans to [facility] on Dr. Norris's service to be discharged Tuesday at 05 30 after placement of a Heimlich valve.
[2017-07-30] MEDS: LORazepam 1 MG Tab PO PRN ×2 (08:58→17:56)
[2017-07-30] MEDS: DEXTROAMPHETAMINE PO SCH ×3 (08:59→21:11)
[2017-07-30] MEDS: AMPHETAMINE PO SCH ×3 (08:59→21:11)
[2017-07-30] MEDS ORDERED: Metoprolol Succinate 50 MG Tab.ER PO SCH (09:00)
[2017-07-30] MEDS ORDERED: fentaNYL 25 MCG/HR Transdermal Patch TRDERM SCH (09:00)
[2017-07-30] MEDS: SIROLIMUS 1 MG PO SCH ×2 (16:17→21:11)
[2017-07-30] MEDS ORDERED: Magnesium Hydroxide 400 MG/5 ML Susp 30 ML Cup PO ONE (17:49)
[2017-07-30] MEDS: Docusate Sodium 100 MG Cap PO SCH ×2 (17:55→21:10)
[2017-07-30] MEDS: ClonazePAM 0.5 MG Tab PO PRN (18:25)
[2017-07-30] MEDS: Zolpidem 5 MG Tab PO PRN (21:12)
[2017-07-30] MEDS: Metoprolol Succinate 50 MG Tab.ER PO SCH (21:12)
[2017-07-31] MEDS: Acetaminophen/oxyCODONE 325-5 MG Tab PO PRN ×5 (03:12→20:41)
[2017-07-31] MEDS: LORazepam 1 MG Tab PO PRN ×3 (03:13→19:46)
[2017-07-31] MEDS: Docusate Sodium 100 MG Cap PO SCH ×2 (08:09→20:39)
--- NOTE | 2017-07-31 08:52 | PCM.PN ---
- General Info Date of Service: 07/31/17 Functional Status: Reports: Pain Controlled, Tolerating Diet, Ambulating - Review of Systems Gastrointestinal: Reports: Flatus, Other (Bowel movement) - Patient Data Vitals - Most Recent: Last Vital Signs Temp 36.4 C 07/31/17 03:16 Pulse 72 07/31/17 07:45 Resp 14 07/31/17 03:16 BP 100/48 L 07/31/17 07:45 Pulse Ox 96 07/31/17 07:45 Weight - Most Recent: 66.95 kg I&O - Last 24 Hours: Intake & Output 07/30/17 07/31/17 07/31/17 22:59 06:59 14:59 Intake Total 2640 1050 Output Total 600 Balance 2640 450 Med Orders - Current: Current Medications Acetaminophen (Tylenol) 650 mg PO Q6H PRN PRN Reason: Pain (mild 1-3) Clonazepam (Klonopin) 0.5 mg PO BID PRN PRN Reason: Anxiety Last Admin: 07/30/17 18:25 Dose: 0.5 mg Cyclobenzaprine HCl (Flexeril) 10 mg PO BID PRN PRN Reason: Pain Last Admin: 07/29/17 14:56 Dose: 10 mg Docusate Sodium (Colace) 100 mg PO BID [facility] Last Admin: 07/31/17 08:09 Dose: 100 mg Fentanyl (Duragesic) 25 mcg TRDERM Q72H [facility] Last Admin: 07/30/17 10:49 Dose: 25 mcg Ibuprofen (Motrin) 600 mg PO Q4H PRN PRN Reason: Pain Ketorolac Tromethamine (Toradol) 15 mg IVPUSH Q6H PRN PRN Reason: Pain Last Admin: 07/30/17 21:15 Dose: 15 mg Lorazepam (Ativan) 2 mg PO Q8H PRN PRN Reason: Anxiety Last Admin: 07/31/17 03:13 Dose: 2 mg Metoprolol Succinate (Toprol Xl) 100 mg PO BEDTIME [facility] Last Admin: 07/30/17 21:12 Dose: 100 mg Midazolam HCl (Versed 1 Mg/Ml) 1 mg IVPUSH ONETIME ONE Stop: 08/01/17 05:01 Miscellaneous Information (Remove Patch) 1 ea TRDERM Q72H [facility] Ondansetron HCl (Zofran) 4 mg IVPUSH Q6H PRN PRN Reason: Nausea Oxycodone/Acetaminophen (Percocet 325-5 Mg) 1 - 2 tab PO Q4H PRN PRN Reason: pain relief. Last Admin: 07/31/17 08:08 Dose: 2 tab Dextroamphetamine/Amphetamine [ Adderall 20 Mg Tablet] 1 T 0 each PO TID [facility] Last Admin: 07/30/17 21:11 Dose: Not Given Sirolimus [Sirolimus (] 1 Mg) 0 each PO BEDTIME [facility] Last Admin: 07/30/17 21:11 Dose: 1 each Sodium Chloride (Saline Flush) 10 ml FLUSH ASDIRECTED PRN PRN Reason: Keep Vein Open Tramadol HCl (Ultram) 100 mg PO QID PRN PRN Reason: Pain Last Admin: 07/29/17 10:42 Dose: 100 mg Zolpidem Tartrate (Ambien) 5 mg PO BEDTIME PRN PRN Reason: Sleep Last Admin: 07/30/17 21:12 Dose: 5 mg Discontinued Medications Fentanyl (Sublimaze) Confirm Administered Dose 100 mcg .ROUTE .STK-MED ONE Stop: 07/28/17 13:51 Fentanyl (Sublimaze) 25 mcg IVPUSH Q1H PRN PRN Reason: Pain (severe 7-10) Stop: 07/29/17 13:54 Last Admin: 07/29/17 12:40 Dose: 25 mcg Fentanyl (Duragesic) 12 mcg TRDERM Q72H [facility] Last Admin: 07/29/17 15:51 Dose: 12 mcg Hydromorphone HCl (Dilaudid) 0.5 mg IVPUSH ONETIME ONE Stop: 07/28/17 14:23 Last Admin: 07/28/17 14:42 Dose: 0.5 mg Sodium Chloride (Normal Saline) 1,000 mls @ 100 mls/hr IV ASDIRECTED [facility] Last Admin: 07/28/17 12:23 Dose: 100 mls/hr Sodium Chloride (Normal Saline) 100 mls @ 60 mls/hr IV ASDIRECTED [facility] Last Admin: 07/28/17 12:25 Dose: 60 mls/hr Lidocaine HCl (Xylocaine-Mpf 1%) Confirm Administered Dose 4 mls @ as directed .ROUTE .STK-MED ONE Stop: 07/28/17 13:03 Iopamidol (Isovue-370 (76%)) 100 ml IVPUSH ONETIME ONE Stop: 07/28/17 12:06 Last Admin: 07/28/17 12:25 Dose: 100 ml Ketamine HCl (Ketalar) Confirm Administered Dose 500 mg .ROUTE .STK-MED ONE Stop: 07/28/17 13:03 Magnesium Hydroxide (Milk Of Magnesia) 30 ml PO ONETIME ONE Stop: 07/30/17 17:50 Last Admin: 07/30/17 17:55 Dose: Not Given Metoprolol Succinate (Toprol Xl) 100 mg PO DAILY [facility] Last Admin: 07/30/17 16:17 Dose: Not Given Midazolam HCl (Versed 1 Mg/Ml) Confirm Administered Dose 2 mg .ROUTE .STK-MED ONE Stop: 07/28/17 13:02 Miscellaneous Information (Remove Patch) 1 ea TRDERM Q72H [facility] Ondansetron HCl (Zofran) 4 mg IVPUSH ONETIME ONE Stop: 07/28/17 14:23 Last Admin: 07/28/17 14:34 Dose: Not Given Sirolimus [Sirolimus (] 1 Mg) 0 each PO DAILY [facility] Last Admin: 07/30/17 16:17 Dose: Not Given Propofol (Diprivan 20 Ml) Confirm Administered Dose 200 mg .ROUTE .STK-MED ONE Stop: 07/28/17 13:02 Sodium Chloride (Saline Flush) 10 ml FLUSH ONETIME ONE Stop: 07/28/17 12:06 Last Admin: 07/28/17 12:23 Dose: 10 ml - Exam Lungs: Normal Respiratory Effort - Problem List & Annotations (1) Pneumothorax, right SNOMED Code(s): 851046920 Code(s): J93.9 - PNEUMOTHORAX, UNSPECIFIED Status: Acute Current Visit: Yes - Problem List Review Problem List Initiated/Reviewed/Updated: Yes - My Orders Last 24 Hours: My Active Orders 07/30/17 08:09 Communication Order [RC] ROUTINE 07/30/17 09:00 fentaNYL [Duragesic] 25 mcg TRDERM Q72H 07/30/17 18:00 Docusate Sodium [Colace] 100 mg PO BID 07/30/17 21:00 Metoprolol Succinate [Toprol XL] 100 mg PO BEDTIME Patient's Own Medication [Ptom] 0 each PO BEDTIME 07/31/17 08:48 Communication Order [RC] ROUTINE Ready for Discharge [RC] PER UNIT ROUTINE 08/01/17 05:00 Midazolam [Versed 1 MG/ML] 1 mg IVPUSH ONETIME ONE 08/02/17 09:00 Remove Patch 1 ea TRDERM Q72H - Assessment Assessment:: Doing well - Plan Plan:: Discharge tomorrow morning at 05 30 after the Heimlich valve is placed over 0500. I will premedicate with Versed.
[2017-07-31] MEDS: DEXTROAMPHETAMINE PO SCH ×2 (10:42→14:24)
[2017-07-31] MEDS: AMPHETAMINE PO SCH ×2 (10:42→14:24)
[2017-07-31] MEDS: Ketorolac 15 MG/ML SDV IVPUSH PRN ×2 (11:07→19:44)
[2017-07-31] MEDS: ClonazePAM 0.5 MG Tab PO PRN (15:21)
[2017-07-31] MEDS: Zolpidem 5 MG Tab PO PRN (19:46)
[2017-07-31] MEDS: Metoprolol Succinate 50 MG Tab.ER PO SCH (20:40)
[2017-07-31] MEDS: SIROLIMUS 1 MG PO SCH (20:40)
[2017-08-01] MEDS: AMPHETAMINE PO SCH (00:13)
[2017-08-01] MEDS: DEXTROAMPHETAMINE PO SCH (00:13)
[2017-08-01] MEDS: Acetaminophen/oxyCODONE 325-5 MG Tab PO PRN (00:50)
[2017-08-01] MEDS ORDERED: Naloxone 0.4 MG/ML SDV IVPUSH PRN (02:02)
[2017-08-01] MEDS: Ketorolac 15 MG/ML SDV IVPUSH PRN (04:35)
[2017-08-01] MEDS: Cyclobenzaprine 10 MG Tab PO PRN (04:36)
[2017-08-01] MEDS ORDERED: Midazolam 1 MG/ML 2 ML SDV IVPUSH ONE (05:00)
[2017-08-01] MEDS: LORazepam 1 MG Tab PO PRN (05:16)
--- NOTE | 2017-08-01 05:23 | PCM.DCSUM1 ---
Discharge Summary - Hospital Course Free Text/Narrative:: Patient did well with the chest tube in place. The air leak stopped just after tube insertion and lung expansion. There was physiologic chest tube drainage while the chest tube remained in place on suction. Patient had some anxiety during this admission which was managed with anxiolytics. She also had a chest tube pain which was managed with a fentanyl patch. - Discharge Data Discharge Date: 08/01/17 Discharge Disposition: Home, Self-Care 01 Condition: Good - Discharge Diagnosis/Problem(s) (1) Pneumothorax, right SNOMED Code(s): 395679018 ICD Code: J93.9 - PNEUMOTHORAX, UNSPECIFIED Status: Acute Current Visit: Yes - Patient Summary/Data Operative Procedure(s) Performed: Right tube thoracostomy Complications: None Consults: None Recommended Follow-up Testing/Procedures: Dr. Norris a chest surgeon in [place] will see her for preop today. Planned Operative Procedure(s) after DC: Video-assisted thoracoscopic right chest procedure Hospital Course: Uneventful. - Patient Instructions Diet: NPO Activity: No Strenuous Activities Driving: Do Not Drive Showering/Bathing: No Showering Wound/Incision Care: Keep Operative Site/Wound Site Clean and Dry Notify Provider of: Fever - Discharge Plan Home Medications: Home Meds Dextroamphetamine/Amphetamine [Adderall 20 mg Tablet] 30 mg PO BID 04/29/16 [ History] clonazePAM [Clonazepam] 1 tab PO BID PRN 04/29/16 [History] traMADol [Ultram] 2 tab PO QID PRN 04/29/16 [History] Ibuprofen [IJD: Ibuprofen] 600 mg PO Q4H PRN #30 tablet 04/30/16 [Rx] Sirolimus 1 mg PO DAILY 08/13/16 [History] Cyclobenzaprine HCl 10 mg PO BID PRN 08/14/16 [History] oxyCODONE HCl/Acetaminophen [Percocet 5-325 mg Tablet] 1 - 2 each PO Q4H PRN # 24 tablet 09/02/16 [Rx] Metoprolol Succinate 100 mg PO DAILY 07/26/17 [History] Patient Handouts: Pneumothorax, Heimlich Valve Home Care Forms: ED Department Discharge Referrals: Emani Mcclendon, [employer] [Primary Care Provider] - - Discharge Summary/Plan Comment DC Time >30 min.: No Discharge Summary/Plan Comment: Discharge today. The patient's will drive her to [facility] to see Dr. Norris in his thoracic surgery clinic this morning. Preop labs will be performed followed by surgery this afternoon. - Patient Data Vitals - Most Recent: Last Vital Signs Temp 36.7 C 07/31/17 20:38 Pulse 77 07/31/17 20:40 Resp 18 07/31/17 20:38 BP 119/82 07/31/17 20:40 Pulse Ox 99 07/31/17 20:38 Weight - Most Recent: 68.084 kg I&O - Last 24 hours: Intake & Output 07/31/17 07/31/17 08/01/17 14:59 22:59 06:59 Intake Total 180 1500 Output Total 87 Balance 180 1413 Med Orders - Current: Current Medications Acetaminophen (Tylenol) 650 mg PO Q6H PRN PRN Reason: Pain (mild 1-3) Clonazepam (Klonopin) 0.5 mg PO BID PRN PRN Reason: Anxiety Last Admin: 07/31/17 15:21 Dose: 0.5 mg Cyclobenzaprine HCl (Flexeril) 10 mg PO BID PRN PRN Reason: Pain Last Admin: 08/01/17 04:36 Dose: 10 mg Docusate Sodium (Colace) 100 mg PO BID [facility] Last Admin: 07/31/17 20:39 Dose: 100 mg Fentanyl (Duragesic) 25 mcg TRDERM Q72H [facility] Last Admin: 07/30/17 10:49 Dose: 25 mcg Ibuprofen (Motrin) 600 mg PO Q4H PRN PRN Reason: Pain Ketorolac Tromethamine (Toradol) 15 mg IVPUSH Q6H PRN PRN Reason: Pain Last Admin: 08/01/17 04:35 Dose: 15 mg Lorazepam (Ativan) 2 mg PO Q8H PRN PRN Reason: Anxiety Last Admin: 08/01/17 05:16 Dose: 2 mg Metoprolol Succinate (Toprol Xl) 100 mg PO BEDTIME [facility] Last Admin: 07/31/17 20:40 Dose: 100 mg Miscellaneous Information (Remove Patch) 1 ea TRDERM Q72H [facility] Naloxone HCl (Narcan) 0.4 mg IVPUSH ONETIME PRN PRN Reason: Sedation Ondansetron HCl (Zofran) 4 mg IVPUSH Q6H PRN PRN Reason: Nausea Oxycodone/Acetaminophen (Percocet 325-5 Mg) 1 - 2 tab PO Q4H PRN PRN Reason: pain relief. Last Admin: 08/01/17 00:50 Dose: 2 tab Dextroamphetamine/Amphetamine [ Adderall 20 Mg Tablet] 1 T 0 each PO TID [facility] Last Admin: 08/01/17 00:13 Dose: Not Given Sirolimus [Sirolimus (] 1 Mg) 0 each PO BEDTIME [facility] Last Admin: 07/31/17 20:40 Dose: 1 each Sodium Chloride (Saline Flush) 10 ml FLUSH ASDIRECTED PRN PRN Reason: Keep Vein Open Tramadol HCl (Ultram) 100 mg PO QID PRN PRN Reason: Pain Last Admin: 07/29/17 10:42 Dose: 100 mg Zolpidem Tartrate (Ambien) 5 mg PO BEDTIME PRN PRN Reason: Sleep Last Admin: 07/31/17 19:46 Dose: 5 mg Discontinued Medications Fentanyl (Sublimaze) Confirm Administered Dose 100 mcg .ROUTE .STK-MED ONE Stop: 07/28/17 13:51 Fentanyl (Sublimaze) 25 mcg IVPUSH Q1H PRN PRN Reason: Pain (severe 7-10) Stop: 07/29/17 13:54 Last Admin: 07/29/17 12:40 Dose: 25 mcg Fentanyl (Duragesic) 12 mcg TRDERM Q72H [facility] Last Admin: 07/29/17 15:51 Dose: 12 mcg Hydromorphone HCl (Dilaudid) 0.5 mg IVPUSH ONETIME ONE Stop: 07/28/17 14:23 Last Admin: 07/28/17 14:42 Dose: 0.5 mg Sodium Chloride (Normal Saline) 1,000 mls @ 100 mls/hr IV ASDIRECTED [facility] Last Admin: 07/28/17 12:23 Dose: 100 mls/hr Sodium Chloride (Normal Saline) 100 mls @ 60 mls/hr IV ASDIRECTED [facility] Last Admin: 07/28/17 12:25 Dose: 60 mls/hr Lidocaine HCl (Xylocaine-Mpf 1%) Confirm Administered Dose 4 mls @ as directed .ROUTE .STK-MED ONE Stop: 07/28/17 13:03 Iopamidol (Isovue-370 (76%)) 100 ml IVPUSH ONETIME ONE Stop: 07/28/17 12:06 Last Admin: 07/28/17 12:25 Dose: 100 ml Ketamine HCl (Ketalar) Confirm Administered Dose 500 mg .ROUTE .STK-MED ONE Stop: 07/28/17 13:03 Magnesium Hydroxide (Milk Of Magnesia) 30 ml PO ONETIME ONE Stop: 07/30/17 17:50 Last Admin: 07/30/17 17:55 Dose: Not Given Metoprolol Succinate (Toprol Xl) 100 mg PO DAILY [facility] Last Admin: 07/30/17 16:17 Dose: Not Given Midazolam HCl (Versed 1 Mg/Ml) Confirm Administered Dose 2 mg .ROUTE .STK-MED ONE Stop: 07/28/17 13:02 Midazolam HCl (Versed 1 Mg/Ml) 1 mg IVPUSH ONETIME ONE Stop: 08/01/17 05:01 Last Admin: 08/01/17 04:57 Dose: 1 mg Miscellaneous Information (Remove Patch) 1 ea TRDERM Q72H [facility] Ondansetron HCl (Zofran) 4 mg IVPUSH ONETIME ONE Stop: 07/28/17 14:23 Last Admin: 07/28/17 14:34 Dose: Not Given Sirolimus [Sirolimus (] 1 Mg) 0 each PO DAILY [facility] Last Admin: 07/30/17 16:17 Dose: Not Given Propofol (Diprivan 20 Ml) Confirm Administered Dose 200 mg .ROUTE .STK-MED ONE Stop: 07/28/17 13:02 Sodium Chloride (Saline Flush) 10 ml FLUSH ONETIME ONE Stop: 07/28/17 12:06 Last Admin: 07/28/17 12:23 Dose: 10 ml
[2017-08-01 05:40] VITALS: BP 115/85
[2017-08-01] MEDS ORDERED: Remove Patch*FENTANYL TRDERM SCH (16:00)
[2017-08-02] MEDS ORDERED: Remove Patch*FENTANYL TRDERM SCH (09:00)
== END 2017-08-01 05:28 | disposition home or self-care (01) | DRG 142 ==
LOC: JD.ED 11:40 → JD.MS 13:51
PROVIDERS: ADMIT Surgery; ATTEND Surgery
PROC: 0W9900Z Drainage of Right Pleural Cavity with Drainage Device, Open Approach (ICD-10-PCS; principal; 2017-07-28)
DX: J84.81 Lymphangioleiomyomatosis (principal); J93.83 Other pneumothorax; I10 Essential (primary) hypertension; G89.29 Other chronic pain; F90.9 Attention-deficit hyperactivity disorder, unspecified type; F41.9 Anxiety disorder, unspecified; D50.9 Iron deficiency anemia, unspecified; M54.9 Dorsalgia, unspecified; Z91.013 Allergy to seafood; Z79.899 Other long term (current) drug therapy; Z87.891 Personal history of nicotine dependence
CPT/HCPCS: 00520; 32551; 36415; 71275; 71275-26; 80053; 85007; 85027; 85379; 94760; 94762; 96360; 99285-25; A9270-GY; J1170; J1885; J2001; J2250; J2704; J3010; J7030; J7040; J7050; Q9967

== ENCOUNTER 2017-10-31 15:25 | Emergency (ER) | payer BC ==
[2017-10-31 15:31] VITALS: BP 136/83
[2017-10-31] MEDS ORDERED: Sodium Chloride 0.9% 1,000 ML IV ONE (16:30)
--- NOTE | 2017-10-31 16:51 | CT ---
Head CT Technique: Multiple axial sections through the brain were obtained. Intravenous contrast was utilized. Comparison: No prior intracranial imaging. Findings: Ventricles along the basal cisterns and sulci over convexities are within normal limits for the patient's age. No abnormal parenchymal densities are seen. No evidence of intracranial hemorrhage. No midline shift or mass effect is seen. Bone window settings were reviewed which shows no acute calvarial abnormality. Visualized paranasal sinuses are clear. Impression: 1. Nothing acute is appreciated on noncontrast head CT study. Diagnostic code #1
--- NOTE | 2017-10-31 17:45 | EDM.PDOC ---
ED HPI GENERAL MEDICAL PROBLEM - General Chief Complaint: Neurological Problem Stated Complaint: [facility] Time Seen by Provider: 10/31/17 15:44 Source of Information: Reports: Patient History Limitations: Reports: No Limitations - History of Present Illness INITIAL COMMENTS - FREE TEXT/NARRATIVE: 41 year old female arrives via [facility] for evaluation following a possible seizure. Patient does not recall the event. Reports she remembers sitting on the porch with her mother. Then remembers arriving at the hospital. Per the patient's mother they were sitting on the porch together when the patient all of a sudden became stiff, her eyes "rolled to the back of her head" and she began foaming at the mouth. She did not fall. EMS was called. Per EMS patient was combative upon arrival. 2mg versed administered. Upon arrival to the ED the patient is alert and cooperative. She reports feeling fatigued. Patient has no history of seizures. She denies any recent trauma. Denies any drug or alcohol use. Patient denies any headaches, nausea, vomiting, chest pain , shortness of breath, tongue biting, urinary incontinence or stool incontinence. 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 She denies any chest pain or shortness of breath today. Patient currently sees a specialist in [place] for MCNAIR. Goes about once a year. Next scheduled to go in November. - Related Data Allergies Allergy/AdvReac Type Severity Reaction Status Date / Time shellfish derived Allergy Rash Verified 10/31/17 15:31 Home Meds: Home Meds clonazePAM [Clonazepam] 1 tab PO BID PRN 04/29/16 [History] traMADol [Ultram] 2 tab PO QID PRN 04/29/16 [History] Sirolimus 1 mg PO DAILY 08/13/16 [History] oxyCODONE HCl/Acetaminophen [Percocet 5-325 mg Tablet] 1 - 2 each PO Q4H PRN # 24 tablet 09/02/16 [Rx] Metoprolol Succinate 100 mg PO DAILY 07/26/17 [History] Albuterol [Ventolin HFA] 2 puff INH Q4H PRN 10/31/17 [History] Amphetamine Sulfate [Evekeo] 30 mg PO BID 10/31/17 [History] Ipratropium [Atrovent 0.06% Nasal [place]] 2 spray IN BID 10/31/17 [History] Naloxone [Narcan] 0.4 mg IN DAILY PRN 10/31/17 [History] Past Medical History - Past Health History Medical/Surgical History: Denies Medical/Surgical History HEENT History: Reports: Allergic Rhinitis Cardiovascular History: Reports: Hypertension, Other (See Below) Other Cardiovascular History: MCNAIR disease Respiratory History: Reports: Other (See Below) Other Respiratory History: LAMS - lymphangioleiomyomatosis, pneumothorax Gastrointestinal History: Reports: Other (See Below) Other Gastrointestinal History: liver cyst - presents with the LAMS Genitourinary History: Reports: Renal Calculus 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 Generalized pain from chemo drug Neurological History: Reports: None Psychiatric History: Reports: ADD, ADHD, Anxiety, Panic Attack Endocrine/Metabolic History: Reports: None Hematologic History: Reports: Anemia, Iron Deficiency, Other (See Below) Other Hematologic History: both related to Immunologic History: Reports: Immunosuppression Other Immunologic History: on an immnosuppresent drug for the LAMS Oncologic (Cancer) History: Reports: None Other Oncologic History: LMA present - Lymphangioleiomyomatosis Dermatologic History: Reports: None - Past Surgical History Head Surgeries/Procedures: Reports: None Respiratory Surgical History: Reports: Pleurodesis, Other (See Below) Other Respiratory Surgeries/Procedures: chest tube placement Female Surgical History: Reports: Section Social & Family History - Family History Family Medical History: Noncontributory - Tobacco Use Smoking Status *Q: Never Smoker Second Hand Smoke Exposure: No - Caffeine Use Caffeine Use: Reports: Soda Other Caffeine Use: sometimes Caffeine Use Comment: Patient states she drinks about 3 sodas per week - Recreational Drug Use Recreational Drug Use: No - Living Situation & Occupation Living situation: Reports: , with Spouse, with Family (3 kids) Occupation: Unemployed ED ROS GENERAL - Review of Systems Review Of Systems: See Below Constitutional: Reports: Fatigue HEENT: Reports: Other (no tongue biting) Respiratory: Denies: Shortness of Breath Cardiovascular: Denies: Chest Pain GI/Abdominal: Denies: Nausea, Stool Incontinence, Vomiting : Denies: Incontinence Neurological: Reports: Confusion, Seizure. Denies: Headache, Numbness, Tingling - Physical Exam Exam: See Below Exam Limited By: No Limitations General Appearance: Alert, WD/WN, No Apparent Distress Eye Exam: Bilateral Eye: Normal Inspection Ears: Normal External Exam Nose: Normal Inspection Throat/Mouth: Normal Inspection, Normal Lips, Normal Oropharynx, Normal Voice, No Airway Compromise. No: Evidence of Tongue Biting Head Exam: Atraumatic, Normocephalic Neck: Normal Inspection, Full Range of Motion Respiratory/Chest: No Respiratory Distress, Lungs Clear, Normal Breath Sounds Cardiovascular: Normal Peripheral Pulses, Regular Rate, Rhythm, No Murmur Neuro Exam (Abbreviated): Alert (AxOx3), Oriented, Normal Cognition, Memory Loss Recent Events Psychiatric: Normal Affect, Normal Mood Skin Exam: Warm, Dry, Normal Color Course - Vital Signs Last Recorded V/S: Last Vital Signs Temp 98.7 F 10/31/17 15:28 Pulse 121 H 10/31/17 15:28 Resp 16 10/31/17 15:28 BP 136/83 10/31/17 15:28 Pulse Ox 92 L 10/31/17 15:28 - Orders/Labs/Meds Labs: Laboratory Tests 10/31/17 10/31/17 10/31/17 Range/Units 16:09 16:09 16:09 WBC 9.43 (3.98-10.04) K/mm3 RBC 5.07 (3.98-5.22) M/mm3 Hgb 14.4 (11.2-15.7) gm/L Hct 42.9 (34.1-44.9) % MCV 84.6 (79.4-94.8) fl MCH 28.4 (25.6-32.2) pg MCHC 33.6 (32.2-35.5) g/dl RDW Std Deviation 46.1 (36.4-46.3) fL Plt Count 380 H (182-369) K/mm3 MPV 8.8 L (9.4-12.3) fl Neut % (Auto) 80.6 H (34.0-71.1) % Lymph % (Auto) 12.3 L (19.3-51.7) % [place] % (Auto) 6.4 (4.7-12.5) % Eos % (Auto) 0.4 L (0.7-5.8) Baso % (Auto) 0.2 (0.1-1.2) % Neut # (Auto) 7.60 H (1.56-6.13) K/mm3 Lymph # (Auto) 1.16 L (1.18-3.74) K/mm3 [place] # (Auto) 0.60 H (0.24-0.36) K/mm3 Eos # (Auto) 0.04 (0.04-0.36) K/mm3 Baso # (Auto) 0.02 (0.01-0.08) K/mm3 Sodium 141 (136-145) mEq/L Potassium 3.6 (3.5-5.1) mEq/L Chloride 105 (98-107) mEq/L Carbon Dioxide 22 (21-32) mEq/L Anion Gap 17.6 H (5-15) BUN 14 (7-18) mg/dL Creatinine 1.0 (0.55-1.02) mg/dL Est Cr Clr Drug Dosing 72.72 mL/min Estimated GFR (MDRD) > 60 (>60) mL/min BUN/Creatinine Ratio 14.0 (14-18) Glucose 155 H (74-106) mg/dL Calcium 8.8 (8.5-10.1) mg/dL Phosphorus 3.2 (2.6-4.7) mg/dL Magnesium 2.2 (1.8-2.4) mg/dl Total Bilirubin 0.3 (0.2-1.0) mg/dL AST 32 (15-37) U/L ALT 44 (14-59) U/L Alkaline Phosphatase 64 (46-116) U/L Total Protein 7.6 (6.4-8.2) g/dl Albumin 4.0 (3.4-5.0) g/dl Globulin 3.6 gm/dL Albumin/Globulin Ratio 1.1 (1-2) HCG, Qual (NEGATIVE) Urine Color (Yellow) Urine Appearance (Clear) Urine pH (5.0-8.0) Ur Specific [place] (1.005-1.030) Urine Protein (Negative) Urine Glucose (UA) (Negative) Urine Ketones (Negative) Urine Occult Blood (Negative) Urine Nitrite (Negative) Urine Bilirubin (Negative) Urine Urobilinogen (0.2-1.0) Ur Leukocyte Esterase (Negative) Urine RBC (0-5) /hpf Urine WBC (0-5) /hpf Ur Epithelial Cells (0-5) /hpf Urine Bacteria (FEW) /hpf Urine Mucus (FEW) /hpf Urine Opiates Screen (NEGATIVE) Ur Buprenorphine Scrn (NEGATIVE) Ur Oxycodone Screen (NEGATIVE) Urine Methadone Screen (NEGATIVE) Ur Propoxyphene Screen (NEGATIVE) Ur Barbiturates Screen (NEGATIVE) Ur Tricyclics Screen (NEGATIVE) Ur Phencyclidine Scrn (NEGATIVE) Ur Amphetamine Screen (NEGATIVE) U Methamphetamines Scrn (NEGATIVE) U Benzodiazepines Scrn (NEGATIVE) U Cocaine Metab Screen (NEGATIVE) U Marijuana (THC) Screen (NEGATIVE) Ethyl Alcohol 0.00 (0.00) gm% 10/31/17 10/31/17 10/31/17 Range/Units 16:09 16:50 16:50 WBC (3.98-10.04) K/mm3 RBC (3.98-5.22) M/mm3 Hgb (11.2-15.7) gm/L Hct (34.1-44.9) % MCV (79.4-94.8) fl MCH (25.6-32.2) pg MCHC (32.2-35.5) g/dl RDW Std Deviation (36.4-46.3) fL Plt Count (182-369) K/mm3 MPV (9.4-12.3) fl Neut % (Auto) (34.0-71.1) % Lymph % (Auto) (19.3-51.7) % [place] % (Auto) (4.7-12.5) % Eos % (Auto) (0.7-5.8) Baso % (Auto) (0.1-1.2) % Neut # (Auto) (1.56-6.13) K/mm3 Lymph # (Auto) (1.18-3.74) K/mm3 [place] # (Auto) (0.24-0.36) K/mm3 Eos # (Auto) (0.04-0.36) K/mm3 Baso # (Auto) (0.01-0.08) K/mm3 Sodium (136-145) mEq/L Potassium (3.5-5.1) mEq/L Chloride (98-107) mEq/L Carbon Dioxide (21-32) mEq/L Anion Gap (5-15) BUN (7-18) mg/dL Creatinine (0.55-1.02) mg/dL Est Cr Clr Drug Dosing mL/min Estimated GFR (MDRD) (>60) mL/min BUN/Creatinine Ratio (14-18) Glucose (74-106) mg/dL Calcium (8.5-10.1) mg/dL Phosphorus (2.6-4.7) mg/dL Magnesium (1.8-2.4) mg/dl Total Bilirubin (0.2-1.0) mg/dL AST (15-37) U/L ALT (14-59) U/L Alkaline Phosphatase (46-116) U/L Total Protein (6.4-8.2) g/dl Albumin (3.4-5.0) g/dl Globulin gm/dL Albumin/Globulin Ratio (1-2) HCG, Qual Negative (NEGATIVE) Urine Color Yellow (Yellow) Urine Appearance Slt cloudy H (Clear) Urine pH 5.5 (5.0-8.0) Ur Specific [place] > or = 1.030 (1.005-1.030) Urine Protein 3+ H (Negative) Urine Glucose (UA) Negative (Negative) Urine Ketones Negative (Negative) Urine Occult Blood Trace-intact H (Negative) Urine Nitrite Negative (Negative) Urine Bilirubin Negative (Negative) Urine Urobilinogen 0.2 (0.2-1.0) Ur Leukocyte Esterase Negative (Negative) Urine RBC 5-10 H (0-5) /hpf Urine WBC 5-10 H (0-5) /hpf Ur Epithelial Cells 10-20 H (0-5) /hpf Urine Bacteria Moderate H (FEW) /hpf Urine Mucus Few (FEW) /hpf Urine Opiates Screen Presumptive positive H (NEGATIVE) Ur Buprenorphine Scrn Negative (NEGATIVE) Ur Oxycodone Screen Negative (NEGATIVE) Urine Methadone Screen Negative (NEGATIVE) Ur Propoxyphene Screen Negative (NEGATIVE) Ur Barbiturates Screen Negative (NEGATIVE) Ur Tricyclics Screen Presumptive positive H (NEGATIVE) Ur Phencyclidine Scrn Negative (NEGATIVE) Ur Amphetamine Screen Presumptive positive H (NEGATIVE) U Methamphetamines Scrn Negative (NEGATIVE) U Benzodiazepines Scrn Negative (NEGATIVE) U Cocaine Metab Screen Negative (NEGATIVE) U Marijuana (THC) Screen Negative (NEGATIVE) Ethyl Alcohol (0.00) gm% Meds: Medications Discontinued Medications Generic Name Dose Route Start Last Admin Trade Name Araceli PRN Reason Stop Dose Admin Sodium Chloride 1,000 mls @ 999 mls/hr 10/31/17 16:30 10/31/17 16:48 Normal Saline IV 10/31/17 17:30 999 mls/hr ONETIME ONE Administration - Radiology Interpretation Free Text/Narrative:: Head CT Technique: Multiple axial sections through the brain were obtained. Intravenous contrast was utilized. Comparison: No prior intracranial imaging. Findings: Ventricles along the basal cisterns and sulci over convexities are within normal limits for the patient's age. No abnormal parenchymal densities are seen. No evidence of intracranial hemorrhage. No midline shift or mass effect is seen. Bone window settings were reviewed which shows no acute calvarial abnormality. Visualized paranasal sinuses are clear. Impression: 1. Nothing acute is appreciated on noncontrast head CT study. - Re-Assessments/Exams Free Text/Narrative Re-Assessment/Exam: 10/31/17 18:17 Reviewed labs and imaging with the patient. Recommend close follow-up in the clinic this week. Recommend an MRI and EEG. She can follow up with clinic provider for further workup. Recommend she see neurology. No driving until cleared by neurology. Discharge instructions as documented. Departure - Departure Time of Disposition: 18:18 Disposition: Home, Self-Care 01 Condition: Fair Clinical Impression: Confusion, Seizure - Discharge Information *PRESCRIPTION DRUG MONITORING PROGRAM REVIEWED*: No *COPY OF PRESCRIPTION DRUG MONITORING REPORT IN PATIENT JAIMIE: No Instructions: Confusion Referrals: Emani Mcclendon, HOMOGENIZER OPERATOR [Primary Care Provider] - Forms: ED Department Discharge Additional Instructions: Follow-up in the clinic this week. If you are unable to see Emani Mcclendon recommend Dr. Guerrero or Stormy Pastor at the clinic. Call [phone] schedule with one of these providers. you will likely need an MRI of your brain and EEG for further workup. make sure you are drinking plenty of fluids. No driving until cleared by neurology. Rest. Follow-up with neurology. Call [phone] to schedule with a provider there. Recommend Dr. Vuong or Dr. Bunn. Please return to the ER should your symptoms change or worsen.
== END 2017-10-31 18:35 | disposition home or self-care (01) ==
LOC: JD.ED 15:25
DX: R56.9 Unspecified convulsions (principal); R41.0 Disorientation, unspecified; I10 Essential (primary) hypertension; F41.9 Anxiety disorder, unspecified; Z79.899 Other long term (current) drug therapy; Z91.013 Allergy to seafood
CPT/HCPCS: 36415; 70450; 80053; 80306; 81001; 83735; 84100; 84703; 85025; 96360; 99285; G0480; J7040; 99284

== ENCOUNTER 2018-11-13 08:16 | Emergency (ER) | payer BC ==
[2018-11-13 08:25] VITALS: BP 154/114
--- NOTE | 2018-11-13 08:52 | EDM.PDOC ---
ED HPI GENERAL MEDICAL PROBLEM - General Chief Complaint: Respiratory Problem Stated Complaint: DIFFICULTY BREATHING Time Seen by Provider: 11/13/18 08:51 - History of Present Illness INITIAL COMMENTS - FREE TEXT/NARRATIVE: 42-year-old female resents the emergency room with a worsening cough. This started about 5 days ago and she's developed yellow-green sputum when she coughs. Patient has a history of MCNAIR disease he's had recurrent pneumothorax is however is doing low but better after pleurodesis therapy. Patient denies any fevers or chills she thought she was coming down with a sore throat but that started get better on its own. She uses her nebulizer at home to 3 times a day with this worsening cough and this seems to be helping Priscilla uses her rescue inhaler 3-5 times a day and this seems to be helping. She has a little bit of discomfort with breathing in deeply otherwise has no chest discomfort. Left Back Pain Score (Numeric/FACES): 5 - Related Data Allergies Allergy/AdvReac Type Severity Reaction Status Date / Time shellfish derived Allergy Rash Verified 10/31/17 15:31 Home Meds: Home Meds clonazePAM [Clonazepam] 1 tab PO BID PRN 04/29/16 [History] Sirolimus 1 mg PO DAILY 08/13/16 [History] oxyCODONE HCl/Acetaminophen [Percocet 5-325 mg Tablet] 1 - 2 each PO Q4H PRN # 24 tablet 09/02/16 [Rx] Metoprolol Succinate 100 mg PO DAILY 07/26/17 [History] Albuterol [Ventolin HFA] 2 puff INH Q4H PRN 10/31/17 [History] Amphetamine Sulfate [Evekeo] 30 mg PO BID 10/31/17 [History] Ipratropium [Atrovent 0.06% Nasal [place]] 2 spray IN BID 10/31/17 [History] Naloxone [Narcan] 0.4 mg IN DAILY PRN 10/31/17 [History] Doxycycline [Vibramycin] 100 mg PO Q12H #14 tab 11/13/18 [Rx] Past Medical History - Past Health History Medical/Surgical History: Denies Medical/Surgical History HEENT History: Reports: Allergic Rhinitis Cardiovascular History: Reports: Hypertension, Other (See Below) Other Cardiovascular History: MCNAIR disease Respiratory History: Reports: Other (See Below) Other Respiratory History: LAMS - lymphangioleiomyomatosis, pneumothorax Gastrointestinal History: Reports: Other (See Below) Other Gastrointestinal History: liver cyst - presents with the LAMS Genitourinary History: Reports: Renal Calculus 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 Generalized pain from chemo drug Neurological History: Reports: None Psychiatric History: Reports: ADD, ADHD, Anxiety, Panic Attack Endocrine/Metabolic History: Reports: None Hematologic History: Reports: Anemia, Iron Deficiency, Other (See Below) Other Hematologic History: both related to Immunologic History: Reports: Immunosuppression Other Immunologic History: on an immnosuppresent drug for the LAMS Oncologic (Cancer) History: Reports: None Other Oncologic History: MCNAIR present - Lymphangioleiomyomatosis Dermatologic History: Reports: None - Infectious Disease History Infectious Disease History: Reports: None - Past Surgical History Head Surgeries/Procedures: Reports: None Respiratory Surgical History: Reports: Pleurodesis, Other (See Below) Other Respiratory Surgeries/Procedures: chest tube placement Female Surgical History: Reports: Section Social & Family History - Family History Family Medical History: Noncontributory - Tobacco Use Smoking Status *Q: Never Smoker - Caffeine Use Caffeine Use: Reports: Tea Other Caffeine Use: sometimes Caffeine Use Comment: Patient states she drinks about 3 sodas per week - Recreational Drug Use Recreational Drug Use: No - Living Situation & Occupation Living situation: Reports: , with Spouse, with Family (3 kids) Occupation: Unemployed ED ROS GENERAL - Review of Systems Review Of Systems: See Below Constitutional: Reports: No Symptoms HEENT: Reports: Throat Pain (This has resolved) Respiratory: Reports: Pleuritic Chest Pain (Intermittent with deep breathing only), Cough, Sputum. Denies: Wheezing Cardiovascular: Reports: No Symptoms Endocrine: Reports: No Symptoms GI/Abdominal: Reports: No Symptoms Musculoskeletal: Reports: No Symptoms ED EXAM, GENERAL - Physical Exam Exam: See Below Exam Limited By: No Limitations General Appearance: Alert, No Apparent Distress Eye Exam: Bilateral Eye: Normal Inspection Ears: Normal External Exam, Normal Canal, Hearing Grossly Normal, Normal TMs Nose: Normal Inspection, Normal Mucosa, No Blood Throat/Mouth: Normal Inspection, Normal Lips, Normal Teeth, Normal Gums, Normal Oropharynx, Normal Voice, No Airway Compromise Head: Atraumatic, Normocephalic Neck: Normal Inspection, Supple, Non-Tender, Full Range of Motion. No: Lymphadenopathy (L), Lymphadenopathy (R), Thyromegaly Respiratory/Chest: No Respiratory Distress, Lungs Clear, Normal Breath Sounds Cardiovascular: Normal Peripheral Pulses, Regular Rate, Rhythm, No Edema, No Murmur GI/Abdominal: Normal Bowel Sounds, Soft, Non-Tender, No Organomegaly, No Distention, No Abnormal Bruit, No Mass Back Exam: Normal Inspection. No: CVA Tenderness (L), CVA Tenderness (R) Neurological: Alert, Oriented, Normal Cognition Course - Vital Signs Last Recorded V/S: Last Vital Signs Temp 36.4 C 11/13/18 08:22 Pulse 92 11/13/18 08:22 Resp 20 11/13/18 08:22 BP 154/114 H 11/13/18 08:22 Pulse Ox 99 11/13/18 08:22 - Re-Assessments/Exams Free Text/Narrative Re-Assessment/Exam: 11/13/18 09:42 Chest x-rays reviewed she's got some hyperinflation increased lung markings especially in the bases no obvious infiltrate overall lung markings are increased but this is stable with the patient's MCNAIR lung disease we will start her on doxycycline especially with the productive cough bringing up off-colored sputum. I discussed this with the patient and she agrees. She'll follow-up with her primary in the next couple of days. Departure - Departure Time of Disposition: 09:44 Disposition: Home, Self-Care 01 Clinical Impression: Bronchitis - Discharge Information Prescriptions: Doxycycline [Vibramycin] 100 mg PO Q12H #14 tab Referrals: Emani Mcclendon CASE FITTER [Primary Care Provider] - Forms: ED Department Discharge Additional Instructions: Return to the emergency room with any questions problems or worsening symptoms. Increase her nebulizer treatment 4 times a day at least and use your rescue inhaler as needed. Follow-up with your primary provider here in town in the next couple of days. Take the antibiotics as directed.
--- NOTE | 2018-11-13 09:26 | CR ---
Chest: Two views of the chest were obtained. Comparison: Prior chest x-ray of 04/03/18. Diffuse increased lung markings are seen. Findings appear to be slightly more prominent than seen on previous exam which is most likely technique related. I believe the findings are most likely chronic although difficult to exclude slight superimposed acute bronchitis. Lungs are hyperinflated which appear stable. Bony structures appear within normal limits for the patient's age. Heart size and mediastinum are normal. Impression: 1. Diffuse increased lung markings. Most if not all findings are stable from previous chest x-ray. As mentioned above, difficult to exclude superimposed acute bronchitis. 2. Lungs remain hyperinflated which is stable. Diagnostic code #3
== END 2018-11-13 09:55 | disposition home or self-care (01) ==
LOC: JD.ED 08:16
DX: J40 Bronchitis, not specified as acute or chronic (principal); I10 Essential (primary) hypertension; D64.9 Anemia, unspecified; F41.0 Panic disorder [episodic paroxysmal anxiety]; F90.9 Attention-deficit hyperactivity disorder, unspecified type; Z91.013 Allergy to seafood; Z79.899 Other long term (current) drug therapy
CPT/HCPCS: 71046; 71046-26; 99283; 99284-25

== ENCOUNTER 2019-04-14 05:11 | Emergency (ER) | payer BC ==
[2019-04-14 05:19] VITALS: BP 150/116; PULSE 87
[2019-04-14] MEDS ORDERED: Albuterol/Ipratropium 3.0-0.5 MG/3 ML Neb Soln NEB ONE (05:41)
[2019-04-14] MEDS ORDERED: Budesonide 0.5 MG/2 ML Neb Susp NEB ONE (05:42)
--- NOTE | 2019-04-14 05:49 | EDM.PDOC ---
ED HPI GENERAL MEDICAL PROBLEM - General Chief Complaint: ENT Problem Stated Complaint: cough short of breath chest pain Time Seen by Provider: 04/14/19 05:22 Source of Information: Reports: Patient History Limitations: Reports: No Limitations - History of Present Illness INITIAL COMMENTS - FREE TEXT/NARRATIVE: This is a 43-year-old female. She has a history of MIKE disease ( lymphangioleiomyomatosis). She has had a spontaneous pneumothorax in the past. She began coughing about 2 to 3 days ago and it is a constant cough with green sputum. She says her lungs are sore from her coughing and her chest is sore from her coughing but she is concerned that she might have pneumonia or another pneumothorax. She has no history of fever or chills. She is already on doxycycline for her face. She is on prednisone that she started and she has an albuterol breathing treatments and inhaler that she has been using. She has tried ioev-yke-zjottes cough syrups and Tessalon Perles but nothing seems to help. She did take some NyQuil last night that allowed her to sleep for about 3 to 4 hours. She basically comes to the clinic because of her concern for pneumonia or pneumothorax. Chest Pain Score (Numeric/FACES): 6 - Related Data Allergies Allergy/AdvReac Type Severity Reaction Status Date / Time shellfish derived Allergy Rash Verified 04/14/19 05:19 Home Meds: Home Meds clonazePAM [Clonazepam] 1 tab PO BID PRN 04/29/16 [History] Sirolimus 1 mg PO DAILY 08/13/16 [History] oxyCODONE HCl/Acetaminophen [Percocet 5-325 mg Tablet] 1 - 2 each PO Q4H PRN # 24 tablet 09/02/16 [Rx] Metoprolol Succinate 100 mg PO DAILY 07/26/17 [History] Albuterol [Ventolin HFA] 2 puff INH Q4H PRN 10/31/17 [History] Amphetamine Sulfate [Evekeo] 30 mg PO BID 10/31/17 [History] Ipratropium [Atrovent 0.06% Nasal Braxton] 2 spray IN BID 10/31/17 [History] Naloxone [Narcan] 0.4 mg IN DAILY PRN 10/31/17 [History] Past Medical History - Past Health History Medical/Surgical History: Denies Medical/Surgical History HEENT History: Reports: Allergic Rhinitis Cardiovascular History: Reports: Hypertension, Other (See Below) Other Cardiovascular History: MIKE disease Respiratory History: Reports: Other (See Below) Other Respiratory History: LAMS - lymphangioleiomyomatosis, pneumothorax Gastrointestinal History: Reports: Other (See Below) Other Gastrointestinal History: liver cyst - presents with the LAMS Genitourinary History: Reports: Renal Calculus Other Genitourinary History: 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 Generalized pain from chemo drug Neurological History: Reports: None Psychiatric History: Reports: ADD, ADHD, Anxiety, Panic Attack Endocrine/Metabolic History: Reports: None Hematologic History: Reports: Anemia, Iron Deficiency, Other (See Below) Other Hematologic History: both related to Immunologic History: Reports: Immunosuppression Other Immunologic History: on an immnosuppresent drug for the LAMS Oncologic (Cancer) History: Reports: None Other Oncologic History: MIKE present - Lymphangioleiomyomatosis Dermatologic History: Reports: None - Infectious Disease History Infectious Disease History: Reports: None - Past Surgical History Head Surgeries/Procedures: Reports: None Respiratory Surgical History: Reports: Pleurodesis, Other (See Below) Other Respiratory Surgeries/Procedures: chest tube placement Female Surgical History: Reports: Section Social & Family History - Family History Family Medical History: Noncontributory - Tobacco Use Smoking Status *Q: Never Smoker Second Hand Smoke Exposure: No - Caffeine Use Caffeine Use: Reports: Tea Other Caffeine Use: sometimes Caffeine Use Comment: Patient states she drinks about 3 sodas per week - Recreational Drug Use Recreational Drug Use: No - Living Situation & Occupation Living situation: Reports: , with Spouse, with Family (3 kids) Occupation: Unemployed ED ROS GENERAL - Review of Systems Review Of Systems: See Below Constitutional: Denies: Fever, Chills HEENT: Reports: Rhinitis Respiratory: Reports: Shortness of Breath, Cough Cardiovascular: Reports: Chest Pain Endocrine: Reports: No Symptoms GI/Abdominal: Reports: No Symptoms : Reports: No Symptoms Musculoskeletal: Reports: No Symptoms Skin: Reports: No Symptoms Neurological: Reports: No Symptoms Psychiatric: Reports: No Symptoms Hematologic/Lymphatic: Reports: No Symptoms ED EXAM, GENERAL - Physical Exam Exam: See Below Exam Limited By: No Limitations General Appearance: Alert, WD/WN, No Apparent Distress Eye Exam: Bilateral Eye: Normal Inspection Ears: Normal External Exam Nose: Clear Rhinorrhea Throat/Mouth: Normal Inspection, Normal Lips, Normal Voice, No Airway Compromise , Other (Complains of a scratchy throat) Head: Normocephalic Neck: Supple Respiratory/Chest: No Respiratory Distress, Decreased Breath Sounds. No: Crackles, Rales, Rhonchi, Pleural Rub, Retractions Cardiovascular: Regular Rate, Rhythm, No Murmur Back Exam: Normal Inspection, Full Range of Motion Extremities: Normal Inspection, Normal Range of Motion Neurological: Alert, Oriented Psychiatric: Normal Affect, Normal Mood Skin Exam: Warm, Dry Course - Vital Signs Last Recorded V/S: Last Vital Signs Temp 96.7 F 04/14/19 05:18 Pulse 87 04/14/19 05:18 Resp 20 04/14/19 05:18 BP 150/116 H 04/14/19 05:18 Pulse Ox 95 04/14/19 05:55 - Orders/Labs/Meds Orders: Active Orders 24 hr Category Date Time Status RT Aerosol Therapy [RC] ASDIRECTED Care 04/14/19 05:42 Active RT Aerosol Therapy [RC] ASDIRECTED Care 04/14/19 05:42 Active Chest 2V [CR] Stat Exams 04/14/19 05:41 Taken Meds: Medications Discontinued Medications Generic Name Dose Route Start Last Admin Trade Name Freq PRN Reason Stop Dose Admin Albuterol/Ipratropium 3 ml 04/14/19 05:41 04/14/19 05:53 Duoneb 3.0-0.5 Mg/3 Ml NEB 04/14/19 05:42 3 ml ONETIME ONE Administration Budesonide 0.5 mg 04/14/19 05:42 04/14/19 05:53 Pulmicort NEB 04/14/19 05:43 0.5 mg ONETIME ONE Administration - Radiology Interpretation Free Text/Narrative:: Chest x-ray does not show any pneumothorax or pneumonia. She does have different looking lung bahena due to her Mike disease. - Re-Assessments/Exams Free Text/Narrative Re-Assessment/Exam: 04/14/19 06:18 Spoke to the patient regarding the chest x-ray results. I do not see a pneumothorax or any suggestion of pneumonia. Patient is requesting some Tussionex to stop the cough since everything [id number] working and Tessalon Perles are not working. I will provide her a very small quantity of the Tussionex. She understands that he does have narcotics and it and she does not want to add additional medical problems by getting hooked on narcotics. She states she understands this. She apparently has a birthday that she has to host today for her child and she wants to be able to get through the day. Departure - Departure Time of Disposition: 06:33 Disposition: Home, Self-Care 01 Condition: Fair Clinical Impression: Lymphangioleiomyomatosis, Cough Upper respiratory infection Qualifiers: URI type: unspecified viral URI Qualified Code(s): J06.9 - Acute upper respiratory infection, unspecified - Discharge Information *PRESCRIPTION DRUG MONITORING PROGRAM REVIEWED*: Yes *COPY OF PRESCRIPTION DRUG MONITORING REPORT IN PATIENT JAIMIE: No Referrals: Emani Mcclendon, ASSISTANT SERVICE MANAGER [Primary Care Provider] - Forms: ED Department Discharge Additional Instructions: The Tussionex as needed for your cough, I gave you a limited supply since you already take medications of this caliber, follow-up with your doctor on Tuesday for recheck since you might eventually need to be placed on antibiotics, rest assured you do not have pneumonia or a pneumothorax at this time, return to the ER as needed Sepsis Event Note - Evaluation Sepsis Screening Result: No Definite Risk - Focused Exam Vital Signs: Vital Signs Temp Pulse Resp BP Pulse Ox Pulse Ox 04/14/19 05:55 95 04/14/19 05:18 96.7 F 87 20 150/116 H 98 Date Exam was Performed: 04/14/19 Time Exam was Performed: 06:33 - My Orders Last 24 Hours: My Active Orders 04/14/19 05:41 Chest 2V [CR] Stat 04/14/19 05:42 RT Aerosol Therapy [RC] ASDIRECTED RT Aerosol Therapy [RC] ASDIRECTED - Assessment/Plan Last 24 Hours: My Active Orders 04/14/19 05:41 Chest 2V [CR] Stat 04/14/19 05:42 RT Aerosol Therapy [RC] ASDIRECTED RT Aerosol Therapy [RC] ASDIRECTED
--- NOTE | 2019-04-14 13:33 | CR ---
Chest: 2 views of the chest were obtained. Comparison: Previous chest x-ray of 11/20/18. Lungs are hyperinflated. Diffuse reticulonodular interstitial change is seen which appears fairly stable from prior study. No definite acute parenchymal change is appreciated. Mild scoliosis is noted within the spine. Mild scattered disc space narrowing and endplate spurring is noted within the spine. Impression: 1. Hyperinflated lungs. 2. Reticulonodular interstitial change throughout both lungs. Findings are stable from prior exam. 3. Nothing acute is definitely appreciated. Diagnostic code #3 Study was dictated in [place] Standard Time
== END 2019-04-14 06:54 | disposition home or self-care (01) ==
LOC: JD.ED 05:11
DX: J84.81 Lymphangioleiomyomatosis (principal); J06.9 Acute upper respiratory infection, unspecified; I10 Essential (primary) hypertension; Z79.899 Other long term (current) drug therapy; Z91.013 Allergy to seafood
CPT/HCPCS: 71046; 71046-26; 94640; 99283; 99285-25; J7620-GY

== ENCOUNTER 2022-03-06 17:33 | Emergency (ER) | payer BC ==
[2022-03-06] MEDS ORDERED: Sodium Chloride 0.9% 10 ML Syringe FLUSH PRN (17:52)
[2022-03-06] MEDS ORDERED: Albuterol/Ipratropium 3.0-0.5 MG/3 ML Neb Soln NEB ONE (18:46)
[2022-03-06] MEDS ORDERED: LORazepam 0.5 MG Tab PO ONE (18:46)
[2022-03-06 20:30] VITALS: BP 124/93; PULSE 88
== END 2022-03-06 20:00 | disposition home or self-care (01) ==
LOC: JD.ED 17:33
DX: R06.02 Shortness of breath (principal); R09.02 Hypoxemia; I10 Essential (primary) hypertension; Z91.013 Allergy to seafood; Z79.899 Other long term (current) drug therapy
CPT/HCPCS: 36415; 71045; 80053; 85025; 94640; 94762; 99285; A9270; J3490; J7620-GY

== ENCOUNTER 2022-03-10 14:54 | Emergency (ER) | payer BC ==
[2022-03-10] MEDS ORDERED: Morphine 4 MG/ML Syringe IVPUSH ONE (15:33)
[2022-03-10] MEDS ORDERED: Morphine 2 MG/ML SYRINGE IVPUSH ONE (15:36)
[2022-03-10 17:34] LABS: CORONAVIRUS COVID-19 NAA NEGATIVE (NEGATIVE)
[2022-03-10 18:23] VITALS: BP 136/76; PULSE 85
== END 2022-03-10 18:12 | disposition home or self-care (01) ==
LOC: JD.ED 14:54
DX: R07.81 Pleurodynia (principal); I10 Essential (primary) hypertension; Z91.013 Allergy to seafood; Z79.899 Other long term (current) drug therapy; Z20.822 Contact with and (suspected) exposure to COVID-19
CPT/HCPCS: 0241U; 36415; 71046; 80053; 84484; 85025; 85379; 85610; 85730; 93005; 96374; 99284; J2270

== ENCOUNTER 2022-09-23 10:18 | Emergency (ER) | payer BC ==
[2022-09-23 10:23] VITALS: BP 153/101; PULSE 102
[2022-09-23] MEDS ORDERED: predniSONE 20 MG Tab PO ONE (10:46)
[2022-09-23] MEDS ORDERED: Albuterol/Ipratropium 3.0-0.5 MG/3 ML Neb Soln NEB ONE (10:46)
== END 2022-09-23 12:25 | disposition home or self-care (01) ==
LOC: JD.ED 10:18
DX: J18.9 Pneumonia, unspecified organism (principal); I10 Essential (primary) hypertension; Z91.013 Allergy to seafood; Z79.899 Other long term (current) drug therapy; Z87.891 Personal history of nicotine dependence
CPT/HCPCS: 71046; 94640; 99285; J7512; 99283; J7620-GY

== ENCOUNTER 2022-10-17 19:34 | Inpatient (IN) | payer BC ==
[2022-10-17] MEDS ORDERED: Sodium Chloride 0.9% 10 ML Syringe FLUSH PRN (20:02)
[2022-10-17 20:13] LABS: HEMATOCRIT 46.4 % (34.1-44.9); HEMOGLOBIN 15.3 gm/dl (11.2-15.7); MEAN CORPUSCULAR HEMOGLOBIN 27.9 pg (25.6-32.2); MEAN CORPUSCULAR VOLUME 84.5 fl (79.4-94.8); MEAN PLATELET VOLUME 9.1 fl (9.4-12.3); PLATELET COUNT,PLT 507 K/mm3 (182-369); RED BLOOD CELL COUNT 5.49 M/mm3 (3.98-5.22); WHITE BLOOD CELL COUNT,WBC 9.05 K/mm3 (3.98-10.04)
[2022-10-17 20:21] LABS: A/G RATIO 0.8 (1-2); ALBUMIN 3.8 g/dl (3.4-5.0); ANION GAP 16.5 (5-15); BILIRUBIN TOTAL 0.3 mg/dL (0.2-1.0); BUN/CREATININE RATIO 13.3 (14-18); C-REACTIVE PROTEIN 0.2 mg/dL (<1.0); CALCIUM 9.4 mg/dL (8.5-10.1); CREATININE 0.9 mg/dL (0.55-1.02); EST CRCL DRUG DOSING (CG) 76.76 mL/min; POTASSIUM,K 3.5 mEq/L (3.5-5.1); PROTEIN TOTAL,TP 8.4 g/dl (6.4-8.2)
[2022-10-17 20:40] LABS: BAND PERCENT MAN 0 % (0-10); BASOPHILS PERCENT MAN 1 (0.1-1.2); EOSINOPHILS PERCENT MAN 0 % (0.7-5.8); LYMPHOCYTES % ATYPICAL MANUAL 0 %; LYMPHOCYTES PERCENT MAN 18 % (20-40); MONOCYTES PERCENT MAN 6 % (2-10)
[2022-10-17 20:42] LABS: PLATELET COUNT ESTIMATE INCREASED; TOXIC GRANULATION 1+ SLIGHT
[2022-10-17 20:55] LABS: LACTIC ACID 0.9 mmol/L (0.4-2.0)
[2022-10-17] MEDS ORDERED: LORazepam 2 MG/ML SDV IVPUSH ONE (21:16)
[2022-10-17] MEDS ORDERED: Iopamidol 612 MG/ML 100 ML Bottle IVPUSH ONE (21:30)
[2022-10-17] MEDS ORDERED: Acetaminophen/oxyCODONE 325-5 MG Tab PO ONE (22:36)
[2022-10-18] MEDS ORDERED: LORazepam 2 MG/ML SDV IVPUSH STA ×2 (00:35→01:24)
[2022-10-18] MEDS ORDERED: predniSONE 20 MG Tab PO STA (01:05)
[2022-10-18] MEDS: LORazepam 2 MG/ML SDV IVPUSH PRN ×7 (03:40→22:32)
[2022-10-18] MEDS ORDERED: Promethazine 25 MG Tab PO PRN (06:20)
[2022-10-18] MEDS ORDERED: Albuterol 6.7 GM Inhaler INH PRN (07:10)
[2022-10-18] MEDS: Losartan 50 MG Tab PO SCH (08:01)
[2022-10-18] MEDS: Acetaminophen/oxyCODONE 325-5 MG Tab PO SCH ×5 (08:02→23:09)
[2022-10-18] MEDS ORDERED: Non-Formulary Medication 1 Each (Sertraline 100 MG Tablet) PO SCH (09:00)
[2022-10-18] MEDS ORDERED: AMPHETAMINE SULFATE 10 MG PO SCH (09:00)
[2022-10-18] MEDS: Sertraline 50 MG Tab PO SCH (11:15)
[2022-10-18] MEDS: Formoterol/Mometasone 200-5 MCG 8.8 GM Inhaler IH SCH ×2 (11:17→20:12)
[2022-10-18] MEDS ORDERED: Naloxone 0.4 MG/ML SDV IVPUSH PRN (12:06)
[2022-10-18] MEDS: Morphine 2 MG/ML SYRINGE IVPUSH PRN ×4 (14:28→22:32)
[2022-10-18] MEDS: ClonazePAM 0.5 MG Tab PO PRN (17:31)
[2022-10-18] MEDS: Albuterol 0.083% 2.5 MG/3 ML Neb Soln NEB PRN (17:37)
[2022-10-18] MEDS: SIROLIMUS 1 MG PO SCH (20:45)
[2022-10-19] MEDS: Acetaminophen/oxyCODONE 325-5 MG Tab PO SCH ×6 (03:38→23:48)
[2022-10-19] MEDS: LORazepam 2 MG/ML SDV IVPUSH PRN ×7 (03:38→23:50)
[2022-10-19] MEDS: Morphine 2 MG/ML SYRINGE IVPUSH PRN ×7 (04:34→23:50)
[2022-10-19] MEDS: Sertraline 50 MG Tab PO SCH ×2 (07:56→09:34)
[2022-10-19] MEDS: Losartan 50 MG Tab PO SCH ×2 (07:56→09:34)
[2022-10-19] MEDS: predniSONE 20 MG Tab PO SCH ×2 (07:57→09:34)
[2022-10-19] MEDS ORDERED: predniSONE 20 MG Tab PO SCH (09:00)
[2022-10-19] MEDS: ClonazePAM 0.5 MG Tab PO PRN ×2 (09:51→21:18)
[2022-10-19] MEDS ORDERED: Iopamidol 612 MG/ML 100 ML Bottle IVPUSH ONE (10:47)
[2022-10-19] MEDS ORDERED: Sodium Chloride 0.9% 10 ML Syringe FLUSH PRN (10:47)
[2022-10-19] MEDS: Formoterol/Mometasone 200-5 MCG 8.8 GM Inhaler IH SCH ×2 (10:59→20:19)
[2022-10-19] MEDS: Albuterol 0.083% 2.5 MG/3 ML Neb Soln NEB PRN (15:35)
[2022-10-19] MEDS: cloNIDine 0.1 MG Tab ** OWN MED PO SCH ×2 (20:37→21:19)
[2022-10-19] MEDS: SIROLIMUS 1 MG PO SCH (21:18)
[2022-10-20] MEDS: Morphine 2 MG/ML SYRINGE IVPUSH PRN ×2 (02:47→08:01)
[2022-10-20] MEDS: LORazepam 2 MG/ML SDV IVPUSH PRN ×2 (02:47→07:57)
[2022-10-20] MEDS: Acetaminophen/oxyCODONE 325-5 MG Tab PO SCH ×2 (02:48→08:04)
[2022-10-20] MEDS: Losartan 50 MG Tab PO SCH (08:04)
[2022-10-20] MEDS: predniSONE 20 MG Tab PO SCH (08:05)
[2022-10-20] MEDS: Sertraline 50 MG Tab PO SCH (08:06)
[2022-10-20] MEDS: ClonazePAM 0.5 MG Tab PO PRN (08:08)
[2022-10-20] MEDS: Formoterol/Mometasone 200-5 MCG 8.8 GM Inhaler IH SCH (08:43)
[2022-10-20] MEDS ORDERED: LORazepam 0.5 MG Tab PO PRN ×2 (09:40→12:00)
[2022-10-20 10:12] VITALS: BP 114/87; PULSE 90
== END 2022-10-20 10:30 | DRG 142 ==
LOC: JD.ED 19:34 → JD.MS 10-18 01:36 → OBSVTOIN 10-18 11:41
PROVIDERS: ADMIT Emergency Medicine; ATTEND Emergency Medicine
DX: J84.81 Lymphangioleiomyomatosis (principal); I10 Essential (primary) hypertension; F98.8 Other specified behavioral and emotional disorders with onset usually occurring in childhood and adolescence; F41.9 Anxiety disorder, unspecified; F32.A Depression, unspecified; R09.02 Hypoxemia; J93.83 Other pneumothorax; J45.909 Unspecified asthma, uncomplicated; D50.9 Iron deficiency anemia, unspecified; Z99.81 Dependence on supplemental oxygen; Z91.013 Allergy to seafood; Z79.899 Other long term (current) drug therapy; Z87.01 Personal history of pneumonia (recurrent); Z79.51 Long term (current) use of inhaled steroids
CPT/HCPCS: 36415; 71045; 71045-26; 71260; 71260-26; 80053; 83605; 85007; 85027; 85379; 86140; 87040; 93005; 93010; 94640; 94667; 94762; 96374; 96376; 99285; 99285-25; A9270-GY; J2060; J2270; J3490; J7512; J7620-GY; Q9967

== ENCOUNTER 2023-07-03 20:25 | Emergency (ER) | payer BC ==
[2023-07-03] MEDS ORDERED: Magnesium Sulfate (4.06 MEQ/ML) 5 GM/10 ML SDV IV ONE (20:30)
[2023-07-03 20:38] LABS: BASOPHILS ABSOLUTE AUTO 0.1 K/mm3 (0.0-0.2); EOSINOPHILS ABSOLUTE AUTO 0.2 K/mm3 (0.0-0.4); EOSINOPHILS PERCENT AUTO 2.3 % (0.0-6.0); HEMATOCRIT 43.8 % (37.0-47.0); HEMOGLOBIN 14.3 gm/dl (12.0-16.0); IMMATURE GRAN ABSOLUTE AUTO 0.01 K/mm3 (0.00-0.05); IMMATURE GRAN PERCENT AUTO 0.1 % (0.0-0.4); LYMPHOCYTES ABSOLUTE AUTO 3.2 K/mm3 (1.0-4.8); LYMPHOCYTES PERCENT AUTO 38.4 % (24.0-44.0); MEAN CORPUSCULAR HEMOGLOBIN 28.5 pg (28.0-32.0); MEAN CORPUSCULAR HGB CONC 32.6 g/dl (32.0-36.0); MEAN CORPUSCULAR VOLUME 87.3 fl (83.0-99.0); MEAN PLATELET VOLUME 8.6 fl (9.4-12.3); MONOCYTES ABSOLUTE AUTO 0.7 K/mm3 (0.0-0.8); MONOCYTES PERCENT AUTO 8.1 % (0.0-8.0); NEUTROPHILS ABSOLUTE AUTO 4.2 K/mm3 (1.8-7.7); NEUTROPHILS PERCENT AUTO 50.1 % (41.0-71.0); PLATELET COUNT,PLT 369 K/mm3 (150-400); RED BLOOD CELL COUNT 5.02 M/mm3 (4.10-5.30)
[2023-07-03] MEDS: Albuterol/Ipratropium 3.0-0.5 MG/3 ML Neb Soln NEB SCH (20:44)
[2023-07-03] MEDS: Magnesium Sulfate/Water 2 GM in Premix Bag 1 BAG IV ONE (20:53)
[2023-07-03] MEDS: ALPRAZolam 0.25 MG Tab PO ONE (20:54)
[2023-07-03] MEDS: methylPREDNISolone Sodium Succinate 125 MG/2 ML SDV IVPUSH ONE (20:54)
[2023-07-03 21:08] LABS: A/G RATIO 1.1 (1-2); ALANINE AMINOTRANSFERASE,ALT 36 U/L (14-59); ALKALINE PHOSPHATASE 93 U/L (46-116); ANION GAP 13.6 (5-15); ASPARTATE AMNIOTRANSFERASE,AST 29 U/L (15-37); BILIRUBIN TOTAL 0.2 mg/dL (0.2-1.0); BLOOD UREA NITROGEN,BUN 7 mg/dL (7-18); BUN/CREATININE RATIO 8.8 (14-18); CALCIUM 8.6 mg/dL (8.5-10.1); CARBON DIOXIDE,CO2 28 mEq/L (21-32); CHLORIDE,CL 101 mEq/L (98-107); CREATININE 0.8 mg/dL (0.55-1.02); ESTIMATED GFR 92 mL/min (>60); GLUCOSE RANDOM 118 mg/dL (70-99); POTASSIUM,K 3.6 mEq/L (3.5-5.1); PROTEIN TOTAL,TP 7.6 g/dl (6.4-8.2); SODIUM,NA 139 mEq/L (136-145)
[2023-07-03 21:37] LABS: CORONAVIRUS COVID-19 NAA NEGATIVE (NEGATIVE); INFLUENZA A NAA NEGATIVE (NEGATIVE); RESPIRATORY SYNCYTIAL VIR NAA NEGATIVE (NEGATIVE)
[2023-07-03 22:23] VITALS: BP 145/89; PULSE 90
== END 2023-07-03 22:24 | disposition home or self-care (01) ==
LOC: JD.ED 20:25
DX: J45.41 Moderate persistent asthma with (acute) exacerbation (principal); J84.81 Lymphangioleiomyomatosis; I10 Essential (primary) hypertension; Z91.013 Allergy to seafood; Z79.899 Other long term (current) drug therapy; Z86.19 Personal history of other infectious and parasitic diseases; Z79.51 Long term (current) use of inhaled steroids
CPT/HCPCS: 0241U; 36415; 71045; 80053; 85025; 94640; 96374; 96375; 99285; A9270; J2930; J3475; J7620-GY

== ENCOUNTER 2023-08-16 18:10 | Emergency (ER) | payer BC ==
[2023-08-16] MEDS: LORazepam 2 MG/ML SDV IVPUSH ONE ×2 (19:29→20:41)
[2023-08-16] MEDS: Sodium Chloride 0.9% 10 ML Syringe FLUSH PRN (19:29)
[2023-08-16 19:52] LABS: BASOPHILS ABSOLUTE AUTO 0.1 K/mm3 (0.0-0.2); BASOPHILS PERCENT AUTO 0.9 % (0.0-1.0); EOSINOPHILS ABSOLUTE AUTO 0.4 K/mm3 (0.0-0.4); EOSINOPHILS PERCENT AUTO 3.9 % (0.0-6.0); HEMATOCRIT 50.2 % (37.0-47.0); HEMOGLOBIN 16.6 gm/dl (12.0-16.0); IMMATURE GRAN ABSOLUTE AUTO 0.02 K/mm3 (0.00-0.05); IMMATURE GRAN PERCENT AUTO 0.2 % (0.0-0.4); LYMPHOCYTES ABSOLUTE AUTO 2.5 K/mm3 (1.0-4.8); LYMPHOCYTES PERCENT AUTO 26.1 % (24.0-44.0); MEAN CORPUSCULAR HEMOGLOBIN 28.1 pg (28.0-32.0); MEAN CORPUSCULAR HGB CONC 33.1 g/dl (32.0-36.0); MEAN CORPUSCULAR VOLUME 84.9 fl (83.0-99.0); MEAN PLATELET VOLUME 8.6 fl (9.4-12.3); MONOCYTES ABSOLUTE AUTO 0.8 K/mm3 (0.0-0.8); MONOCYTES PERCENT AUTO 8.1 % (0.0-8.0); NEUTROPHILS ABSOLUTE AUTO 5.9 K/mm3 (1.8-7.7); NEUTROPHILS PERCENT AUTO 60.8 % (41.0-71.0); PLATELET COUNT,PLT 381 K/mm3 (150-400); RED BLOOD CELL COUNT 5.91 M/mm3 (4.10-5.30); WHITE BLOOD CELL COUNT,WBC 9.72 K/mm3 (3.9-11.3)
[2023-08-16 20:13] LABS: ALANINE AMINOTRANSFERASE,ALT 80 U/L (14-59); ALBUMIN 4.5 g/dl (3.4-5.0); ALKALINE PHOSPHATASE 90 U/L (46-116); ANION GAP 13.5 (5-15); ASPARTATE AMNIOTRANSFERASE,AST 65 U/L (15-37); BILIRUBIN TOTAL 0.2 mg/dL (0.2-1.0); BLOOD UREA NITROGEN,BUN 17 mg/dL (7-18); CALCIUM 10.1 mg/dL (8.5-10.1); CARBON DIOXIDE,CO2 30 mEq/L (21-32); CHLORIDE,CL 98 mEq/L (98-107); EST CRCL DRUG DOSING (CG) 68.36 mL/min; ESTIMATED GFR 70 mL/min (>60); GLUCOSE RANDOM 85 mg/dL (70-99); POTASSIUM,K 4.5 mEq/L (3.5-5.1); PROTEIN TOTAL,TP 9.1 g/dl (6.4-8.2); SODIUM,NA 137 mEq/L (136-145)
[2023-08-16 20:14] LABS: TROPONIN I HIGH SENSITIVITY < 4 pg/mL (<=51)
[2023-08-16 21:43] VITALS: BP 121/49; PULSE 82
== END 2023-08-16 22:00 | disposition home or self-care (01) ==
LOC: JD.ED 18:10
DX: J84.81 Lymphangioleiomyomatosis (principal); F41.0 Panic disorder [episodic paroxysmal anxiety]; I10 Essential (primary) hypertension; J45.909 Unspecified asthma, uncomplicated; Z79.899 Other long term (current) drug therapy; Z91.013 Allergy to seafood; Z79.51 Long term (current) use of inhaled steroids
CPT/HCPCS: 36415; 71046; 80053; 84484; 85025; 93005; 96374; 96376; 99285; J2060; J3490

== ENCOUNTER 2023-09-24 11:47 | Emergency (ER) | payer BC ==
[2023-09-24] MEDS: Albuterol/Ipratropium 3.0-0.5 MG/3 ML Neb Soln NEB ONE (12:22)
[2023-09-24] MEDS: LORazepam 1 MG Tab PO ONE (12:36)
[2023-09-24 13:01] LABS: A/G RATIO 0.9 (1-2); ALBUMIN 3.1 g/dl (3.4-5.0); ANION GAP 10.1 (5-15); BILIRUBIN TOTAL 0.1 mg/dL (0.2-1.0); BUN/CREATININE RATIO 17.5 (14-18); CALCIUM 8.3 mg/dL (8.5-10.1); CREATININE 0.8 mg/dL (0.55-1.02); EST CRCL DRUG DOSING (CG) 85.45 mL/min; POTASSIUM,K 4.1 mEq/L (3.5-5.1); PROTEIN TOTAL,TP 6.4 g/dl (6.4-8.2)
[2023-09-24 13:08] LABS: BASOPHILS PERCENT AUTO 0.4 % (0.0-1.0); EOSINOPHILS ABSOLUTE AUTO 0.4 K/mm3 (0.0-0.4); EOSINOPHILS PERCENT AUTO 5.8 % (0.0-6.0); HEMATOCRIT 41.1 % (37.0-47.0); IMMATURE GRAN ABSOLUTE AUTO 0.01 K/mm3 (0.00-0.05); IMMATURE GRAN PERCENT AUTO 0.1 % (0.0-0.4); LYMPHOCYTES ABSOLUTE AUTO 1.8 K/mm3 (1.0-4.8); MEAN CORPUSCULAR HEMOGLOBIN 27.9 pg (28.0-32.0); MEAN CORPUSCULAR HGB CONC 32.4 g/dl (32.0-36.0); MEAN CORPUSCULAR VOLUME 86.3 fl (83.0-99.0); MEAN PLATELET VOLUME 9.3 fl (9.4-12.3); MONOCYTES ABSOLUTE AUTO 0.4 K/mm3 (0.0-0.8); MONOCYTES PERCENT AUTO 5.4 % (0.0-8.0); NEUTROPHILS ABSOLUTE AUTO 4.3 K/mm3 (1.8-7.7); NEUTROPHILS PERCENT AUTO 62.3 % (41.0-71.0); RED BLOOD CELL COUNT 4.76 M/mm3 (4.10-5.30); WHITE BLOOD CELL COUNT,WBC 6.89 K/mm3 (3.9-11.3)
[2023-09-24 13:09] LABS: HEMOGLOBIN 13.3 gm/dl (12.0-16.0); PLATELET COUNT,PLT 303 K/mm3 (150-400)
[2023-09-24] MEDS: Acetaminophen 325 MG Tab PO ONE (13:26)
[2023-09-24 14:22] VITALS: BP 125/85; PULSE 83
== END 2023-09-24 13:54 | disposition home or self-care (01) ==
LOC: JD.ED 11:47
DX: F41.9 Anxiety disorder, unspecified (principal); J84.81 Lymphangioleiomyomatosis; I10 Essential (primary) hypertension; J45.909 Unspecified asthma, uncomplicated; Z91.013 Allergy to seafood; Z79.899 Other long term (current) drug therapy; Z79.51 Long term (current) use of inhaled steroids
CPT/HCPCS: 36415; 71045; 80053; 85025; 94640; 99285; A9270; J7620-GY

== ENCOUNTER 2023-09-25 06:23 | Emergency (ER) | payer BC ==
[2023-09-25] MEDS: Sodium Chloride 0.9% 10 ML Syringe FLUSH PRN (06:50)
[2023-09-25] MEDS ORDERED: Naloxone 0.4 MG/ML SDV IVPUSH PRN (06:53)
[2023-09-25] MEDS: Morphine 4 MG/ML Syringe IVPUSH ONE (07:00)
[2023-09-25 07:05] LABS: BASOPHILS PERCENT AUTO 0.6 % (0.0-1.0); EOSINOPHILS ABSOLUTE AUTO 0.5 K/mm3 (0.0-0.4); HEMATOCRIT 44.3 % (37.0-47.0); HEMOGLOBIN 14.5 gm/dl (12.0-16.0); IMMATURE GRAN ABSOLUTE AUTO 0.02 K/mm3 (0.00-0.05); IMMATURE GRAN PERCENT AUTO 0.3 % (0.0-0.4); LYMPHOCYTES PERCENT AUTO 29.9 % (24.0-44.0); MEAN CORPUSCULAR HEMOGLOBIN 27.7 pg (28.0-32.0); MEAN CORPUSCULAR HGB CONC 32.7 g/dl (32.0-36.0); MEAN CORPUSCULAR VOLUME 84.5 fl (83.0-99.0); MEAN PLATELET VOLUME 9.1 fl (9.4-12.3); MONOCYTES ABSOLUTE AUTO 0.4 K/mm3 (0.0-0.8); MONOCYTES PERCENT AUTO 6.7 % (0.0-8.0); NEUTROPHILS ABSOLUTE AUTO 3.7 K/mm3 (1.8-7.7); NEUTROPHILS PERCENT AUTO 55.5 % (41.0-71.0); PLATELET COUNT,PLT 346 K/mm3 (150-400); RED BLOOD CELL COUNT 5.24 M/mm3 (4.10-5.30); WHITE BLOOD CELL COUNT,WBC 6.59 K/mm3 (3.9-11.3)
[2023-09-25] MEDS: Albuterol/Ipratropium 3.0-0.5 MG/3 ML Neb Soln NEB ONE (07:15)
[2023-09-25 07:16] LABS: A/G RATIO 0.9 (1-2); ALBUMIN 3.3 g/dl (3.4-5.0); BILIRUBIN TOTAL 0.2 mg/dL (0.2-1.0); BUN/CREATININE RATIO 12.5 (14-18); C-REACTIVE PROTEIN 0.07 mg/dL (<0.30); CALCIUM 8.8 mg/dL (8.5-10.1); CREATININE 0.8 mg/dL (0.55-1.02); EST CRCL DRUG DOSING (CG) 85.45 mL/min; MAGNESIUM 1.9 mg/dL (1.8-2.4)
[2023-09-25] MEDS: Sodium Chloride 0.9% 100 ML IV SCH (07:54)
[2023-09-25] MEDS: Iopamidol 755 Mg/ML 100 ML Bottle IVPUSH ONE (07:54)
[2023-09-25 08:31] LABS: CORONAVIRUS COVID-19 NAA POSITIVE (NEGATIVE); INFLUENZA A NAA NEGATIVE (NEGATIVE); RESPIRATORY SYNCYTIAL VIR NAA NEGATIVE (NEGATIVE)
[2023-09-25] MEDS: Morphine 2 MG/ML SYRINGE IVPUSH ONE (10:30)
[2023-09-25] MEDS: methylPREDNISolone Sodium Succinate 125 MG/2 ML SDV IVPUSH ONE (10:30)
[2023-09-25] MEDS: hydrOXYzine HCl 25 MG/ML SDV IM ONE (12:31)
[2023-09-25] MEDS: Aspirin 81 MG Tab.Chew PO ONE (13:21)
[2023-09-25] MEDS: ClonazePAM 0.5 MG Tab PO ONE (13:48)
[2023-09-25 15:46] VITALS: BP 142/89; PULSE 79
== END 2023-09-25 14:25 ==
LOC: JD.ED 06:23
DX: I21.4 Non-ST elevation (NSTEMI) myocardial infarction (principal); U07.1 COVID-19; F41.9 Anxiety disorder, unspecified; I10 Essential (primary) hypertension; J45.909 Unspecified asthma, uncomplicated; Z91.013 Allergy to seafood
CPT/HCPCS: 0241U; 36415; 71275; 80053; 83735; 84484; 84703; 85025; 85379; 86140; 93005; 96372; 96374; 96375; 96376; 99285; A9270; J2270; J2919; J3410; J3490; Q9967; 93010; J7620-GY

== ENCOUNTER 2023-10-15 12:48 | Inpatient (IN) | payer BC ==
[2023-10-15 13:37] LABS: BASOPHILS ABSOLUTE AUTO 0.1 K/mm3 (0.0-0.2); BASOPHILS PERCENT AUTO 0.4 % (0.0-1.0); EOSINOPHILS ABSOLUTE AUTO 0.3 K/mm3 (0.0-0.4); EOSINOPHILS PERCENT AUTO 1.8 % (0.0-6.0); HEMATOCRIT 37.5 % (37.0-47.0); HEMOGLOBIN 12.8 gm/dl (12.0-16.0); IMMATURE GRAN ABSOLUTE AUTO 0.06 K/mm3 (0.00-0.05); IMMATURE GRAN PERCENT AUTO 0.4 % (0.0-0.4); LYMPHOCYTES ABSOLUTE AUTO 1.4 K/mm3 (1.0-4.8); MEAN CORPUSCULAR HEMOGLOBIN 28.6 pg (28.0-32.0); MEAN CORPUSCULAR HGB CONC 34.1 g/dl (32.0-36.0); MEAN CORPUSCULAR VOLUME 83.9 fl (83.0-99.0); MEAN PLATELET VOLUME 9.2 fl (9.4-12.3); MONOCYTES ABSOLUTE AUTO 1.5 K/mm3 (0.0-0.8); MONOCYTES PERCENT AUTO 9.6 % (0.0-8.0); NEUTROPHILS ABSOLUTE AUTO 12.7 K/mm3 (1.8-7.7); NEUTROPHILS PERCENT AUTO 78.8 % (41.0-71.0); PLATELET COUNT,PLT 289 K/mm3 (150-400); RED BLOOD CELL COUNT 4.47 M/mm3 (4.10-5.30); WHITE BLOOD CELL COUNT,WBC 16.05 K/mm3 (3.9-11.3)
[2023-10-15] MEDS: Albuterol/Ipratropium 3.0-0.5 MG/3 ML Neb Soln NEB ONE (13:49)
[2023-10-15 13:56] LABS: A/G RATIO 0.8 (1-2); ALANINE AMINOTRANSFERASE,ALT 25 U/L (14-59); ALBUMIN 3.2 g/dl (3.4-5.0); ALKALINE PHOSPHATASE 75 U/L (46-116); ANION GAP 14.5 (5-15); ASPARTATE AMNIOTRANSFERASE,AST 32 U/L (15-37); BILIRUBIN TOTAL 0.6 mg/dL (0.2-1.0); BLOOD UREA NITROGEN,BUN 9 mg/dL (7-18); BUN/CREATININE RATIO 11.3 (14-18); CALCIUM 8.6 mg/dL (8.5-10.1); CARBON DIOXIDE,CO2 25 mEq/L (21-32); CHLORIDE,CL 99 mEq/L (98-107); CREATININE 0.8 mg/dL (0.55-1.02); EST CRCL DRUG DOSING (CG) 85.45 mL/min; ESTIMATED GFR 92 mL/min (>60); GLUCOSE RANDOM 120 mg/dL (70-99); MAGNESIUM 1.7 mg/dL (1.8-2.4); POTASSIUM,K 3.5 mEq/L (3.5-5.1); PROTEIN TOTAL,TP 7.1 g/dl (6.4-8.2); SODIUM,NA 135 mEq/L (136-145)
[2023-10-15 13:57] LABS: LACTIC ACID 0.5 mmol/L (0.4-2.0)
[2023-10-15 14:00] LABS: TROPONIN I HIGH SENSITIVITY < 4 pg/mL (<=51)
[2023-10-15] MEDS: Sodium Chloride 0.9% 2,000 ML IV ONE (14:01)
[2023-10-15] MEDS: methylPREDNISolone Sodium Succinate 125 MG/2 ML SDV IVPUSH ONE (14:03)
[2023-10-15 14:05] LABS: SLIDE REVIEW ABNORMAL SMEAR
[2023-10-15] MEDS ORDERED: Magnesium Sulfate (4.06 MEQ/ML) 5 GM/10 ML SDV IV STA (14:09)
[2023-10-15] MEDS: cefTRIAXone 1 GM in Sodium Chloride 0.9% 100 ML IV ONE (14:22)
[2023-10-15] MEDS: Sodium Chloride 0.9% 100 ML IV SCH (15:09)
[2023-10-15] MEDS: Iopamidol 755 Mg/ML 100 ML Bottle IVPUSH ONE (15:09)
[2023-10-15] MEDS: Acetaminophen/oxyCODONE 325-5 MG Tab PO ONE (15:18)
[2023-10-15] MEDS: Azithromycin 500 MG in Sodium Chloride 0.9% 250 ML IV ONE (15:20)
[2023-10-15 15:47] LABS: CORONAVIRUS COVID-19 NAA NEGATIVE (NEGATIVE); INFLUENZA A NAA NEGATIVE (NEGATIVE); RESPIRATORY SYNCYTIAL VIR NAA NEGATIVE (NEGATIVE)
[2023-10-15] MEDS ORDERED: Ondansetron 4 MG Tab.DIS PO PRN (17:09)
[2023-10-15] MEDS: ClonazePAM 0.5 MG Tab PO PRN (18:49)
[2023-10-15] MEDS: Albuterol/Ipratropium 3.0-0.5 MG/3 ML Neb Soln NEB SCH (21:10)
[2023-10-15] MEDS: Formoterol/Mometasone 200-5 MCG 8.8 GM Inhaler INH SCH (21:10)
[2023-10-15] MEDS: cloNIDine 0.1 MG Tab PO SCH (21:17)
[2023-10-15] MEDS: Acetaminophen/oxyCODONE 325-5 MG Tab PO PRN (21:17)
[2023-10-15] MEDS: Sodium Chloride 0.9% 1,000 ML IV SCH (21:33)
[2023-10-16 03:22] LABS: APPEARANCE,URINE CLEAR (Clear); BILIRUBIN,URINE NEGATIVE (Negative); COLOR,URINE YELLOW (Yellow); GLUCOSE,URINE 2+ (Negative); KETONES,URINE NEGATIVE (Negative); LEUKOCYTE ESTERASE,URINE 1+ (Negative); NITRITE,URINE NEGATIVE (Negative); OCCULT BLOOD,URINE NEGATIVE (Negative); PH,URINE 6.5 (5.0-8.0); PROTEIN,URINE NEGATIVE (Negative); UROBILINOGEN,URINE 0.2 (0.2-1.0)
[2023-10-16 03:31] LABS: RBC,URINE 0-5 /hpf (0-5)
[2023-10-16 03:32] LABS: BACTERIA,URINE FEW /hpf (FEW); MUCUS,URINE RARE /hpf (FEW)
[2023-10-16 05:30] LABS: BASOPHILS PERCENT AUTO 0.1 % (0.0-1.0); HEMATOCRIT 34.8 % (37.0-47.0); HEMOGLOBIN 11.6 gm/dl (12.0-16.0); IMMATURE GRAN ABSOLUTE AUTO 0.08 K/mm3 (0.00-0.05); IMMATURE GRAN PERCENT AUTO 0.6 % (0.0-0.4); LYMPHOCYTES ABSOLUTE AUTO 0.4 K/mm3 (1.0-4.8); LYMPHOCYTES PERCENT AUTO 2.8 % (24.0-44.0); MEAN CORPUSCULAR HEMOGLOBIN 28.2 pg (28.0-32.0); MEAN CORPUSCULAR HGB CONC 33.3 g/dl (32.0-36.0); MEAN CORPUSCULAR VOLUME 84.7 fl (83.0-99.0); MEAN PLATELET VOLUME 9.6 fl (9.4-12.3); MONOCYTES ABSOLUTE AUTO 0.5 K/mm3 (0.0-0.8); MONOCYTES PERCENT AUTO 3.5 % (0.0-8.0); NEUTROPHILS ABSOLUTE AUTO 13.2 K/mm3 (1.8-7.7); PLATELET COUNT,PLT 244 K/mm3 (150-400); RED BLOOD CELL COUNT 4.11 M/mm3 (4.10-5.30); WHITE BLOOD CELL COUNT,WBC 14.23 K/mm3 (3.9-11.3)
[2023-10-16 06:08] LABS: SLIDE REVIEW ABNORMAL SMEAR
[2023-10-16 06:29] LABS: A/G RATIO 0.6 (1-2); ALBUMIN 2.5 g/dl (3.4-5.0); ANION GAP 16.9 (5-15); BILIRUBIN TOTAL 0.1 mg/dL (0.2-1.0); BUN/CREATININE RATIO 13.3 (14-18); CALCIUM 8.7 mg/dL (8.5-10.1); CREATININE 0.6 mg/dL (0.55-1.02); EST CRCL DRUG DOSING (CG) 113.93 mL/min; POTASSIUM,K 3.9 mEq/L (3.5-5.1); PROTEIN TOTAL,TP 6.6 g/dl (6.4-8.2)
[2023-10-16 07:57] LABS: C-REACTIVE PROTEIN 17.4 mg/dL (<0.30); MAGNESIUM 2.2 mg/dL (1.8-2.4)
[2023-10-16] MEDS: Enoxaparin 40 MG/0.4 ML Syringe SUBCUT SCH (09:56)
[2023-10-16] MEDS: Azithromycin 500 MG in Sodium Chloride 0.9% 250 ML IV SCH (12:28)
[2023-10-16] MEDS: cefTRIAXone 1 GM in Sodium Chloride 0.9% 100 ML IV SCH (13:54)
[2023-10-16] MEDS: LORazepam 2 MG/ML SDV IVPUSH PRN (17:59)
[2023-10-17 05:57] LABS: BASOPHILS PERCENT AUTO 0.3 % (0.0-1.0); EOSINOPHILS ABSOLUTE AUTO 0.2 K/mm3 (0.0-0.4); EOSINOPHILS PERCENT AUTO 2.1 % (0.0-6.0); HEMATOCRIT 31.6 % (37.0-47.0); HEMOGLOBIN 10.5 gm/dl (12.0-16.0); IMMATURE GRAN ABSOLUTE AUTO 0.04 K/mm3 (0.00-0.05); IMMATURE GRAN PERCENT AUTO 0.4 % (0.0-0.4); LYMPHOCYTES ABSOLUTE AUTO 1.7 K/mm3 (1.0-4.8); LYMPHOCYTES PERCENT AUTO 15.8 % (24.0-44.0); MEAN CORPUSCULAR HEMOGLOBIN 28.4 pg (28.0-32.0); MEAN CORPUSCULAR HGB CONC 33.2 g/dl (32.0-36.0); MEAN CORPUSCULAR VOLUME 85.4 fl (83.0-99.0); MEAN PLATELET VOLUME 9.1 fl (9.4-12.3); MONOCYTES PERCENT AUTO 8.9 % (0.0-8.0); NEUTROPHILS ABSOLUTE AUTO 7.7 K/mm3 (1.8-7.7); NEUTROPHILS PERCENT AUTO 72.5 % (41.0-71.0); PLATELET COUNT,PLT 254 K/mm3 (150-400); WHITE BLOOD CELL COUNT,WBC 10.63 K/mm3 (3.9-11.3)
[2023-10-17 06:33] LABS: A/G RATIO 0.6 (1-2); ALBUMIN 2.2 g/dl (3.4-5.0); ANION GAP 13.7 (5-15); BILIRUBIN TOTAL 0.1 mg/dL (0.2-1.0); C-REACTIVE PROTEIN 6.81 mg/dL (<0.30); CALCIUM 8.1 mg/dL (8.5-10.1); CREATININE 0.5 mg/dL (0.55-1.02); EST CRCL DRUG DOSING (CG) 136.72 mL/min; POTASSIUM,K 3.7 mEq/L (3.5-5.1); PROTEIN TOTAL,TP 5.8 g/dl (6.4-8.2)
[2023-10-17] MEDS ORDERED: Naloxone 0.4 MG/ML SDV IVPUSH PRN (09:11)
[2023-10-17] MEDS: Morphine 2 MG/ML SYRINGE IVPUSH ONE (09:24)
[2023-10-17] MEDS: methylPREDNISolone Sodium Succinate 125 MG/2 ML SDV IVPUSH ONE (09:24)
[2023-10-17 09:28] LABS: BICARBONATE,ARTERIAL 20.1 meq/L (22.0-26.0); O2 SATURATION ARTERIAL 93.6 % (96.0-97.0); PCO2 ARTERIAL 35.3 mmHg (35.0-45.0)
[2023-10-17] MEDS: Potassium Chloride 20 MEQ Tab.ER PO ONE (09:52)
[2023-10-17] MEDS: SIROLIMUS 1 MG PO SCH (11:52)
[2023-10-17] MEDS ORDERED: Acetaminophen/oxyCODONE 325-5 MG Tab PO PRN (12:34)
[2023-10-17] MEDS: Acetaminophen/oxyCODONE 325-5 MG Tab PO PRN (12:58)
[2023-10-17] MEDS: oxyCODONE 5 MG Tab PO PRN (17:51)
[2023-10-17] MEDS ORDERED: Promethazine 6.25 MG/5 ML Liquid 10 ML UD Cup PO PRN (20:45)
[2023-10-18 04:50] LABS: BASOPHILS PERCENT AUTO 0.1 % (0.0-1.0); HEMATOCRIT 32.3 % (37.0-47.0); HEMOGLOBIN 10.6 gm/dl (12.0-16.0); IMMATURE GRAN ABSOLUTE AUTO 0.03 K/mm3 (0.00-0.05); IMMATURE GRAN PERCENT AUTO 0.3 % (0.0-0.4); LYMPHOCYTES ABSOLUTE AUTO 0.8 K/mm3 (1.0-4.8); LYMPHOCYTES PERCENT AUTO 8.7 % (24.0-44.0); MEAN CORPUSCULAR HGB CONC 32.8 g/dl (32.0-36.0); MEAN CORPUSCULAR VOLUME 85.2 fl (83.0-99.0); MEAN PLATELET VOLUME 10.2 fl (9.4-12.3); MONOCYTES ABSOLUTE AUTO 0.6 K/mm3 (0.0-0.8); MONOCYTES PERCENT AUTO 7.2 % (0.0-8.0); NEUTROPHILS ABSOLUTE AUTO 7.3 K/mm3 (1.8-7.7); NEUTROPHILS PERCENT AUTO 83.7 % (41.0-71.0); PLATELET COUNT,PLT 276 K/mm3 (150-400); RED BLOOD CELL COUNT 3.79 M/mm3 (4.10-5.30); WHITE BLOOD CELL COUNT,WBC 8.74 K/mm3 (3.9-11.3)
[2023-10-18 05:32] LABS: ANION GAP 13.4 (5-15); CREATININE 0.5 mg/dL (0.55-1.02); EST CRCL DRUG DOSING (CG) 136.72 mL/min; MAGNESIUM 1.8 mg/dL (1.8-2.4); PHOSPHORUS 2.9 mg/dL (2.6-4.7); POTASSIUM,K 4.4 mEq/L (3.5-5.1)
[2023-10-18] MEDS: Losartan 50 MG Tab PO SCH (08:02)
[2023-10-18] MEDS: Phosphorus #1 250 MG Tab PO ONE (10:14)
[2023-10-18] MEDS: Magnesium Sulfate/Water 2 GM in Premix Bag 1 BAG IV ONE (10:14)
[2023-10-18] MEDS ORDERED: PROMETHAZINE 6.25 MG/5 ML PO PRN (10:56)
[2023-10-19 05:04] LABS: ANION GAP 11.4 (5-15); BUN/CREATININE RATIO 14.3 (14-18); CALCIUM 8.4 mg/dL (8.5-10.1); CREATININE 0.7 mg/dL (0.55-1.02); EST CRCL DRUG DOSING (CG) 97.65 mL/min; PHOSPHORUS 4.1 mg/dL (2.6-4.7); POTASSIUM,K 4.4 mEq/L (3.5-5.1)
[2023-10-19 12:19] VITALS: BP 157/96; PULSE 86
== END 2023-10-19 15:18 | disposition home or self-care (01) | DRG 720 ==
LOC: JD.ED 12:48 → JD.MS 15:41
PROVIDERS: ADMIT Family Medicine; ATTEND Family Medicine
DX: A41.9 Sepsis, unspecified organism (principal); J18.9 Pneumonia, unspecified organism; I10 Essential (primary) hypertension; F32.A Depression, unspecified; J96.21 Acute and chronic respiratory failure with hypoxia
CPT/HCPCS: 0241U; 36415; 36600; 71045; 71045-26; 71275; 71275-26; 80048; 80053; 81001; 82803; 83605; 83735; 84100; 84484; 85025; 85379; 86140; 87040; 87086; 87154; 93005; 93010; 94640; 94760; 94761; 94762; 96365; 96368; 96375; 99285; 99285-25; A9270-GY; J0456; J0696; J1650; J2060; J2270; J2919; J3475; J3490; J7030; J7050; J7620-GY; Q9967

== ENCOUNTER 2023-11-11 04:35 | Emergency (ER) | payer BC ==
[2023-11-11 04:43] VITALS: PULSE 80
[2023-11-11] MEDS: methylPREDNISolone Sodium Succinate 125 MG/2 ML SDV IVPUSH ONE (05:13)
[2023-11-11] MEDS: Sodium Chloride 0.9% 1,000 ML IV ONE (05:13)
[2023-11-11 05:36] LABS: BASOPHILS ABSOLUTE AUTO 0.1 K/mm3 (0.0-0.2); BASOPHILS PERCENT AUTO 0.7 % (0.0-1.0); EOSINOPHILS ABSOLUTE AUTO 1.1 K/mm3 (0.0-0.4); EOSINOPHILS PERCENT AUTO 15.6 % (0.0-6.0); HEMATOCRIT 41.3 % (37.0-47.0); HEMOGLOBIN 13.4 gm/dl (12.0-16.0); IMMATURE GRAN ABSOLUTE AUTO 0.02 K/mm3 (0.00-0.05); IMMATURE GRAN PERCENT AUTO 0.3 % (0.0-0.4); LYMPHOCYTES ABSOLUTE AUTO 2.3 K/mm3 (1.0-4.8); LYMPHOCYTES PERCENT AUTO 32.8 % (24.0-44.0); MEAN CORPUSCULAR HEMOGLOBIN 28.5 pg (28.0-32.0); MEAN CORPUSCULAR HGB CONC 32.4 g/dl (32.0-36.0); MEAN CORPUSCULAR VOLUME 87.9 fl (83.0-99.0); MEAN PLATELET VOLUME 9.3 fl (9.4-12.3); MONOCYTES ABSOLUTE AUTO 0.7 K/mm3 (0.0-0.8); MONOCYTES PERCENT AUTO 9.6 % (0.0-8.0); NEUTROPHILS ABSOLUTE AUTO 2.8 K/mm3 (1.8-7.7); PLATELET COUNT,PLT 302 K/mm3 (150-400); WHITE BLOOD CELL COUNT,WBC 6.86 K/mm3 (3.9-11.3)
[2023-11-11 05:52] LABS: A/G RATIO 1.1 (1-2); ALANINE AMINOTRANSFERASE,ALT 16 U/L (14-59); ALBUMIN 3.8 g/dl (3.4-5.0); ALKALINE PHOSPHATASE 74 U/L (46-116); ANION GAP 9.7 (5-15); ASPARTATE AMNIOTRANSFERASE,AST 17 U/L (15-37); BILIRUBIN TOTAL 0.2 mg/dL (0.2-1.0); BLOOD UREA NITROGEN,BUN 7 mg/dL (7-18); BUN/CREATININE RATIO 8.8 (14-18); C-REACTIVE PROTEIN 0.05 mg/dL (<0.30); CALCIUM 8.7 mg/dL (8.5-10.1); CARBON DIOXIDE,CO2 30 mEq/L (21-32); CHLORIDE,CL 101 mEq/L (98-107); CREATININE 0.8 mg/dL (0.55-1.02); ESTIMATED GFR 92 mL/min (>60); GLUCOSE RANDOM 92 mg/dL (70-99); MAGNESIUM 1.7 mg/dL (1.8-2.4); POTASSIUM,K 3.7 mEq/L (3.5-5.1); PROTEIN TOTAL,TP 7.3 g/dl (6.4-8.2); SODIUM,NA 137 mEq/L (136-145)
[2023-11-11] MEDS: LORazepam 2 MG/ML SDV IVPUSH ONE (08:08)
[2023-11-11] MEDS: HYDROmorphone 1 MG/ML Syringe IVPUSH ONE (08:41)
[2023-11-11] MEDS: Sodium Chloride 0.9% 10 ML Syringe FLUSH PRN (08:41)
[2023-11-11] MEDS: Albuterol/Ipratropium 3.0-0.5 MG/3 ML Neb Soln NEB ONE (08:59)
[2023-11-11 11:22] VITALS: BP 110/70
== END 2023-11-11 10:10 | disposition home or self-care (01) ==
LOC: JD.ED 04:35
DX: F41.1 Generalized anxiety disorder (principal); F15.90 Other stimulant use, unspecified, uncomplicated; I10 Essential (primary) hypertension; J45.909 Unspecified asthma, uncomplicated; Z79.899 Other long term (current) drug therapy; Z79.891 Long term (current) use of opiate analgesic; Z91.013 Allergy to seafood
CPT/HCPCS: 36415; 71045; 80053; 83735; 85025; 86140; 96374; 96375; 99285; J1170; J2060; J2919; J3360; J3490; J7030; J7620-GY

== ENCOUNTER 2024-07-04 22:05 | Emergency (ER) | payer BC ==
[2024-07-04 22:23] VITALS: BP 174/114; PULSE 119
== END 2024-07-05 00:53 | disposition home or self-care (01) ==
LOC: JD.ED 22:05
DX: J93.9 Pneumothorax, unspecified (principal); I10 Essential (primary) hypertension; J45.909 Unspecified asthma, uncomplicated; Z91.013 Allergy to seafood; Z79.899 Other long term (current) drug therapy
CPT/HCPCS: 71046; 71046-26; 99283

== ENCOUNTER 2024-08-09 21:27 | Emergency (ER) | payer BC ==
[2024-08-09] MEDS ORDERED: Sodium Chloride 0.9% 10 ML Syringe FLUSH PRN (23:19)
[2024-08-09] MEDS: Sodium Chloride 0.9% 1,000 ML IV ONE (23:50)
[2024-08-09 23:54] LABS: APPEARANCE,URINE CLEAR (Clear); BASOPHILS ABSOLUTE AUTO 0.1 K/mm3 (0.0-0.2); BASOPHILS PERCENT AUTO 0.7 % (0.0-1.0); BILIRUBIN,URINE NEGATIVE (Negative); COLOR,URINE YELLOW (Yellow); EOSINOPHILS ABSOLUTE AUTO 0.2 K/mm3 (0.0-0.4); EOSINOPHILS PERCENT AUTO 3.2 % (0.0-6.0); GLUCOSE,URINE NEGATIVE (Negative); HEMATOCRIT 43.4 % (37.0-47.0); HEMOGLOBIN 14.4 gm/dl (12.0-16.0); IMMATURE GRAN ABSOLUTE AUTO 0.01 K/mm3 (0.00-0.05); IMMATURE GRAN PERCENT AUTO 0.1 % (0.0-0.4); KETONES,URINE NEGATIVE (Negative); LEUKOCYTE ESTERASE,URINE NEGATIVE (Negative); LYMPHOCYTES ABSOLUTE AUTO 2.8 K/mm3 (1.0-4.8); LYMPHOCYTES PERCENT AUTO 39.2 % (24.0-44.0); MEAN CORPUSCULAR HEMOGLOBIN 28.2 pg (28.0-32.0); MEAN CORPUSCULAR HGB CONC 33.2 g/dl (32.0-36.0); MEAN CORPUSCULAR VOLUME 85.1 fl (83.0-99.0); MEAN PLATELET VOLUME 8.6 fl (9.4-12.3); MONOCYTES ABSOLUTE AUTO 0.7 K/mm3 (0.0-0.8); MONOCYTES PERCENT AUTO 9.2 % (0.0-8.0); NEUTROPHILS ABSOLUTE AUTO 3.4 K/mm3 (1.8-7.7); NEUTROPHILS PERCENT AUTO 47.6 % (41.0-71.0); NITRITE,URINE NEGATIVE (Negative); OCCULT BLOOD,URINE NEGATIVE (Negative); PH,URINE 5.5 (5.0-8.0); PLATELET COUNT,PLT 385 K/mm3 (150-400); PROTEIN,URINE TRACE (Negative); UROBILINOGEN,URINE 0.2 (0.2-1.0); WHITE BLOOD CELL COUNT,WBC 7.14 K/mm3 (3.9-11.3)
[2024-08-09] MEDS: Ketorolac 15 MG/ML SDV IVPUSH ONE (23:54)
[2024-08-09 23:59] LABS: BACTERIA,URINE NOT SEEN /hpf (FEW); EPITHELIAL CELLS,URINE 0-5 /hpf (0-5); MUCUS,URINE FEW /hpf (FEW); RBC,URINE 0-5 /hpf (0-5); WBC,URINE 0-5 /hpf (0-5)
[2024-08-10 00:27] LABS: A/G RATIO 0.9 (1-2); ALBUMIN 3.7 g/dl (3.4-5.0); ANION GAP 10.7 (5-15); BILIRUBIN TOTAL 0.3 mg/dL (0.2-1.0); CALCIUM 9.3 mg/dL (8.5-10.1); CREATININE 1.1 mg/dL (0.55-1.02); EST CRCL DRUG DOSING (CG) 61.48 mL/min; POTASSIUM,K 3.7 mEq/L (3.5-5.1); PROTEIN TOTAL,TP 7.7 g/dl (6.4-8.2)
[2024-08-10 02:41] VITALS: BP 133/88; PULSE 81
== END 2024-08-10 03:00 | disposition home or self-care (01) ==
LOC: JD.ED 21:27
DX: R10.9 Unspecified abdominal pain (principal); R06.02 Shortness of breath; I10 Essential (primary) hypertension; J45.909 Unspecified asthma, uncomplicated; Z91.013 Allergy to seafood; Z79.899 Other long term (current) drug therapy
CPT/HCPCS: 36415; 71046; 71046-26; 74176; 74176-26; 80053; 81001; 83690; 84484; 84703; 85025; 93005; 96361; 96374; 99284-25; J1885; J7030

== ENCOUNTER 2025-01-13 13:35 | Emergency (ER) | payer BC ==
[2025-01-13 13:39] VITALS: BP 144/79; PULSE 105
[2025-01-13] MEDS ORDERED: Sodium Chloride 0.9% 10 ML Syringe FLUSH PRN (13:59)
[2025-01-13 14:39] LABS: BASOPHILS ABSOLUTE AUTO 0.0 K/mm3 (0.0-0.2); BASOPHILS PERCENT AUTO 0.2 % (0.0-1.0); EOSINOPHILS ABSOLUTE AUTO 0.0 K/mm3 (0.0-0.4); EOSINOPHILS PERCENT AUTO 0.1 % (0.0-6.0); IMMATURE GRAN ABSOLUTE AUTO 0.03 K/mm3 (0.00-0.05); IMMATURE GRAN PERCENT AUTO 0.3 % (0.0-0.4); LYMPHOCYTES ABSOLUTE AUTO 0.4 K/mm3 (1.0-4.8); LYMPHOCYTES PERCENT AUTO 4.3 % (24.0-44.0); MEAN PLATELET VOLUME 9.3 fl (9.4-12.3); MONOCYTES ABSOLUTE AUTO 0.0 K/mm3 (0.0-0.8); MONOCYTES PERCENT AUTO 0.4 % (0.0-8.0); NEUTROPHILS ABSOLUTE AUTO 8.9 K/mm3 (1.8-7.7); NEUTROPHILS PERCENT AUTO 94.7 % (41.0-71.0); NRBC ABSOLUTE 0.00 (0.00-0.02); NRBC PERCENT 0.0 % (0.0-0.2); PLATELET COUNT,PLT 356 K/mm3 (150-400); RED BLOOD CELL COUNT 5.15 M/mm3 (4.10-5.30); WHITE BLOOD CELL COUNT,WBC 9.35 K/mm3 (3.9-11.3)
[2025-01-13] MEDS: methylPREDNISolone Sodium Succinate 125 MG/2 ML SDV IVPUSH ONE (14:55)
[2025-01-13 15:02] LABS: A/G RATIO 1.1 (1-2); ALANINE AMINOTRANSFERASE,ALT 29 U/L (14-59); ASPARTATE AMNIOTRANSFERASE,AST 30 U/L (15-37); BILIRUBIN TOTAL 0.3 mg/dL (0.2-1.0); BLOOD UREA NITROGEN,BUN 18 mg/dL (7-18); CARBON DIOXIDE,CO2 29 mEq/L (21-32); CHLORIDE,CL 101 mEq/L (98-107); CREATININE 0.8 mg/dL (0.55-1.02); ESTIMATED GFR 91 mL/min (>60); GLUCOSE RANDOM 126 mg/dL (70-99); POTASSIUM,K 4.4 mEq/L (3.5-5.1); PROTEIN TOTAL,TP 8.0 g/dl (6.4-8.2); SODIUM,NA 139 mEq/L (136-145)
[2025-01-13] MEDS: Albuterol 0.083% 2.5 MG/3 ML Neb Soln NEB ONE (16:22)
[2025-01-13 17:34] LABS: CORONAVIRUS COVID-19 NAA NEGATIVE (NEGATIVE); INFLUENZA A NAA NEGATIVE (NEGATIVE); RESPIRATORY SYNCYTIAL VIR NAA NEGATIVE (NEGATIVE)
== END 2025-01-13 17:20 | disposition home or self-care (01) ==
LOC: JD.ED 13:35
DX: J45.901 Unspecified asthma with (acute) exacerbation (principal); J18.9 Pneumonia, unspecified organism; I10 Essential (primary) hypertension; Z91.013 Allergy to seafood; Z79.899 Other long term (current) drug therapy; Z86.16 Personal history of COVID-19
CPT/HCPCS: 36415; 71045; 80053; 84703; 85025; 87040; 87637; 94640; 96361; 96374; 99285; A9270; J2919; J7030; J7613; J7620; 99284

== ENCOUNTER 2025-02-06 20:24 | Emergency (ER) | payer BC ==
[2025-02-06 20:55] LABS: BASOPHILS ABSOLUTE AUTO 0.1 K/mm3 (0.0-0.2); BASOPHILS PERCENT AUTO 1.4 % (0.0-1.0); EOSINOPHILS ABSOLUTE AUTO 0.5 K/mm3 (0.0-0.4); EOSINOPHILS PERCENT AUTO 7.4 % (0.0-6.0); IMMATURE GRAN ABSOLUTE AUTO 0.02 K/mm3 (0.00-0.05); IMMATURE GRAN PERCENT AUTO 0.3 % (0.0-0.4); LYMPHOCYTES ABSOLUTE AUTO 2.5 K/mm3 (1.0-4.8); LYMPHOCYTES PERCENT AUTO 35.4 % (24.0-44.0); MEAN PLATELET VOLUME 9.2 fl (9.4-12.3); MONOCYTES ABSOLUTE AUTO 0.7 K/mm3 (0.0-0.8); MONOCYTES PERCENT AUTO 9.5 % (0.0-8.0); NEUTROPHILS ABSOLUTE AUTO 3.2 K/mm3 (1.8-7.7); NEUTROPHILS PERCENT AUTO 46.0 % (41.0-71.0); NRBC ABSOLUTE 0.00 (0.00-0.02); NRBC PERCENT 0.0 % (0.0-0.2); PLATELET COUNT,PLT 329 K/mm3 (150-400); RED BLOOD CELL COUNT 5.06 M/mm3 (4.10-5.30); WHITE BLOOD CELL COUNT,WBC 7.03 K/mm3 (3.9-11.3)
[2025-02-06] MEDS: Acetaminophen/oxyCODONE 325-5 MG Tab PO ONE (20:55)
[2025-02-06] MEDS: LORazepam 2 MG/ML SDV IVPUSH STA (20:55)
[2025-02-06] MEDS ORDERED: Sodium Chloride 0.9% 10 ML Syringe FLUSH ONE (20:56)
[2025-02-06 21:06] LABS: A/G RATIO 1.1 (1-2); ALANINE AMINOTRANSFERASE,ALT 26.0 U/L (14-59); ASPARTATE AMNIOTRANSFERASE,AST 27.0 U/L (15-37); BILIRUBIN TOTAL 0.3 mg/dL (0.2-1.0); BLOOD UREA NITROGEN,BUN 11.0 mg/dL (7-18); CARBON DIOXIDE,CO2 29.0 mEq/L (21-32); CHLORIDE,CL 100.0 mEq/L (98-107); CREATINE KINASE,CK 131.0 U/L (26-192); CREATININE 0.8 mg/dL (0.55-1.02); EST CRCL DRUG DOSING (CG) 83.63 mL/min; ESTIMATED GFR 91.0 mL/min (>60); GLUCOSE RANDOM 69.0 mg/dL (70-99); POTASSIUM,K 3.7 mEq/L (3.5-5.1); PROTEIN TOTAL,TP 7.7 g/dl (6.4-8.2); SODIUM,NA 138.0 mEq/L (136-145)
[2025-02-06] MEDS: Iopamidol 755 Mg/ML 100 ML Bottle IVPUSH ONE (21:18)
[2025-02-06 22:56] VITALS: BP 119/70; PULSE 96
== END 2025-02-06 22:50 | disposition home or self-care (01) ==
LOC: JD.ED 20:24
DX: J84.81 Lymphangioleiomyomatosis (principal); M62.838 Other muscle spasm; E86.0 Dehydration; I10 Essential (primary) hypertension; J45.909 Unspecified asthma, uncomplicated; Z86.16 Personal history of COVID-19; Z91.013 Allergy to seafood; Z79.899 Other long term (current) drug therapy
CPT/HCPCS: 36415; 71275; 80053; 82550; 83690; 83735; 84484; 85025; 93005; 96361; 96374; 99285; A9270; J2060; J7030; Q9967; 93010; 99284